=== PATIENT | female | born 1945 | race Caucasian/White ===

== ENCOUNTER → 2016-11-28 | Outpatient (CLI) | payer MEDICARE, OTHER ==
--- NOTE | 2016-11-28 12:06 | MM ---
Reason for exam: additional evaluation requested from prior study. Last mammogram was performed 1 year ago. History: Patient is postmenopausal and has history of breast cancer at age 63. Family history of premenopausal breast cancer in mother at age 45. Malignant left breast needle localization of both breasts, November 28, 2008. Malignant left mammotome panel of the left breast, November 17, 2008. Radiation therapy of the left breast, 2008. Physical Findings: Nurse did not find any significant physical abnormalities on exam. MG 3D Diag Mammo W/Cad FEDERICA Bilateral CC and MLO view(s) were taken. Prior study comparison: November 26, 2015, bilateral MG 3d diag mammo w/cad FEDERICA. November 24, 2014, bilateral MG diagnostic mammo w CAD FEDERICA. Finding: There are typically benign calcifications in both breasts. Skin thickening on left is chronic. Previous biopsy changes on left breast. These results were verbally communicated with the patient and result sheet given to the patient on 11/28/16. ASSESSMENT: Benign, BI-RAD 2 RECOMMENDATION: Follow-up diagnostic mammogram of both breasts in 1 year.
== END | disposition home or self-care (01) ==
LOC: RADMAMWWP 11:05
PROVIDERS: ATTEND Radiology Diagnostic Radiology
DX: Z85.3 Personal history of malignant neoplasm of breast (principal)
CPT/HCPCS: G0204; G0279

== ENCOUNTER → 2017-11-30 | Outpatient (CLI) | payer MEDICARE, OTHER ==
--- NOTE | 2017-11-30 15:17 | MM ---
Reason for exam: additional evaluation requested from prior study. Last mammogram was performed 1 year ago. History: Patient is postmenopausal and has history of breast cancer at age 63. Family history of premenopausal breast cancer in mother at age 45. Malignant left breast needle localization of both breasts, November 28, 2008. Malignant left mammotome panel of the left breast, November 17, 2008. Radiation therapy of the left breast, 2008. Physical Findings: Nurse did not find any significant physical abnormalities on exam. MG 3D Diag Mammo W/Cad FEDERICA Bilateral CC and MLO view(s) were taken. Prior study comparison: November 28, 2016, bilateral MG 3d diag mammo w/cad FEDERICA. November 26, 2015, bilateral MG 3d diag mammo w/cad FEDERICA. November 24, 2014, bilateral MG diagnostic mammo w CAD FEDERICA. The breast tissue is heterogeneously dense. This may lower the sensitivity of mammography. Finding #1: There is a density in the left breast with distortion consistent with lumpectomy changes. Decrease in size. Finding #2: There are benign round, linear calcifications in both breasts. No discrete abnormality. These results were verbally communicated with the patient and result sheet given to the patient on 11/30/17. ASSESSMENT: Benign, BI-RAD 2 RECOMMENDATION: Follow-up diagnostic mammogram of both breasts in 1 year.
== END | disposition home or self-care (01) ==
LOC: RADMAMWWP 10:52
PROVIDERS: ATTEND Radiology Diagnostic Radiology
DX: Z08 Encounter for follow-up examination after completed treatment for malignant neoplasm (principal); Z85.3 Personal history of malignant neoplasm of breast
CPT/HCPCS: 77066; G0279; 77062

== ENCOUNTER → 2018-10-29 | Outpatient (CLI) | payer MEDICARE ==
--- NOTE | 2018-10-29 15:35 | XR ---
EXAMINATION TYPE: XR Hip Complete LT DATE OF EXAM: 10/29/2018 COMPARISON: None HISTORY: Pain TECHNIQUE: 2 view left hip FINDINGS: Femoral head articulates with the acetabulum. Mild narrowing of the joint space is present. No acute fractures or dislocations are evident. IMPRESSION: 1. Minimal degenerative joint changes of the left hip.
--- NOTE | 2018-10-29 15:37 | XR ---
EXAMINATION TYPE: XR lumbosacral spine min 4V DATE OF EXAM: 10/29/2018 COMPARISON: None HISTORY: Pain lower back TECHNIQUE: Five-view lumbar spine FINDINGS: Vascular calcification is within the aorta. Some minimal fusiform prominence of the distal abdominal aorta is not excluded. Loss of disc height is present L5-S1. Some posterior disc space narr owing is present through the remaining portions of the lumbar spine. Facet degenerative changes present which appears greater at the L5-S1 level IMPRESSION: 1. Degenerative facet changes. No acute abnormality evident. 2. There is some prominence of the calcified aorta and the oblique view. Consider ultrasound for aort ic evaluation for aneurysm.
== END | disposition home or self-care (01) ==
LOC: RADXRMAIN 14:27
PROVIDERS: ATTEND Internal Medicine
DX: M47.817 Spondylosis without myelopathy or radiculopathy, lumbosacral region (principal); M16.12 Unilateral primary osteoarthritis, left hip
CPT/HCPCS: 72110; 73502

== ENCOUNTER → 2018-12-03 | Outpatient (CLI) | payer MEDICARE ==
--- NOTE | 2018-12-04 08:12 | MM ---
Reason for exam: additional evaluation requested from prior study. Last mammogram was performed 1 year ago. History: Patient is postmenopausal and has history of breast cancer at age 63. Family history of premenopausal breast cancer in mother at age 45. Malignant left breast needle localization of both breasts, November 28, 2008. Malignant left mammotome panel of the left breast, November 17, 2008. Radiation therapy of the left breast, 2008. Physical Findings: Patient refused breast exam. MG 3D Diag Mammo W/Cad FEDERICA Bilateral CC and MLO view(s) were taken. ML and spot compression CC view(s) were taken of the right breast. Prior study comparison: November 30, 2017, bilateral MG 3d diag mammo w/cad FEDERICA. November 28, 2016, bilateral MG 3d diag mammo w/cad FEDERICA. The breast tissue is heterogeneously dense. This may lower the sensitivity of mammography. Stable benign calcifications. Stable post operative changes in the left breast. No significant new findings when compared with previous films. These results were verbally communicated with the patient and result sheet given to the patient on 12/03/18. ASSESSMENT: Benign, BI-RAD 2 RECOMMENDATION: Follow-up diagnostic mammogram of both breasts in 1 year.
== END | disposition home or self-care (01) ==
LOC: RADMAMWWP 14:01
PROVIDERS: ATTEND Radiology Diagnostic Radiology
DX: Z08 Encounter for follow-up examination after completed treatment for malignant neoplasm (principal); Z85.3 Personal history of malignant neoplasm of breast
CPT/HCPCS: 77066; G0279; 77062

== ENCOUNTER → 2019-04-22 | Outpatient (CLI) | payer MEDICARE ==
--- NOTE | 2019-04-22 09:00 | US ---
EXAMINATION TYPE: US duplex aorta DATE OF EXAM: 04/22/2019 COMPARISON: NONE CLINICAL HISTORY: I70.0 Atherosclerosis of aorta. Calcified aorta EXAM MEASUREMENTS: Abdominal Aorta: Proximal: 2.7 x 2.6cm Mid: 3.1 x 2.7cm Distal: 3.6 x 2.8cm Bifurcation: RT: 1.1 x 0.8cm LT: 1.0 x 0.8cm Calcifications noted throughout abdominal aorta. Mild mid and distal abdominal aortic aneurysm. 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 Moderate atheromatous changes throughout the visualized abdominal aor ta.
== END ==
LOC: RADUSWWP 08:27
PROVIDERS: ATTEND Internal Medicine
DX: I71.4 Abdominal aortic aneurysm, without rupture (principal); I70.0 Atherosclerosis of aorta
CPT/HCPCS: 93979

== ENCOUNTER → 2019-12-05 | Outpatient (CLI) | payer MEDICARE ==
--- NOTE | 2019-12-05 14:28 | MM ---
Reason for exam: additional evaluation requested from prior study. Last mammogram was performed 1 year ago. History: Patient is postmenopausal and has history of breast cancer at age 63. Family history of premenopausal breast cancer in mother at age 45. Malignant left breast needle localization of both breasts, November 28, 2008. Malignant left mammotome panel of the left breast, November 17, 2008. Lumpectomy of the left breast, 2008. Radiation therapy of the left breast, 2008. Physical Findings: Nurse did not find any significant physical abnormalities on exam. MG 3D Diag Mammo W/Cad FEDERICA Bilateral CC and MLO view(s) were taken. Prior study comparison: December 03, 2018, bilateral MG 3d diag mammo w/cad FEDERICA. November 30, 2017, bilateral MG 3d diag mammo w/cad FEDERICA. The breast tissue is heterogeneously dense. This may lower the sensitivity of mammography. Benign calcifications. Post lumpectomy changes on left breast. These results were verbally communicated with the patient and result sheet given to the patient on 12/05/19. ASSESSMENT: Benign, BI-RAD 2 RECOMMENDATION: Follow-up diagnostic mammogram of both breasts in 1 year.
== END | disposition home or self-care (01) ==
LOC: RADMAMWWP 12:49
PROVIDERS: ATTEND Radiology Diagnostic Radiology
DX: Z08 Encounter for follow-up examination after completed treatment for malignant neoplasm (principal); Z85.3 Personal history of malignant neoplasm of breast
CPT/HCPCS: 77066; G0279; 77062

== ENCOUNTER → 2020-12-07 | Outpatient (CLI) | payer MEDICARE ==
--- NOTE | 2020-12-07 13:56 | MM ---
Reason for exam: additional evaluation requested from prior study. Last mammogram was performed 1 year ago. History: Patient is postmenopausal and has history of breast cancer at age 63. Family history of premenopausal breast cancer in mother at age 45. Malignant left breast needle localization of both breasts, November 28, 2008. Malignant left mammotome panel of the left breast, November 17, 2008. Lumpectomy of the left breast, 2008. Radiation therapy of the left breast, 2008. Physical Findings: Nurse did not find any significant physical abnormalities on exam. MG 3D Diag Mammo W/Cad FEDERICA Bilateral CC and MLO view(s) were taken. Prior study comparison: December 05, 2019, bilateral MG 3d diag mammo w/cad FEDERICA. December 03, 2018, bilateral MG 3d diag mammo w/cad FEDERICA. November 30, 2017, bilateral MG 3d diag mammo w/cad FEDERICA. November 28, 2016, bilateral MG 3d diag mammo w/cad FEDERICA. There are scattered fibroglandular densities. Post operative changes left breast. Benign secretory calcifications. No significant new findings when compared with previous films. These results were verbally communicated with the patient and result sheet given to the patient on 12/07/20. ASSESSMENT: Benign, BI-RAD 2 RECOMMENDATION: Routine screening mammogram of both breasts in 1 year.
== END | disposition home or self-care (01) ==
LOC: RADMAMWWP 12:49
PROVIDERS: ATTEND Radiology Diagnostic Radiology
DX: N64.89 Other specified disorders of breast (principal); R92.1 Mammographic calcification found on diagnostic imaging of breast; Z78.0 Asymptomatic menopausal state; Z80.3 Family history of malignant neoplasm of breast; Z85.3 Personal history of malignant neoplasm of breast
CPT/HCPCS: 77066; G0279; 77062

== ENCOUNTER → 2021-03-11 | Outpatient (CLI) | payer MEDICARE ==
[2021-03-11 13:56] LABS: HCT 41.7 % (34.0-46.0); HGB 13.1 gm/dL (11.4-16.0); MCH 31.9 pg (25.0-35.0); MCHC 31.5 g/dL (31.0-37.0); Platelet Count 193 k/uL (150-450); RBC 4.13 m/uL (3.80-5.40); WBC 10.6 k/uL (3.8-10.6)
[2021-03-11 13:57] LABS: Appearance,Urine Clear (Clear); Bacteria,Urine Rare /hpf; Bilirubin,Urine Negative (Negative); Blood,Urine Small (Negative); Color,Urine Yellow; Glucose,Urine (UA) Negative (Negative); Hyaline Casts,Urine 4 /lpf (0-2); Ketones,Urine Negative (Negative); Leukocyte Esterase,Urine Negative (Negative); Mucus,Urine Rare /hpf; Nitrite,Urine Negative (Negative); PH, Urine 5.5 (5.0-8.0); Protein,Urine 1+ (Negative); RBC,Urine 1 /hpf (0-5); Specific Gravity,Urine 1.021 (1.001-1.035); Squamous Epithelial Cell,Urine 1 /hpf (0-4); Urobilinogen,Urine <2.0 mg/dL (<2.0); WBC,Urine 1 /hpf (0-5)
[2021-03-11 14:04] LABS: Partial Thromboplastin Time 22.9 sec (22.0-30.0); Prothrombin Time 10.4 sec (9.0-12.0)
[2021-03-11 14:10] LABS: Albumin 3.9 g/dL (3.5-5.0); Calcium 9.7 mg/dL (8.4-10.2); Potassium 4.7 mmol/L (3.5-5.1); Total Bilirubin 0.3 mg/dL (0.2-1.3); Total Protein 6.8 g/dL (6.3-8.2)
== END | disposition home or self-care (01) ==
LOC: LABPAT 13:08
PROVIDERS: ATTEND Orthopaedic Surgery
DX: Z01.818 Encounter for other preprocedural examination (principal); I21.19 ST elevation (STEMI) myocardial infarction involving other coronary artery of inferior wall; I25.9 Chronic ischemic heart disease, unspecified; R00.1 Bradycardia, unspecified; R94.31 Abnormal electrocardiogram [ECG] [EKG]
CPT/HCPCS: 36415; 80053; 81001; 85027; 85610; 85730; 87070; 93005

== ENCOUNTER → 2021-04-02 | Outpatient (CLI) | payer MEDICARE ==
[2021-04-02 12:34] LABS: Potassium 4.4 mmol/L (3.5-5.1)
[2021-04-02 13:01] LABS: HCT 37.3 % (34.0-46.0); HGB 12.3 gm/dL (11.4-16.0); MCH 32.8 pg (25.0-35.0); MCV 99.2 fL (80.0-100.0); Mean Platelet Volume 8.7; Platelet Count 153 k/uL (150-450); RBC 3.76 m/uL (3.80-5.40); RDW 13.1 % (11.5-15.5); WBC 11.3 k/uL (3.8-10.6)
== END | disposition home or self-care (01) ==
LOC: LABPAT 10:35
PROVIDERS: ATTEND Internal Medicine Interventional Cardiology
DX: Z01.812 Encounter for preprocedural laboratory examination (principal); R94.39 Abnormal result of other cardiovascular function study
CPT/HCPCS: 36415; 80051; 82565; 84520; 85027

== ENCOUNTER 2021-04-07 07:24 | Day surgery (SDC) | payer MEDICARE ==
[2021-04-05 10:21] VITALS: BMI 27.9
[~2021-04-07 07:24] MED LIST: ALPRAZolam 0.25 MG TAB PO PRN; ALPRAZolam 0.5 MG TAB PO PRN; ASPIRIN 325 MG TAB PO STA; ATORVASTATIN 80 MG TAB PO STA; HEPARIN SODIUM,PORCINE 10,000 UNIT in SODIUM CHLORIDE 0.9% 1,000 ML IRRIGATION PRN; HEPARIN SODIUM,PORCINE 2,500 UNIT in SODIUM CHLORIDE 0.9% 250 ML IRRIGATION PRN; NITROGLYCERIN SL TABS 0.4 MG TAB SUBLINGUAL PRN; SODIUM CHLORIDE 0.9% 1,000 ML in EMPTY BAG 1 BAG IV SCH
[2021-04-07] MEDS ORDERED: SODIUM CHLORIDE 0.9% 1,000 ML IV SCH ×2 (07:30→12:45)
[2021-04-07 07:52] VITALS: RESP 18; TEMP 98
[2021-04-07] MEDS ORDERED: LIDOCAINE 1% INJ 10MG/ML (20 ML MDV) SQ ONE (11:36)
[2021-04-07] MEDS ORDERED: MIDAZOLAM 2 MG/2 ML VIAL IV ONE (11:36)
[2021-04-07] MEDS: VERAPAMIL SYRINGE (5 MG/10 ML) INTRAARTER ONE ×2 (11:40→12:25)
[2021-04-07] MEDS ORDERED: HEPARIN SODIUM 1,000 UN/ML (10ML VL) ONE (11:41)
[2021-04-07] MEDS: HEPARIN SODIUM 1,000 UN/ML (10ML VL) IV ONE ×2 (11:43→12:01)
[2021-04-07] MEDS ORDERED: NITROGLYCERIN SL TABS 0.4 MG TAB SUBLINGUAL ONE ×2 (11:50)
[2021-04-07] MEDS: NITROGLYCERIN 1000MCG/10ML SYRINGE INTRACORON ONE ×4 (11:53→12:25)
[2021-04-07] MEDS ORDERED: amLODIPine 5 MG TAB ONE (11:55)
[2021-04-07] MEDS ORDERED: fentaNYL (PF) 50 MCG/ML 5 ML AMP IV ONE (12:01)
[2021-04-07] MEDS ORDERED: IOPAMIDOL-370 100ML BTL INJ ONE (12:08)
[2021-04-07] MEDS ORDERED: CLOPIDOGREL 75 MG TAB ONE (12:21)
[2021-04-07] MEDS ORDERED: IOPAMIDOL-300 100ML BTL INJ ONE (12:24)
[2021-04-07] MEDS ORDERED: CLOPIDOGREL 75 MG TAB PO ONE (12:24)
--- NOTE | 2021-04-07 13:35 | CC ---
CARDIAC CATHETERIZATION REPORT DATE OF SERVICE: 04/07/2021. PROCEDURES: 1. Left heart catheterization and coronary angiography. 2. Percutaneous transluminal coronary angioplasty and stenting of a first obtuse marginal branch of circumflex with a drug-eluting stent. PERFORMED BY: Dr. Bibi Desir. Moderate conscious sedation time was 51 minutes. Patient was administered Versed. Oxygen saturation, hemodynamics and EKG were monitored closely. CLINICAL INFORMATION: Mrs. Katie Parry is a 75-year-old lady with a history of smoking, hypertension and hypercholesterolemia who was seen by me recently prior to elective orthopedic surgery. I performed a stress test in view of her symptoms of shortness of breath and chest tightness, and study revealed evidence of old inferior OR with significant area of partial reversibility in the lateral wall. She was advised cardiac cath after due discussion regarding risks, benefits and options. PROCEDURE NOTE: Under local anesthesia and strict aseptic precautions, a 6-Nigerian introducer was placed in the right radial artery. Using a JL3.5 and JR4 catheters, I performed coronary angiography, and the same right catheter was used to check LV pressure but did not perform LV-gram. I noted that she had a significant lesion in the circumflex marginal and a chronic total occlusion of the RCA. I performed stenting of the circumflex marginal uneventfully with excellent result. The sheath was then taken out and TR band applied as per protocol and she was sent to the room in stable condition. Results were discussed with the patient and her daughter. She will be discharged later on today if she remains stable. She received 600 mg of Plavix and also 5000 units of heparin, and her ACT was about 304. CARDIAC CATHETERIZATION FINDINGS: The left ventricular end-diastolic pressure was 20 mmHg without any gradient across aortic valve. CORONARY ANGIOGRAPHY FINDINGS: RIGHT CORONARY ARTERY: This is probably a dominant vessel, totally occluded with very limited antegrade flow. There is a [id number] ipsilateral collateral with reconstitution in the mid portion, but this seems to be a chronic occlusion without much antegrade flow. LEFT MAIN CORONARY ARTERY: Short, patent, disease-free vessel that bifurcates into LAD and circumflex. LEFT ANTERIOR DESCENDING CORONARY ARTERY: Good-caliber vessel, extends along the anterior wall, gives off a large diagonal branch proximally that subdivides into 2 branches and LAD extends all the way to the apex, supplies a sizable amount of myocardium, has minor irregularities of no more than 30% to 35%. The diagonal branch, which is large, is free of significant disease. LEFT POSTERIOR CIRCUMFLEX CORONARY ARTERY: This is a very tortuous vessel. Very proximally it gives off an obtuse marginal that has mild diffuse disease but small in caliber. Second obtuse marginal comes off after two 90-degree bends, and this second obtuse marginal has 80% to 90% stenosis in the proximal portion which is very eccentric and calcified. The continuation of circumflex beyond that is free of significant disease; has minor irregularities. Circumflex therefore has a second obtuse marginal which is large, of 3.0 caliber vessel with a very tight 80% eccentric lesion, best seen in the [place] caudal projection, with calcification. COLLATERAL CIRCULATION: There is very limited amount of collaterals opacifying the distal branch of RCA. Collaterals are, however, suboptimal. LV-gram was not performed. FINAL IMPRESSION: This patient has total occlusion of a dominant RCA which is a chronic total occlusion, 80% to 90% circumflex marginal stenosis, no significant disease in rest of the circumflex and also LAD and diagonal. Filling pressures are elevated, but no gradient across aortic valve. RECOMMENDATIONS: I recommended PCI of circumflex marginal and performed this in the same setting. PERCUTANEOUS CORONARY INTERVENTION PROCEDURE DETAILS: I used a JL3.5 guide catheter to cannulate the left coronary artery and a run-through wire to cross the lesion in the circumflex marginal. A 2.5 caliber NC Trek balloon of 12 mm length was used to pre-dilate the lesion. I then deployed a 3.0 caliber 12 mm Xience stent at 13 atmospheres. Patient had chest pain and slightly more prominent ST- segment depression. Excellent angiographic result was achieved without complication. The sheath was then taken out and TR band applied as per protocol. Patient received 600 mg of Plavix. She also received heparin 5000 units and ACT was 304. Excellent angiographic result without complication was achieved. I expect that she will be discharged later this evening if she remains stable and I will see her in the office on Monday. Patient's elective orthopedic surgery has been canceled and should not be performed for a minimum of 6 months; I will discuss further with the primary care physician. MMODL / IJN: [id number] /
[2021-04-07] MEDS ORDERED: SODIUM CHLORIDE 0.9% 500 ML 500 ML IV ONE (16:40)
[2021-04-07 17:31] VITALS: BP 135/76; PULSE 52
== END 2021-04-07 18:01 | disposition home or self-care (01) ==
LOC: CATHCVL 07:24
PROVIDERS: ATTEND Internal Medicine Interventional Cardiology
DX: I25.10 Atherosclerotic heart disease of native coronary artery without angina pectoris (principal); Z20.822 Contact with and (suspected) exposure to COVID-19
CPT/HCPCS: 93458; 87635; C9600; C1887; C1894; C1725; C1769; C1874; J2250; J2001; J3010; J1644; Q9967 ×2

== ENCOUNTER → 2021-11-26 | Outpatient (CLI) | payer MEDICARE ==
[2021-11-26 15:22] LABS: INR 0.9 (<1.2); Partial Thromboplastin Time 22.8 sec (22.0-30.0); Prothrombin Time 10.1 sec (9.0-12.0)
[2021-11-26 22:25] LABS: HCT 38.1 % (37.2-46.3); HGB 11.5 g/dL (12.0-15.0); MCH 30.3 pg (27.0-32.0); MCHC 30.2 g/dL (32.0-37.0); MCV 100.3 fL (80.0-97.0); NRBC Per 100 WBC 0 /100 WBCS (0.0-0.0); Platelet Count 166 X 10*3/uL (140-440); RDW 14.3 % (11.5-14.5); WBC 9.78 X 10*3/uL (4.50-10.00)
[2021-11-26 22:42] LABS: Appearance,Urine Clear (Clear); Bilirubin,Urine Negative (Negative); Blood,Urine Negative (Negative); Color,Urine Yellow (Yellow); Ketones,Urine Negative (Negative); Nitrite,Urine Negative (Negative); PH, Urine 5.5 (5.0-8.0); Urobilinogen,Urine 0.2 (0.2,1.0)
[2021-11-26 22:47] LABS: African American GFR (CKD) 41.9 (60.0-200.0); Albumin 4.1 g/dL (3.8-4.9); Albumin/Globulin Ratio 1.86 (1.60-3.17); Anion Gap 11.2 mmol/L (10.00-18.00); BUN/Creat Ratio 31.93 Ratio (12.00-20.00); Blood Urea Nitrogen 44.7 mg/dL (9.0-27.0); Carbon Dioxide 27.8 mmol/L (20.0-27.5); Globulin 2.2 g/dL (1.6-3.3); Non-African American GFR(CKD) 36.2 (60.0-200.0); Potassium 4.9 mmol/L (3.5-5.5); Total Bilirubin 0.2 mg/dL (0.30-1.20); Total Protein 6.3 g/dL (6.2-8.2)
== END | disposition home or self-care (01) ==
LOC: LABPAT 12:53
PROVIDERS: ATTEND Orthopaedic Surgery
DX: Z01.818 Encounter for other preprocedural examination (principal); I45.10 Unspecified right bundle-branch block; M16.12 Unilateral primary osteoarthritis, left hip; R00.1 Bradycardia, unspecified; R94.31 Abnormal electrocardiogram [ECG] [EKG]
CPT/HCPCS: 80053; 81003; 85027; 85610; 85730; 87070; 93005

== ENCOUNTER 2021-12-07 05:34 | Day surgery (SDC) | payer MEDICARE ==
[2021-11-30 11:14] VITALS: BMI 27.3
[~2021-12-07 05:34] MED LIST changes: +ACETAMINOPHEN TAB 500 MG TAB PO PRN; -ALPRAZolam 0.25 MG TAB PO PRN; -ALPRAZolam 0.5 MG TAB PO PRN; -ASPIRIN 325 MG TAB PO STA; -ATORVASTATIN 80 MG TAB PO STA; +GABAPENTIN 300 MG CAP PO PRN; -HEPARIN SODIUM,PORCINE 10,000 UNIT in SODIUM CHLORIDE 0.9% 1,000 ML IRRIGATION PRN; -HEPARIN SODIUM,PORCINE 2,500 UNIT in SODIUM CHLORIDE 0.9% 250 ML IRRIGATION PRN; +MELOXICAM 7.5 MG TAB PO PRN; -NITROGLYCERIN SL TABS 0.4 MG TAB SUBLINGUAL PRN; -SODIUM CHLORIDE 0.9% 1,000 ML in EMPTY BAG 1 BAG IV SCH; +TRANEXAMIC ACID IN NACL,ISO-OS 1,000 MG in SALINE 1 100ML.BAG IVPB PRN
[2021-12-07] MEDS ORDERED: ONDANSETRON 4 MG/2 ML VIAL IVP ONE (05:50)
[2021-12-07] MEDS ORDERED: DEXAMETHASONE SOD PHOSPHATE 4 MG/ML 1 ML VIAL IV ONE (05:50)
[2021-12-07] MEDS: LACTATED RINGERS 1,000 ML IV SCH (06:17)
[2021-12-07] MEDS ORDERED: LIDOCAINE 2% INJ 20 MG/ML (2 ML VIAL) ONE (06:50)
[2021-12-07] MEDS ORDERED: ePHEDrine 50 MG/ML 1 ML VIAL ONE (06:50)
[2021-12-07] MEDS ORDERED: TRANEXAMIC ACID IN NACL,ISO-OS 1,000 MG/100 ML BAG ONE (06:50)
[2021-12-07] MEDS ORDERED: fentaNYL (PF) 50 MCG/ML 2 ML AMP ONE (06:50)
[2021-12-07] MEDS ORDERED: MIDAZOLAM 2 MG/2 ML VIAL ONE (06:50)
[2021-12-07] MEDS ORDERED: PROPOFOL 10 MG/ML 20 ML VIAL IV ONE (06:50)
[2021-12-07] MEDS ORDERED: PHENYLEPHRINE-0.9% NACL SYG 1,000 MCG/10 ML SYRINGE ONE (06:50)
[2021-12-07] MEDS ORDERED: ROPIVACAINE 5 MG/ML 30 ML VIAL MISCELLANE ONE (07:59)
--- NOTE | 2021-12-07 08:07 | P.OP ---
Date of Procedure: 12/07/21 Preoperative Diagnosis: Severe osteoarthritis left hip Postoperative Diagnosis: Severe osteoarthritis left hip Procedure(s) Performed: Left total hip arthroplasty with a direct anterior approach Implants: [employer] Polarstem standard size 3 collar [employer] R3, 3 hole hemispherical acetabular shell, 48 mm [employer] Reflection 6.5 mm cancellus screw, 20 mm, 25 mm [employer] R3, XLPE 20 acetabular liner [employer]hew Oxinium femoral head 32 m, +0 All components were press-fit. The articulation is Oxinium on polyethylene. Anesthesia: spinal Surgeon: aHo Parker Mucker [place]ffer[place] #1: Tank Aviles Estimated Blood Loss (ml): 200 Pathology: other (Femoral head) Condition: stable Disposition: PACU Indications for Procedure: After failure of conservative treatment we discussed the surgical and nonsu rgical treatment options at length. Patient wishes to proceed with a total hip arthroplasty with a direct anterior approach. Complications specific to this procedure were discussed at length, including but not limited to infection, leg length discrepancy, dislocation, nerve injury, and fracture. Covid-19 was also discussed at length with the patient, and they are aware of the current policies and procedures. The patient was given the option of delaying surgery, but they elect to proceed knowing these risks. Patient is aware of all these complications and informed consent was obtained Operative Findings: The operative findings are consistent with severe osteoarthritis of the left hip Description of Procedure: Patient was seen and evaluated in the preoperative area and the consent was reviewed. The operative site was marked with a skin marker. The patient was then brought to the operating room and given preoperative antibiotics intravenously. 1 g of Tranexamic acid was also given intravenously. A spinal anesthetic was administered by the anesthesia department. The patient was then placed on the [place] table with the bony prominences well-padded. The hip area was then prepped with a ChloraPrep solution and draped in the usual sterile fashion. A universal timeout was then performed, which confirmed the patient's name, surgical site, ALLERGIES, and procedure being performed on the consent. Next the incision site was located at 1 cm distal and 2 cm lateral to the anterior superior iliac spine. The skin and subcutaneous tissues were sharply incised. Incision was carefully dissected down to the fascia overlying the tensor fascia flori muscle. This fascia was then incised in line with the incision. Care was taken to stay laterally in order to avoid injuring the lateral femoral cutaneous nerve. Next, using blunt finger dissection, the tensor fascia flori muscle was dissected off its investing fascia. The muscle was then carefully retracted laterally with a cobra retractor over the lateral neck of the femur. Next, the circumflex vessels were identified and cauterized using the AquaMantis device. The anterior hip capsule was then exposed. The capsule was then opened and an inverted T fashion. Cobra retractors were then placed intracapsularly. The retractors were maintained intracapsular throughout the procedure. The proximal femur was then visualized. Fluoroscopic x-rays were then taken in order to evaluate the preoperative leg lengths. A small amount of traction was placed on the leg. The femoral neck was then osteotomized at the appropriate level above the lesser trochanter. A small wedge of bone was then removed from the remaining femoral head. Next, using a corkscrew the femoral head was removed from the acetabulum. On gross visual inspection, the femoral head had complete loss of articular cartilage and multiple periarticular osteophytes. The femoral head was then adam sured. Attention was then turned to the acetabulum. The acetabulum was exposed and any remaining labrum was excised. Sequential reaming of the acetabulum was performed using fluoroscopic guidance until there was a good bed of bleeding cancellus bone. When the appropriate size was reached, a trial was then placed. The position and fit of the trial was checked with fluoroscopy. The trial was then removed. Then, using fluoroscopic guidance, the final implant was impacted at 20 of anteversion and 40 of abduction, and fully seated in the acetabulum. 2 screws were then placed in the acetabulum. Again fluoroscopy was used to check position of the screws. Next, the liner was then impacted, with a 20 elevated liner located in the anterior superior quadrant. Component locking was confirmed. Attention was then directed to the femur. With the aid of the [place] table, the femur was externally rotated to approximately 130, extended, and adducted under the opposite leg. A side hook was then placed under the proximal femur, and the side hook elevator was used to elevate the proximal femur while releasing the capsule. Retractors were then placed. A capsular release was performed, as well as a release of the conjoined tendon, which afforded excellent visualization of the proximal femur. Next, a box osteotome was used to lateralize the proximal femur. A wood milling machine hand was then used to locate the femoral canal. Sequential broaching was then performed with appropriate size which afforded excellent fixation in the proximal femur. A trial was then placed with appropriate head and neck, and the hip was gently reduced with the aid of the [place] table. Fluoroscopy was then used to check position of the components, as well as to ensure equal leg lengths. The hip was then gently dislocated and the trials were then removed. Final implants were then impacted and the hip was again reduced. Final fluoroscopic x-rays confirmed that the components were in anatomic position, as well as equal leg lengths. The hip was also taken through range of motion, and found to be stable. The hip was then copiously irrigated with antibiotic solution with pulsatile lavage. The hip was then irrigated with Irrisept solution. The soft tissues were then injected with a ropivacaine solution. A second dose of 1 g of Tranexamic acid was also given intravenously. The fascia was then closed with 2-0 strata fix suture. The subcutaneous tissue was closed with 3-0 Vicryl. The subcuticular tissue was closed with 3-0 strata fix suture. The skin was then closed with Exofin skin glue. After the glue and dried, and Optifoam silver impregnated dressing was applied. The patient was then transferred to the recovery room in stable condition. The stylist assistant ADINA Watkins was required due to the complexity of surgery, and the need for skilled surgical brace maker for positioning, draping, exposure, retraction, and closure of the wound.
--- NOTE | 2021-12-07 08:21 | XR ---
Intraoperative/procedural fluoroscopic services were provided. Total fluoroscopy time is 30.1 seconds with a total of 3 submitted images to PACS. Please see the operative/procedural note for further det ails.
[2021-12-07] MEDS ORDERED: HYDROmorphone 0.5 MG/0.5 ML SYRINGE IVP PRN ×3 (08:46)
[2021-12-07] MEDS ORDERED: MAGNESIUM HYDROXIDE 2,400 MG/10 ML CUP PO PRN (08:46)
[2021-12-07] MEDS ORDERED: ONDANSETRON 4 MG/2 ML VIAL IVP PRN (08:46)
[2021-12-07] MEDS ORDERED: hydrOXYzine pamoate 25 MG CAP PO PRN (08:46)
[2021-12-07] MEDS ORDERED: HYDROcodone/APAP 5-325MG 1 EACH TAB PO PRN (08:46)
[2021-12-07] MEDS ORDERED: TEMAZEPAM 15 MG CAP PO PRN (08:46)
[2021-12-07] MEDS ORDERED: NALOXONE 0.4 MG/ML 1 ML VIAL IV PRN (08:46)
[2021-12-07] MEDS: HYDROmorphone 0.5 MG/0.5 ML SYRINGE IVP PRN ×2 (09:15→09:35)
[2021-12-07] MEDS ORDERED: KETOROLAC 15 MG/ML 1 ML VIAL IVP ONE (09:20)
[2021-12-07] MEDS ORDERED: SODIUM CHLORIDE 0.9% 1,000 ML IV ONE ×2 (09:30)
--- NOTE | 2021-12-07 10:23 | XR ---
EXAMINATION TYPE: XR Hip Limited LT DATE OF EXAM: 12/07/2021 10:15 AM INDICATION: Patient age:Female; 76 years old; Reason for study: Status post hip surgery, assess surgical alignment; COMPARISON: None. TECHNIQUE: The left hip was examined in the frontal FINDINGS: Post arthroplasty changes, hardware is intact, alignment is appropriate. No evidence of fra cture. Postoperative changes soft tissue. No evidence of any acute osseous pathology or joint disloca tion. IMPRESSION: Total hip arthroplasty with hardware intact and in appropriate alignment. No acute fracture.
[2021-12-07] MEDS: SODIUM CHLORIDE 0.9% 1,000 ML IV SCH (12:30)
[2021-12-07] MEDS: clonazePAM 1 MG TAB PO SCH ×2 (14:39→21:32)
[2021-12-07] MEDS: LOSARTAN 50 MG TAB PO SCH (14:39)
--- NOTE | 2021-12-07 15:27 | P.CONS ---
History of Present Illness - Reason for Consult Consult date: 12/07/21 - History of Present Illness Katie Parry, is a 76-year-old female who was admitted to [facility] emergency room by Dr. Hao Hurtado and underwent left total hip arthroplasty today, patient was admitted to medical floor post surgery medical consultation was requested for management while hospitalized. Patient has a known history of hypertension, hyperlipidemia, depression with anxiety disorder, history of osteoarthritis, history of coronary artery disease with history of angioplasty and stent placement in March 2021, history of breast cancer, and history of thyroid disease. Patient was seen on the medical floor post surgery she is alert and oriented 3 in no distress she denies any complaints at this time there is no fever or chills no headache or dizziness no chest pain no shortness of breath no cough no nausea or vomiting no abdominal pain no diarrhea no blood in the stools no burning with urination no frequency or urgency and no hematuria. Past Medical History Past Medical History: Coronary Artery Disease (CAD), Cancer, Myocardial Infarction (VA), Osteoarthritis (OA), Thyroid Disorder Additional Past Medical History / Comment(s): PAST HISTORY OF THYROID PROBLEMS, LEFT BREAST CANCER, swollen feet/takes Lasix Last Myocardial Infarction Date:: 04/13 PER EKG /HEART CATH History of Any Multi-Drug Resistant Organisms: None Reported Past Surgical History: Breast Surgery, Cholecystectomy, Heart Catheterization With Stent, Tonsillectomy Additional Past Surgical History / Comment(s): BILATERAL CATARACT SURGERY , LEFT BREAST LUMPECTOMY,LAPAROTOMY FOR ECTOPIC PREG, Left TIFFANY (12/07/21). Past Anesthesia/Blood Transfusion Reactions: No Reported Reaction Date of Last Stent Placement:: 04/07/21 Past Psychological History: Anxiety, Panic Disorder Additional Psychological History / Comment(s): PAST HISTORY Smoking Status: Current every day smoker Past Alcohol Use History: None Reported Additional Past Alcohol Use History / Comment(s): TRYING TO QUIT SMOKING, STARTED SMOKING AT AGE 21 SMOKES 1 PPD DONE TO 1/2 PACK NOW. Past Drug Use History: None Reported - Past Family History Mother Family Medical History: Cancer, Deep Vein Thrombosis (DVT) Medications and Allergies Home Medications Medication Instructions Recorded Confirmed Type Cholecalciferol [Vitamin D3 (25 25 mcg PO DAILY 03/15/21 12/07/21 History Mcg = 1000 Iu)] Rosuvastatin Calcium [Crestor] 10 mg PO DAILY 03/15/21 12/07/21 History Sertraline [Zoloft] 200 mg PO HS 03/15/21 12/07/21 History clonazePAM [KlonoPIN] 1 mg PO BID 03/15/21 12/07/21 History Losartan [Cozaar] 50 mg PO DAILY 04/05/21 12/07/21 History Metoprolol Tartrate [Lopressor] 25 mg PO HS 04/05/21 12/07/21 History Metoprolol Tartrate [Lopressor] 50 mg PO QAM 04/05/21 12/07/21 History Aspirin EC [Ecotrin Low Dose] 81 mg PO DAILY 11/30/21 12/07/21 History Clopidogrel [Plavix] 75 mg PO DAILY 11/30/21 12/07/21 History Furosemide [Lasix] 40 mg PO DAILY 11/30/21 12/07/21 History Aspirin 325 mg PO BID #60 tab 12/07/21 Rx HYDROcodone/APAP 5-325MG [[place] 5] 1 - 2 each PO Q6HR PRN #32 tab 12/07/21 Rx Ondansetron [Zofran] 4 mg PO Q6HR PRN #30 tab 12/07/21 Rx Sennosides-Docusate Sodium 1 tab PO BID PRN #60 tablet 12/07/21 Rx [Senokot-S] Allergies Allergy/AdvReac Type Severity Reaction Status Date / Time No Known Allergies Allergy Verified 12/07/21 06:30 Physical Exam Vitals: Vital Signs Temp Pulse Pulse Resp BP Pulse Ox 12/07/21 13:08 97.8 F 59 L 20 97/58 94 L 12/07/21 12:00 52 L 16 122/58 99 12/07/21 11:30 49 L 16 115/88 97 12/07/21 11:00 50 L 16 123/72 96 12/07/21 10:30 46 L 16 139/67 99 12/07/21 09:30 50 L 16 144/60 96 12/07/21 09:15 48 L 16 115/66 96 12/07/21 09:00 48 L 16 132/60 97 12/07/21 08:45 48 L 16 143/78 100 12/07/21 08:32 98.2 F 55 L 14 143/78 100 12/07/21 06:15 96.8 F L 60 16 146/86 96 Intake and Output 12/06/21 12/07/21 12/07/21 22:59 06:59 14:59 Intake Total 850 350 Output Total 200 Balance 850 150 Intake: IV 850 350 Output: Estimated Blood Loss 200 Other: Weight 66.2 kg 66.2 kg In general patient is alert and oriented x 3 in no distress HEENT head normocephalic and atraumatic Neck is supple no JVD no goiter no lymphadenopathy no carotid bruit Chest examination is clear to auscultation no crackles no wheezing Cardiac exam reveals regular heart sounds S1 and S2 no gallops no murmurs Abdomen is soft nontender no organomegaly with normal bowel sounds Extremity exam reveals no edema no cyanosis or clubbing Neurological examination reveals no gross focal deficits Assessment and Plan Plan: Left hip osteoarthritis status post total left hip arthroplasty today, pain management and DVT prophylaxis as per orthopedic protocol Underlying history of hypertension Underlying history of hyperlipidemia Underlying history of coronary artery disease with history of angioplasty and stent placement in March 2021 Underlying history of depression with anxiety disorder Underlying history of thyroid disease with check TSH Previous history of breast cancer At this time patient was seen and examined Home medications reviewed and reordered Will check labs in a.m. and follow closely
[2021-12-07] MEDS ORDERED: SERTRALINE 100 MG TAB PO SCH (21:00)
[2021-12-07] MEDS ORDERED: METOPROLOL TARTRATE 25 MG TAB PO SCH (21:00)
[2021-12-07] MEDS ORDERED: SENNOSIDES-DOCUSATE SODIUM 1 EACH TAB PO SCH (21:00)
[2021-12-07] MEDS: ASPIRIN 325 MG TAB PO SCH (21:32)
[2021-12-08] MEDS: LACTATED RINGERS 1,000 ML IV SCH (00:30)
[2021-12-08] MEDS: SODIUM CHLORIDE 0.9% 1,000 ML IV SCH (00:30)
[2021-12-08] MEDS: HYDROcodone/APAP 5-325MG 1 EACH TAB PO PRN ×2 (05:53→15:40)
[2021-12-08 07:43] VITALS: RESP 13
[2021-12-08] MEDS ORDERED: METOPROLOL TARTRATE 50 MG TAB PO SCH (09:00)
[2021-12-08] MEDS ORDERED: ASPIRIN 81 MG PO SCH (09:00)
[2021-12-08] MEDS ORDERED: CHOLECALCIFEROL 25 MCG (1000 IU) TABLET PO SCH (09:00)
[2021-12-08] MEDS ORDERED: CLOPIDOGREL 75 MG TAB PO SCH (09:00)
[2021-12-08] MEDS ORDERED: ATORVASTATIN 20 MG TAB PO SCH (09:00)
[2021-12-08] MEDS ORDERED: FAMOTIDINE 20 MG TAB PO SCH (09:00)
[2021-12-08] MEDS ORDERED: FUROSEMIDE 40 MG TAB PO SCH (09:00)
[2021-12-08] MEDS: clonazePAM 1 MG TAB PO SCH (09:08)
[2021-12-08] MEDS: LOSARTAN 50 MG TAB PO SCH (09:08)
[2021-12-08] MEDS: ASPIRIN 325 MG TAB PO SCH (09:08)
[2021-12-08 09:23] LABS: Basophils # (A) 0.04 X 10*3/uL (0.00-0.10); Basophils % (A) 0.4 %; Eosinophils # (A) 0.03 X 10*3/uL (0.04-0.35); Eosinophils % (A) 0.3 %; HCT 29.1 % (37.2-46.3); HGB 9.2 g/dL (12.0-15.0); Immature Grans, Automated 0.5 %; Lymphocytes # (A) 1.19 X 10*3/uL (0.90-5.00); Lymphocytes % (A) 10.6 %; MCH 31.4 pg (27.0-32.0); MCHC 31.6 g/dL (32.0-37.0); MCV 99.3 fL (80.0-97.0); Mean Platelet Volume 10.6 fL (9.5-12.2); Monocytes # (A) 1.22 X 10*3/uL (0.20-1.00); Monocytes % (A) 10.9 %; NRBC Per 100 WBC 0 /100 WBCS (0.0-0.0); Neutrophils # (A) 8.66 X 10*3/uL (1.80-7.70); Neutrophils % (A) 77.3 %; Platelet Count 146 X 10*3/uL (140-440); RBC 2.93 X 10*6/uL (4.10-5.20); RDW 13.9 % (11.5-14.5)
[2021-12-08 09:28] LABS: ALT 14 U/L (8-44); AST 31 U/L (13-35); African American GFR (CKD) 30.9 (60.0-200.0); Albumin 3.6 g/dL (3.8-4.9); Alkaline Phosphatase 78 U/L (41-126); BUN/Creat Ratio 20.22 Ratio (12.00-20.00); Blood Urea Nitrogen 36.4 mg/dL (9.0-27.0); Calcium 8.6 mg/dL (8.7-10.3); Carbon Dioxide 23.8 mmol/L (20.0-27.5); Chloride 102 mmol/L (96-109); Glucose 111 mg/dL (70-110); Non-African American GFR(CKD) 26.7 (60.0-200.0); Sodium 135 mmol/L (135-145); Total Bilirubin <0.15 mg/dL (0.30-1.20); Total Protein 5.6 g/dL (6.2-8.2)
--- NOTE | 2021-12-08 10:08 | P.DS ---
Providers Date of admission: 12/07/2021 Expected date of discharge: 12/08/21 Attending physician: Hao Parker Consults: 12/07/21 08:46 Consult Physician Routine Consulting Provider: Catherine Roberts Consult Reason/Comments: Postoperative medical management Do you want consulting provider notified?: Yes Primary care physician: Jamarcus Quiroz Balboa - Discharge Diagnosis(es) (1) Status post total hip replacement, left Current Visit: Yes Status: Acute (2) Left hip pain Current Visit: Yes Status: Acute (3) Osteoarthritis of left hip Current Visit: Yes Status: Acute (4) Hyperlipidemia Current Visit: Yes Status: Acute (5) Hypertension Current Visit: Yes Status: Acute Hospital Course: This is a pleasant 76-year-old female who presented with severe left hip osteoarthritis who failed outpatient conservative therapy. She was admitted for a left hip total arthroplasty with direct anterior approach. The patient tolerated the procedure well and did well postoperatively. Her left hip pain has been well-controlled. She has had some unsteadiness with her gait but has been utilizing a walker to aid in ambulation. She feels like she is ambulating better with the assistance of a walker. She states her daughter will be with her at all times at home. She feels she is ready for discharge today. Condition on day of discharge stable. Patient will be discharged home. Patient was cleared preoperatively for surgery by Dr. Roberts. Patient currently denies any nausea, vomiting, fever, or chills. Patient is eating and voiding freely without difficulty. Patient may shower Optifoam dressing intact. Patient may remove Optifoam dressing in 7 days and shower without a dressing at that time. Patient should refrain from driving until at least after their first follow-up appointment in the office. She may apply ice for comfort support over the left hip as needed. We did discuss she may continue to weight-bear as tolerated on the left lower extremity with the assistance of a walker. MAPS was reviewed yesterday. An "Opiod Start Talking" Form has been signed and placed in the patient's chart. A prescription has been written for [place] 5 mg/25 mg 1-2 tabs every 6 hours as needed for pain, dispense #32. Patient given prescription for aspirin 325 mg 1 tab by mouth twice a day. Patient should take this medication until completion. Patient is also given prescriptions for Senokot-S and Zofran. Medications were sent to the [facility] pharmacy located within [facility] per the request of the patient. Patient will continue with her home medications. Patient's other medical diagnoses include hyperlipidemia and hypertension. Physical Exam Total Hip Arthroplasty: Status post surgical day number 1 Patient is examined sitting bedside upright in a chair Patient is awake and alert, and oriented 3 Vital signs stable Good chest excursion with deep inspiration and expiration No signs or symptoms of DVT; no calf pain; calves soft nontender Lower extremity cuffs not currently in place bilaterally Dressing of the left hip is clean, dry, and intact; no erythema, purulence, or signs of infection No pain with palpation over the left hip Full range of motion of ankles bilaterally Dorsiflexion, plantarflexion, and extensor hallucis longus positive sustained bilaterally Neurovascularly intact bilateral lower extremities Capillary refill less than 2 seconds bilateral lower extremities Procedures: Left total hip arthroplasty with direct anterior approach Patient Condition at Discharge: Stable Plan - Discharge Summary Discharge Rx Participant: No New Discharge Prescriptions: New HYDROcodone/APAP 5-325MG [[place] 5] 1 - 2 each PO Q6HR PRN #32 tab PRN Reason: Pain Sennosides-Docusate Sodium [Senokot-S] 1 tab PO BID PRN #60 tablet PRN Reason: Constipation Aspirin 325 mg PO BID #60 tab Ondansetron [Zofran] 4 mg PO Q6HR PRN #30 tab PRN Reason: Nausea No Action clonazePAM [KlonoPIN] 1 mg PO BID Sertraline [Zoloft] 200 mg PO HS Cholecalciferol [Vitamin D3 (25 Mcg = 1000 Iu)] 25 mcg PO DAILY Metoprolol Tartrate [Lopressor] 25 mg PO HS Metoprolol Tartrate [Lopressor] 50 mg PO QAM Aspirin EC [Ecotrin Low Dose] 81 mg PO DAILY Furosemide [Lasix] 40 mg PO DAILY Rosuvastatin Calcium [Crestor] 10 mg PO DAILY Losartan [Cozaar] 50 mg PO DAILY Clopidogrel [Plavix] 75 mg PO DAILY Discharge Medication List Cholecalciferol [Vitamin D3 (25 Mcg = 1000 Iu)] 25 mcg PO DAILY 03/15/21 [History] Rosuvastatin Calcium [Crestor] 10 mg PO DAILY 03/15/21 [History] Sertraline [Zoloft] 200 mg PO HS 03/15/21 [History] clonazePAM [KlonoPIN] 1 mg PO BID 03/15/21 [History] Losartan [Cozaar] 50 mg PO DAILY 04/05/21 [History] Metoprolol Tartrate [Lopressor] 25 mg PO HS 04/05/21 [History] Metoprolol Tartrate [Lopressor] 50 mg PO QAM 04/05/21 [History] Aspirin EC [Ecotrin Low Dose] 81 mg PO DAILY 11/30/21 [History] Clopidogrel [Plavix] 75 mg PO DAILY 11/30/21 [History] Furosemide [Lasix] 40 mg PO DAILY 11/30/21 [History] Aspirin 325 mg PO BID #60 tab 12/07/21 [Rx] HYDROcodone/APAP 5-325MG [[place] 5] 1 - 2 each PO Q6HR PRN #32 tab 12/07/21 [Rx] Ondansetron [Zofran] 4 mg PO Q6HR PRN #30 tab 12/07/21 [Rx] Sennosides-Docusate Sodium [Senokot-S] 1 tab PO BID PRN #60 tablet 12/07/21 [Rx] Follow up Appointment(s)/Referral(s): Hao Parker DO [Doctor of Osteopathic Medicine] - 2 Weeks Activity/Diet/Wound Care/Special Instructions: 1. Patient to continue to be weight-bear as tolerated on the left lower extremity with the assistance of a walker 2. Patient may apply ice over the left hip for comfort support as needed 3. Continue anticoagulation with aspirin 325 mg twice a day until completion of prescription and Plavix as previously prescribed 4. Take medications as prescribed 5. Patient may shower with dressing intact over the left hip 6. Keep dressing intact over the left hip for 7 days 7. Patient may remove dressing after 1 week and may shower without a dressing at that time if incision site remains clean and dry 8. Any questions or concerns contact [facility] at [phone] Discharge Disposition: HOME SELF-CARE
[2021-12-08] MEDS ORDERED: MULTIVITAMINS, THERA 1 EACH TAB PO SCH (12:00)
--- NOTE | 2021-12-08 14:09 | P.PN ---
Subjective Progress Note Date: 12/08/21 Katie Parry, is a 76-year-old female who was admitted to [facility] emergency room by Dr. Hao Hurtado and underwent left total hip arthroplasty today, patient was admitted to medical floor post surgery medical consultation was requested for management while hospitalized. Patient has a known history of hypertension, hyperlipidemia, depression with anxiety disorder, history of osteoarthritis, history of coronary artery disease with history of angioplasty and stent placement in March 2021, history of breast cancer, and history of thyroid disease. Patient was seen on the medical floor post surgery she is alert and oriented 3 in no distress she denies any complaints at this time there is no fever or chills no headache or dizziness no chest pain no shortness of breath no cough no nausea or vomiting no abdominal pain no diarrhea no blood in the stools no burning with urination no frequency or urgency and no hematuria. On 12/08/2021 patient was seen and examined on the medical floor she is alert and oriented 3 in no apparent distress there is no fever or chills no headache or dizziness no chest pain no shortness of breath no cough no nausea or vomiting no abdominal pain no diarrhea and no urinary symptoms. At this time hemoglobin has come down to 9.2, blood pressure is on the low side at 96/60 patient wants to go home she will be cleared for discharge to go home today she was told to stop taking losartan and stopped taking Lasix and to come to our office on Mo for reevaluation Objective - Vital Signs Vital signs: Vital Signs Temp 98.3 F 12/08/21 07:41 Pulse 73 12/08/21 08:42 Resp 13 12/08/21 07:41 BP 94/53 12/08/21 11:29 Pulse Ox 93 L 12/08/21 07:41 FiO2 Intake & Output 12/07/21 12/08/21 12/08/21 18:59 06:59 18:59 Intake Total 350 Output Total 200 Balance 150 Weight 66.2 kg Intake: IV 350 Output: Estimated Blood Loss 200 Other: Voiding Method Toilet Toilet # Voids 1 2 - Exam In general patient is alert and oriented x 3 in no distress HEENT head normocephalic and atraumatic Neck is supple no JVD no goiter no lymphadenopathy no carotid bruit Chest examination is clear to auscultation no crackles no wheezing Cardiac exam reveals regular heart sounds S1 and S2 no gallops no murmurs Abdomen is soft nontender no organomegaly with normal bowel sounds Extremity exam reveals no edema no cyanosis or clubbing Neurological examination reveals no gross focal deficits - Labs CBC & Chem 7: 12/08/21 06:15 12/08/21 06:15 Labs: Abnormal Lab Results - Last 24 Hours (Table) 12/08/21 12/08/21 Range/Units 06:15 06:15 WBC 11.20 H (4.50-10.00) X 10*3/uL RBC 2.93 L (4.10-5.20) X 10*6/uL Hgb 9.2 L (12.0-15.0) g/dL Hct 29.1 L (37.2-46.3) % MCV 99.3 H (80.0-97.0) fL MCHC 31.6 L (32.0-37.0) g/dL Immature Gran # 0.06 H (0.00-0.04) X 10*3/uL Neutrophils # 8.66 H (1.80-7.70) X 10*3/uL Monocytes # 1.22 H (0.20-1.00) X 10*3/uL Eosinophils # 0.03 L (0.04-0.35) X 10*3/uL Anion Gap 9.20 L (10.00-18.00) mmol/L BUN 36.4 H (9.0-27.0) mg/dL Creatinine 1.8 H (0.6-1.5) mg/dL Est GFR (CKD-EPI)AfAm 30.9 L (60.0-200.0) Est GFR (CKD-EPI)NonAf 26.7 L (60.0-200.0) BUN/Creatinine Ratio 20.22 H (12.00-20.00) Ratio Glucose 111 H (70-110) mg/dL Calcium 8.6 L (8.7-10.3) mg/dL Total Bilirubin <0.15 L (0.30-1.20) mg/dL Total Protein 5.6 L (6.2-8.2) g/dL Albumin 3.6 L (3.8-4.9) g/dL Assessment and Plan Plan: Left hip osteoarthritis status post total left hip arthroplasty today, pain management and DVT prophylaxis as per orthopedic protocol Underlying history of hypertension Underlying history of hyperlipidemia Underlying history of coronary artery disease with history of angioplasty and stent placement in March 2021 Underlying history of depression with anxiety disorder Underlying history of thyroid disease with check TSH Previous history of breast cancer Hypotension during hospitalization, at the time of discharge will hold losartan and hold Lasix, continue with metoprolol, follow up in the office on 12/13/2021 At this time patient was seen and examined Home medications reviewed and reordered Will check labs in a.m. and follow closely
[2021-12-08 14:16] VITALS: BP 105/53
[2021-12-08 14:38] VITALS: PULSE 54; TEMP 97.7
== END 2021-12-08 15:53 | disposition home or self-care (01) ==
LOC: OR 05:34 → 4SSUR 08:27 → OR 12-08 15:53
PROVIDERS: ATTEND Orthopaedic Surgery
DX: M16.12 Unilateral primary osteoarthritis, left hip (principal); E78.5 Hyperlipidemia, unspecified; I10 Essential (primary) hypertension; R45.0 Nervousness; Z85.3 Personal history of malignant neoplasm of breast; Z97.3 Presence of spectacles and contact lenses; Z90.49 Acquired absence of other specified parts of digestive tract; Z72.0 Tobacco use; Z79.899 Other long term (current) drug therapy
CPT/HCPCS: 97161; 97535; 97165; 88305; 80053; 84443; 85025; 88311; 73501; 27130; C1776; J1100; J0690; J2405; J2795; J1885; J1170; 86850; 86900; 86901

== ENCOUNTER → 2022-01-17 | Outpatient (CLI) | payer MEDICARE ==
--- NOTE | 2022-01-17 14:30 | MM ---
Reason for Exam: Follow-up at short interval from prior study. Last mammogram was performed 1 year(s) and 1 month(s) ago. Patient History: Menarche at age 11. First Full-Term at age 21. Postmenopausal. Breast cancer, age 63. Previous chest radiation therapy at age 63. 2008, Lumpectomy on the Left side. 11/17/2008, Malignant Core Biopsy on the left side. 11/28/2008, Bilateral Malignant Excisional Biopsy. 2008, Radiation Therapy on the left side. Mother had breast cancer, age 45. Prior Study Comparison: 11/28/2016 Bilateral Diagnostic Mammogram, [facility]. 11/30/2017 Bilateral Diagnostic Mammogram, [facility]. 12/03/2018 Bilateral Diagnostic Mammogram, [facility]. 12/05/2019 Bilateral Diagnostic Mammogram, [facility]. 12/07/2020 Bilateral Diagnostic Mammogram, [facility]. Tissue Density: There are scattered fibroglandular densities. Findings: Analyzed By CAD. Postsurgical posttreatment changes left breast. Benign bilateral vascular and secretory calcifications are again demonstrated. No significant change from prior exams. Overall Assessment: Benign, BI-RAD 2 Management: Screening Mammogram of both breasts in 1 year. 1. Patient should continue monthly self breast exams. 2. A clinical breast exam by your physician is recommended on an annual basis. 3. This exam should not preclude additional follow-up of suspicious palpable abnormalities. Electronically signed and approved by: Trudy Davila M.D. Radiologist
== END | disposition home or self-care (01) ==
LOC: RADMAMWWP 12:55
PROVIDERS: ATTEND Radiology Diagnostic Radiology
DX: R92.8 Other abnormal and inconclusive findings on diagnostic imaging of breast (principal); Z78.0 Asymptomatic menopausal state; Z80.3 Family history of malignant neoplasm of breast
CPT/HCPCS: 77066; G0279; 77062

== ENCOUNTER → 2022-04-11 | Outpatient (CLI) | payer MEDICARE ==
[2022-04-11 22:54] LABS: Anion Gap 10.3 mmol/L (10.00-18.00); BUN/Creat Ratio 20.99 Ratio (12.00-20.00); Blood Urea Nitrogen 25.4 mg/dL (9.0-27.0); Calcium 9.6 mg/dL (8.7-10.3); Non-African American GFR(CKD) 43.1 (60.0-200.0); Potassium 4.8 mmol/L (3.5-5.5)
== END | disposition home or self-care (01) ==
LOC: LABWHC1 16:26
PROVIDERS: ATTEND Nurse Practitioner
DX: I10 Essential (primary) hypertension (principal); I25.10 Atherosclerotic heart disease of native coronary artery without angina pectoris
CPT/HCPCS: 36415; 80048

== ENCOUNTER 2022-05-17 17:05 | Emergency (ER) | payer MEDICARE ==
[2022-05-17 17:17] LABS: Glucose,Whole Blood 104 mg/dL (70-110)
[2022-05-17 17:22] VITALS: TEMP 98.2
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
[2022-05-17 17:47] VITALS: RESP 18
[2022-05-17 18:00] LABS: Basophils # (A) 0.1 k/uL (0-0.2); Basophils % (A) 1 %; Eosinophils # (A) 0.1 k/uL (0-0.7); Eosinophils % (A) 1 %; HCT 36.6 % (34.0-46.0); HGB 12.1 gm/dL (11.4-16.0); Lymphocytes # (A) 1.4 k/uL (1.0-4.8); Lymphocytes % (A) 19 %; MCH 30.6 pg (25.0-35.0); MCV 92.7 fL (80.0-100.0); Mean Platelet Volume 8.9; Monocytes # (A) 0.6 k/uL (0-1.0); Monocytes % (A) 8 %; Neutrophils # (A) 5.1 k/uL (1.3-7.7); Neutrophils % (A) 69 %; Platelet Count 140 k/uL (150-450); RBC 3.95 m/uL (3.80-5.40); WBC 7.5 k/uL (3.8-10.6)
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
[2022-05-17 18:11] LABS: Partial Thromboplastin Time 20.4 sec (22.0-30.0); Prothrombin Time 10.7 sec (9.0-12.0)
[2022-05-17 18:32] LABS: Sodium 139 mmol/L (137-145)
[2022-05-17 18:35] LABS: ALT 52 U/L (4-34); AST 48 U/L (14-36); Acetaminophen <10.0 ug/mL; African American GFR (CKD) 59 (>60 ml/min/1.73 sqM); Albumin 3.4 g/dL (3.5-5.0); Alcohol <10 mg/dL; Alkaline Phosphatase 94 U/L (38-126); Anion Gap 7 mmol/L; Blood Urea Nitrogen 25 mg/dL (7-17); Calcium 8.9 mg/dL (8.4-10.2); Carbon Dioxide 26 mmol/L (22-30); Chloride 106 mmol/L (98-107); Glucose 92 mg/dL (74-99); Non-African American GFR(CKD) 51 (>60 ml/min/1.73 sqM); Potassium 4.2 mmol/L (3.5-5.1); Salicylate <1.0 mg/dL; Total Bilirubin 0.6 mg/dL (0.2-1.3); Total Protein 5.8 g/dL (6.3-8.2)
[2022-05-17 19:00] VITALS: BP 149/86; PULSE 64
[2022-05-17 19:15] LABS: Appearance,Urine Clear (Clear); Bilirubin,Urine Negative (Negative); Blood,Urine Negative (Negative); Color,Urine Yellow; Glucose,Urine (UA) Negative (Negative); Hyaline Casts,Urine 1 /lpf (0-2); Ketones,Urine Negative (Negative); Leukocyte Esterase,Urine Moderate (Negative); Mucus,Urine Rare /hpf; Nitrite,Urine Negative (Negative); Protein,Urine 1+ (Negative); RBC,Urine 1 /hpf (0-5); Squamous Epithelial Cell,Urine 6 /hpf (0-4); WBC,Urine 9 /hpf (0-5)
[2022-05-17 19:23] LABS: Amphetamine Screen,Urine Not Detected (NotDetected); Barbiturate Screen,Urine Not Detected (NotDetected); Benzodiazepines Screen,Urine Detected (NotDetected); Cocaine Screen,Urine Not Detected (NotDetected); Methadone Screen, Urine Not Detected (NotDetected); Opiate Screen,Urine Not Detected (NotDetected); Oxycodone Screen, Urine Not Detected (NotDetected); Phencyclidine Screen,Urine Not Detected (NotDetected); Tricyclic Antidepressant,Urine Not Detected (NotDetected); Urn Cannabinoid Scrn Not Detected (NotDetected)
== END 2022-05-17 19:47 | disposition left against medical advice (07) ==
LOC: EC 17:05
DX: J81.1 Chronic pulmonary edema (principal); R77.8 Other specified abnormalities of plasma proteins; E78.5 Hyperlipidemia, unspecified; F41.9 Anxiety disorder, unspecified; F17.200 Nicotine dependence, unspecified, uncomplicated; Z79.899 Other long term (current) drug therapy; V89.2XXA Person injured in unspecified motor-vehicle accident, traffic, initial encounter; Z53.29 Procedure and treatment not carried out because of patient's decision for other reasons
CPT/HCPCS: 36415; 93005; 80053; 84443; 84484; 85025; 85610; 85730; 81001; 80306; 80143; 80179; 71046; 72125; 70450; 99285; G0480; 80320

== ENCOUNTER → 2022-05-25 | Outpatient (CLI) | payer MEDICARE ==
--- NOTE | 2022-05-25 15:02 | BD ---
EXAMINATION TYPE: Axial Bone Density DATE OF EXAM: 05/25/2022 COMPARISON: NONE CLINICAL HISTORY: 76 year old Female. ICD-10 CODE: N95.1 POST ZEYAD M85.88 OTH DISRD OF BONE DENSIT Y AND STRUCT Height: 61 Weight: 141 FRAX RISK QUESTIONS: Alcohol (3 or more units per day): no Family History (Parent hip fracture): no Glucocorticoids (More than 3mos): no (Ex: prednisone, prednisolone, methylprednisolone, dexamethasone, and hydrocortisone). History of Fracture in Adulthood: no Secondary Osteoporosis: 1. Type 1 Diabetes: no 2. Hyperthyroidism: no 3. Menopause before 45: no 4. Malnutrition: no 5. Chronic liver disease: no Rheumatoid Arthritis: no Current Tobacco Use: yes RISK FACTORS HISTORY OF: Surgery to Spine/Hip(right/left)/Wrist (right/left): Left hip When: Family History of Osteoporosis: no Active: no Diet low in dairy products/other sources of calcium: yes Postmenopausal woman: yes MEDICATIONS: Additional History: EXAM MEASUREMENTS: Bone mineral densitometry was performed using the [employer] System. Bone mineral density as measured about the Lumbar spine is: ----- L1-L4(G/cm2): 1.313 T Score Values are as follows: ----- L1: -0.2 ----- L2: 0.9 ----- L3: 1.2 ----- L4: 1.9 ----- L1-L4: 1.1 Bone mineral density has: increased 3.5 % since study of: 01.24.2014 Bone mineral density about the R hip (g/cm2): 0.872 T Score values are as follows: -----R Neck: -1.2 -----R Total: -0.8 Bone mineral density has: decreased -9.5 % since study of: 01.24.2014 FRAX%s: The graph provided illustrates a 11.9% chance for a major osteoporotic fx and a 3.6% chance f or the hips probability for fx in 10 years time. IMPRESSION: Osteopenia (T Score between -2.5 and -1). There is slightly increased risk of fracture and the patient may be considered for treatment. Re-Screen 2-5 years. NOTE: T-SCORE=SD OF THE YOUNG ADULT MEAN.
== END | disposition home or self-care (01) ==
LOC: RADBDWWP 14:05
PROVIDERS: ATTEND Internal Medicine
DX: M85.851 Other specified disorders of bone density and structure, right thigh (principal); Z78.0 Asymptomatic menopausal state
CPT/HCPCS: 77080

== ENCOUNTER 2023-02-19 17:22 | Inpatient (IN) | payer MEDICARE ==
[2023-02-19 17:41] LABS: Glucose,Whole Blood 62 mg/dL (70-110)
[2023-02-19] MEDS ORDERED: SODIUM CHLORIDE 0.9% 1,000 ML IV STA ×3 (17:42→19:57)
[2023-02-19] MEDS ORDERED: DEXTROSE 50% SYRINGE 50 ML IVP STA (17:42)
--- NOTE | 2023-02-19 17:47 | ED ---
General Adult HPI - General Chief complaint: GI Bleed Stated complaint: Weakness,GI Bleed Time Seen by Provider: 02/19/23 17:24 Source: EMS Mode of arrival: EMS Limitations: altered mental status - History of Present Illness Initial comments: Dictation was produced using [employer] dictation software. please excuse any grammatical, word or spelling errors. Chief Complaint: 77-year-old female presents to the ER for GI bleed and weakness History of Present Illness: Patient is 69-year-old female she is brought in from home by EMS. Patient is accompanied by daughter who provides history of present illness. Daughter was at her house today when she she was taken to the toilet. Daughter went to wipe her bottom when she noticed there was blood. Patient apparently has been having loose melanotic stool. Last 10 days. They did follo w-up with primary care doctor however nothing was done. Patient states she feels very weak. Denies any abdominal pain or rectal pain. Daughterby red blood after wiping today. The ROS documented in this emergency department record has been reviewed and confirmed by me. Those systems with pertinent positive or negative responses have been documented in the HPI. All other systems are other negative and/or noncontributory. - Related Data Home Medications Medication Instructions Recorded Confirmed Cholecalciferol [Vitamin D3 (25 25 mcg PO DAILY 03/15/21 02/19/23 Mcg = 1000 Iu)] Rosuvastatin Calcium [Crestor] 10 mg PO DAILY 03/15/21 02/19/23 Sertraline [Zoloft] 200 mg PO HS 03/15/21 02/19/23 Metoprolol Tartrate [Lopressor] 25 mg PO HS 04/05/21 02/19/23 Metoprolol Tartrate [Lopressor] 50 mg PO DAILY 04/05/21 02/19/23 Aspirin EC [Ecotrin Low Dose] 81 mg PO DAILY 02/19/23 02/19/23 Furosemide [Lasix] 40 mg PO DAILY 02/19/23 02/19/23 Losartan [Cozaar] 50 mg PO DAILY 02/19/23 02/19/23 Spironolactone [Aldactone] 12.5 mg PO HS 02/19/23 02/19/23 Allergies Allergy/AdvReac Type Severity Reaction Status Date / Time No Known Allergies Allergy Verified 02/19/23 19:10 Review of Systems ROS Statement: Those systems with pertinent positive or pertinent negative responses have been documented in the HPI. ROS Other: All systems not noted in ROS Statement are negative. Past Medical History Past Medical History: Hyperlipidemia Additional Past Medical History / Comment(s): PAST HISTORY OF THYROID PROBLEMS, LEFT BREAST CANCER, swollen feet/takes Lasix History of Any Multi-Drug Resistant Organisms: None Reported Additional Past Surgical History / Comment(s): BILATERAL CATARACT SURGERY , LEFT BREAST LUMPECTOMY,LAPAROTOMY FOR ECTOPIC PREG, Left TIFFANY (12/07/21). Past Psychological History: Anxiety Smoking Status: Current every day smoker Past Alcohol Use History: None Reported Past Drug Use History: None Reported General Exam - General Exam Comments Initial Comments: PHYSICAL EXAM: General Impression: Alert and oriented x3, not in acute distress, lethargic HEENT: Normocephalic atraumatic, extra-ocular movements intact, pupils equal and reactive to light bilaterally, just because membranes Cardiovascular: Heart regular rate and rhythm Chest: Able to complete full sentences, no retractions, no tachypnea Abdomen: abdomen soft, non-tender, non-distended, no organomegaly Musculoskeletal: Pulses present and equal in all extremities, no peripheral edema Motor: no focal deficits noted Neurological: CN II-XII grossly intact, no focal motor or sensory deficits noted Skin: Intact with no visualized rashes Psych: Normal affect and mood Rectal exam: Melanotic stool Limitations: altered mental status Course Vital Signs 02/19/23 02/19/23 02/19/23 17:32 17:37 17:50 Pulse Rate 82 61 Respiratory 22 27 H Rate Blood Pressure 83/60 83/60 O2 Sat by Pulse 90 L 97 Oximetry 02/19/23 02/19/23 02/19/23 18:00 18:10 18:30 Pulse Rate 58 L 47 L Respiratory 16 28 H 23 Rate Blood Pressure 93/74 99/65 101/39 O2 Sat by Pulse 97 Oximetry 02/19/23 02/19/23 02/19/23 18:40 19:10 19:19 Pulse Rate 45 L 45 L Respiratory 22 21 Rate Blood Pressure 106/65 117/98 83/60 O2 Sat by Pulse 99 Oximetry 02/19/23 02/19/23 02/19/23 19:20 19:35 19:36 Pulse Rate 57 L 62 55 L Respiratory 17 20 20 Rate Blood Pressure 83/60 103/73 103/73 O2 Sat by Pulse 92 L 99 100 Oximetry 02/19/23 02/19/23 02/19/23 19:40 19:50 20:00 Pulse Rate 55 L 55 L 59 L Respiratory 22 20 20 Rate Blood Pressure 103/73 92/66 58/48 O2 Sat by Pulse 100 100 97 Oximetry - Reevaluation(s) Reevaluation #1: 02/19/23 20:23 Patient seen and evaluated initially in room #23. She was showing signs of significant GI bleed. She did have a acetone smelling breath. There is concern of acidosis. She also was breathing with Kussmaul-type respirations. Vital signs was bradycardic with hypotension. She is responding well to fluids. Labs resulted showing leukocytosis, anemia, severe acute kidney injury with anion gap acidosis, hypoglycemia, severe hepatitis. She still called blood positive. Considering patient's metabolic derangement there was concern of toxic alcohol ingestion. Her osmolality was 360. Patient's osmolar gap was positive. There is concern of toxic alcohol ingestion. She is treated with omeprazole sodium bicarbonate, hyperkalemia cocktail. Pending tox labs and thyroid labs. Given her bleeding she was treated for uremic bleeding with desmopressin. Case is discussed with nephrology who will arrange for stat hemodialysis. Case discussed with vascular surgeon who will be performing HD catheter placement. Patient be admitted to ICU. Case discussed with motel food service supervisor is willing to accept patients care. EKG Findings - EKG Comments: EKG Findings:: My EKG interpretation: Ventricular rate 53, sinus bradycardia, GA interval 213, QRS 152, QTc 599. Significant artifact. This EKG is not interpretable. Overall, this EKG is unremarkable Medical Decision Making - Medical Decision Making Was pt. sent in by a medical professional or institution (, PA, IDENTIFICATION AND RECORDS COMMANDER, urgent care, hospital, or usp...) When possible be specific @ -No Did you speak to anyone other than the patient for history (EMS, parent, family, police, friend...)? What history was obtained from this source @ -History obtained from daughter at the bedside as discussed above Did you review nursing and triage notes (agree or disagree)? Why? @ -I reviewed and agree with nursing and triage notes Were old charts reviewed (outside hosp., previous admission, EMS record, old EKG, old radiological studies, urgent care reports/EKG's, usp records)? Report findings @ -No old charts were reviewed Differential Diagnosis (chest pain, altered mental status, abdominal pain women, abdominal pain men, vaginal bleeding, musculoskeletal, weakness, fever, dyspnea, syncope, headache, dizziness, GI bleed, back pain, seizure, CVA, palpatations, mental health)? @ -Differential Weakness: Hypoglycemia, shock, sepsis, hyponatremia, anemia, infection, IN, ETOH, adverse medicine reaction, overdose, stroke, this is not meant to be an all-inclusive list. EKG interpreted by me (3pts min.). @ -As above X-rays interpreted by me (1pt min.). @ -None done CT interpreted by me (1pt min.). @ -CT of the abdomen and pelvis shows Atrophic kidney, abdominal aneurysm U/S interpreted by me (1pt. min.). @ -None done What testing was considered but not performed or refused? (CT, X-rays, U/S, labs)? Why? @ -None What meds were considered but not given or refused? Why? @ -None Did you discuss the management of the patient with other professionals (professionals i.e. , PA, IDENTIFICATION AND RECORDS COMMANDER, lab, RT, psych nurse, home health care social worker, underground production foreperson, teacher, youth liaison officer, patient case manager)? Give summary @ -As described above. Case discussed with multiple specialists Was smoking cessation discussed for >3mins.? @ -No Was critical care preformed (if so, how long)? @ -Yes, 77 minutes Were there social determinants of health that impacted care today? How? (Homelessness, low income, unemployed, alcoholism, drug addiction, transportation, low edu. Level, literacy, decrease access to med. care, group home, rehab)? @ -No Was there de-escalation of care discussed even if they declined (Discuss DNR or withdrawal of care, Hospice)? DNR status @ -No What co-morbidities impacted this encounter? (DM, HTN, Smoking, COPD, CAD, Canc er, CVA, ARF, Chemo, Hep., AIDS, mental health diagnosis, sleep apnea, morbid obesity)? @ -None Was patient admitted / discharged? Hospital course, mention meds given and route, prescriptions, significant lab abnormalities, going to OR and other pertinent info. @ -77-year-old female presents emergency department for weakness and concerns of GI bleed. Buccal presentation shows severe metabolic acidosis of unclear cause. There is concern for uremia versus toxic alcohol ingestion. She has an elevated anion gap along with the elevated osmolar gap. History with omeprazole. Patient will be getting stat dialysis. Her hyperkalemia was t reated with hyperkalemia cocktail. We'll be disposition to the ICU. Undiagnosed new problem with uncertain prognosis? @ -No Drug Therapy requiring intensive monitoring for toxicity (Heparin, Nitro, Insulin, Cardizem)? @ -No Were any procedures done? @ -No Diagnosis/symptom? Acute, or Chronic, or Acute on Chronic? Uncomplicated (without systemic symptoms) or Complicated (systemic symptoms)? @ -Metabolic derangement with severe metabolic acidosis Side effects of treatment? @ -No Exacerbation, Progression, or Severe Exacerbation? @ -No Poses a threat to life or bodily function? How? (Chest pain, USA, IN, pneumonia, PE, COPD, DKA, ARF, appy, cholecystitis, CVA, Diverticulitis, Homicidal, Suicidal, threat to staff... and all critical care pts) @ -yes - Lab Data Result diagrams: 02/19/23 19:09 02/19/23 17:43 Lab Results 02/19/23 02/19/23 02/19/23 Range/Units 17:39 17:40 17:43 WBC 17.8 H (3.8-10.6) k/uL RBC 3.00 L (3.80-5.40) m/uL Hgb 9.3 L (11.4-16.0) gm/dL Hct 29.8 L (34.0-46.0) % MCV 99.5 (80.0-100.0) fL MCH 31.0 (25.0-35.0) pg MCHC 31.1 (31.0-37.0) g/dL RDW 14.1 (11.5-15.5) % Plt Count 297 (150-450) k/uL MPV 8.1 Neutrophils % 89 % Lymphocytes % 7 % Monocytes % 2 % Eosinophils % 1 % Basophils % 0 % Neutrophils # 15.8 H (1.3-7.7) k/uL Lymphocytes # 1.3 (1.0-4.8) k/uL Monocytes # 0.4 (0-1.0) k/uL Eosinophils # 0.2 (0-0.7) k/uL Basophils # 0.0 (0-0.2) k/uL Hypochromasia Marked PT (10.0-12.5) sec INR (<1.2) APTT (22.0-30.0) sec Sample Site ABG pH (7.35-7.45) ABG pCO2 (35-45) mmHg ABG pO2 (83-108) mmHg ABG HCO3 (21-25) mmol/L ABG Total CO2 (19-24) mmol/L ABG O2 Saturation (94-97) % ABG Base Excess mmol/L Rafi Test FiO2 % Sodium (137-145) mmol/L Potassium (3.5-5.1) mmol/L Chloride (98-107) mmol/L Carbon Dioxide (22-30) mmol/L Anion Gap mmol/L BUN (7-17) mg/dL Creatinine (0.52-1.04) mg/dL Est GFR (CKD-EPI)AfAm (>60 ml/min/1.73 sqM) Est GFR (CKD-EPI)NonAf (>60 ml/min/1.73 sqM) Glucose (74-99) mg/dL POC Glucose (mg/dL) 62 L (70-110) mg/dL POC Glu Cinder [employer]ane Operator ID Heavenly Méndez Osmolality (280-301) mosm/kg Plasma Lactic Acid [place] (0.7-2.0) mmol/L Calcium (8.4-10.2) mg/dL Magnesium (1.6-2.3) mg/dL Total Bilirubin (0.2-1.3) mg/dL AST (14-36) U/L ALT (4-34) U/L Alkaline Phosphatase (38-126) U/L Total Protein (6.3-8.2) g/dL Albumin (3.5-5.0) g/dL Stool Occult Blood (Negative) Serum Alcohol mg/dL Blood Type O Positive Blood Type Recheck O Pos Bld Type Recheck Status No Antibody Screen NEGATIVE Crossmatch See Detail Spec Expiration Date 02/22/2023 - 233902/19/23 02/19/23 02/19/23 Range/Units 17:43 17:43 17:43 WBC (3.8-10.6) k/uL RBC (3.80-5.40) m/uL Hgb (11.4-16.0) gm/dL Hct (34.0-46.0) % MCV (80.0-100.0) fL MCH (25.0-35.0) pg MCHC (31.0-37.0) g/dL RDW (11.5-15.5) % Plt Count (150-450) k/uL MPV Neutrophils % % Lymphocytes % % Monocytes % % Eosinophils % % Basophils % % Neutrophils # (1.3-7.7) k/uL Lymphocytes # (1.0-4.8) k/uL Monocytes # (0-1.0) k/uL Eosinophils # (0-0.7) k/uL Basophils # (0-0.2) k/uL Hypochromasia PT 11.7 (10.0-12.5) sec INR 1.1 (<1.2) APTT 26.2 (22.0-30.0) sec Sample Site ABG pH (7.35-7.45) ABG pCO2 (35-45) mmHg ABG pO2 (83-108) mmHg ABG HCO3 (21-25) mmol/L ABG Total CO2 (19-24) mmol/L ABG O2 Saturation (94-97) % ABG Base Excess mmol/L Rafi Test FiO2 % Sodium 139 (137-145) mmol/L Potassium 7.2 H* (3.5-5.1) mmol/L Chloride 109 H (98-107) mmol/L Carbon Dioxide <5 L* (22-30) mmol/L Anion Gap mmol/L BUN 165 H* (7-17) mg/dL Creatinine 8.20 H* (0.52-1.04) mg/dL Est GFR (CKD-EPI)AfAm 5 (>60 ml/min/1.73 sqM) Est GFR (CKD-EPI)NonAf 4 (>60 ml/min/1.73 sqM) Glucose 62 L (74-99) mg/dL POC Glucose (mg/dL) (70-110) mg/dL POC Glu Cinder [employer] Crane Operator ID Osmolality (280-301) mosm/kg Plasma Lactic Acid [place] (0.7-2.0) mmol/L Calcium 8.3 L (8.4-10.2) mg/dL Magnesium 2.5 H (1.6-2.3) mg/dL Total Bilirubin 0.6 (0.2-1.3) mg/dL AST 1107 H (14-36) U/L ALT 630 H (4-34) U/L Alkaline Phosphatase 128 H (38-126) U/L Total Protein 6.0 L (6.3-8.2) g/dL Albumin 3.2 L (3.5-5.0) g/dL Stool Occult Blood Positive H (Negative) Serum Alcohol mg/dL Blood Type Blood Type Recheck Bld Type Recheck Status Antibody Screen Crossmatch Spec Expiration Date 02/19/23 02/19/23 02/19/23 Range/Units 17:43 18:54 18:55 WBC (3.8-10.6) k/uL RBC (3.80-5.40) m/uL Hgb (11.4-16.0) gm/dL Hct (34.0-46.0) % MCV (80.0-100.0) fL MCH (25.0-35.0) pg MCHC (31.0-37.0) g/dL RDW (11.5-15.5) % Plt Count (150-450) k/uL MPV Neutrophils % % Lymphocytes % % Monocytes % % Eosinophils % % Basophils % % Neutrophils # (1.3-7.7) k/uL Lymphocytes # (1.0-4.8) k/uL Monocytes # (0-1.0) k/uL Eosinophils # (0-0.7) k/uL Basophils # (0-0.2) k/uL Hypochromasia PT (10.0-12.5) sec INR (<1.2) APTT (22.0-30.0) sec Sample Site ABG pH (7.35-7.45) ABG pCO2 (35-45) mmHg ABG pO2 (83-108) mmHg ABG HCO3 (21-25) mmol/L ABG Total CO2 (19-24) mmol/L ABG O2 Saturation (94-97) % ABG Base Excess mmol/L Rafi Test FiO2 % Sodium (137-145) mmol/L Potassium (3.5-5.1) mmol/L Chloride (98-107) mmol/L Carbon Dioxide (22-30) mmol/L Anion Gap mmol/L BUN (7-17) mg/dL Creatinine (0.52-1.04) mg/dL Est GFR (CKD-EPI)AfAm (>60 ml/min/1.73 sqM) Est GFR (CKD-EPI)NonAf (>60 ml/min/1.73 sqM) Glucose (74-99) mg/dL POC Glucose (mg/dL) 156 H (70-110) mg/dL POC Glu Cinder [employer] Operator ID Heavenly Méndez Osmolality 360 H* (280-301) mosm/kg Plasma Lactic Acid [place] 0.7 (0.7-2.0) mmol/L Calcium (8.4-10.2) mg/dL Magnesium (1.6-2.3) mg/dL Total Bilirubin (0.2-1.3) mg/dL AST (14-36) U/L ALT (4-34) U/L Alkaline Phosphatase (38-126) U/L Total Protein (6.3-8.2) g/dL Albumin (3.5-5.0) g/dL Stool Occult Blood (Negative) Serum Alcohol <10 mg/dL Blood Type Blood Type Recheck Bld Type Recheck Status Antibody Screen Crossmatch Spec Expiration Date 02/19/23 02/19/23 02/19/23 Range/Units 19:09 19:15 19:41 WBC 14.7 H (3.8-10.6) k/uL RBC 2.82 L (3.80-5.40) m/uL Hgb 9.0 L (11.4-16.0) gm/dL Hct 27.6 L (34.0-46.0) % MCV 98.1 (80.0-100.0) fL MCH 32.1 (25.0-35.0) pg MCHC 32.7 (31.0-37.0) g/dL RDW 14.1 (11.5-15.5) % Plt Count 246 (150-450) k/uL MPV 8.5 Neutrophils % 91 % Lymphocytes % 6 % Monocytes % 2 % Eosinophils % 1 % Basophils % 0 % Neutrophils # 13.4 H (1.3-7.7) k/uL Lymphocytes # 0.9 L (1.0-4.8) k/uL Monocytes # 0.2 (0-1.0) k/uL Eosinophils # 0.1 (0-0.7) k/uL Basophils # 0.0 (0-0.2) k/uL Hypochromasia Marked PT (10.0-12.5) sec INR (<1.2) APTT (22.0-30.0) sec Sample Site rbrac ABG pH 7.06 L* (7.35-7.45) ABG pCO2 26 L (35-45) mmHg ABG pO2 103 (83-108) mmHg ABG HCO3 7 L* (21-25) mmol/L ABG Total CO2 8 L (19-24) mmol/L ABG O2 Saturation 97.5 H (94-97) % ABG Base Excess -23.0 mmol/L Rafi Test Yes FiO2 28 % Sodium (137-145) mmol/L Potassium (3.5-5.1) mmol/L Chloride (98-107) mmol/L Carbon Dioxide (22-30) mmol/L Anion Gap mmol/L BUN (7-17) mg/dL Creatinine (0.52-1.04) mg/dL Est GFR (CKD-EPI)AfAm (>60 ml/min/1.73 sqM) Est GFR (CKD-EPI)NonAf (>60 ml/min/1.73 sqM) Glucose (74-99) mg/dL POC Glucose (mg/dL) 136 H (70-110) mg/dL POC Glu Cinder [employer] Crane Operator IN Drew Radha, Osmolality (280-301) mosm/kg Plasma Lactic Acid [place] (0.7-2.0) mmol/L Calcium (8.4-10.2) mg/dL Magnesium (1.6-2.3) mg/dL Total Bilirubin (0.2-1.3) mg/dL AST (14-36) U/L ALT (4-34) U/L Alkaline Phosphatase (38-126) U/L Total Protein (6.3-8.2) g/dL Albumin (3.5-5.0) g/dL Stool Occult Blood (Negative) Serum Alcohol mg/dL Blood Type Blood Type Recheck Bld Type Recheck Status Antibody Screen Crossmatch Spec Expiration Date Disposition Clinical Impression: Metabolic acidosis Disposition: ADMITTED IP TO THIS [facility] Condition: Critical Referrals: Jamarcus Acosta MD [Primary Care Provider] - 1-2 days Decision Time: 19:00
[2023-02-19 17:59] LABS: Basophils % (A) 0 %; Eosinophils # (A) 0.2 k/uL (0-0.7); Eosinophils % (A) 1 %; HCT 29.8 % (34.0-46.0); HGB 9.3 gm/dL (11.4-16.0); Hypochromasia Marked; Lymphocytes # (A) 1.3 k/uL (1.0-4.8); Lymphocytes % (A) 7 %; MCHC 31.1 g/dL (31.0-37.0); MCV 99.5 fL (80.0-100.0); Mean Platelet Volume 8.1; Monocytes # (A) 0.4 k/uL (0-1.0); Monocytes % (A) 2 %; Neutrophils # (A) 15.8 k/uL (1.3-7.7); Neutrophils % (A) 89 %; Platelet Count 297 k/uL (150-450); RDW 14.1 % (11.5-15.5); WBC 17.8 k/uL (3.8-10.6)
[2023-02-19 18:10] LABS: INR 1.1 (<1.2); Partial Thromboplastin Time 26.2 sec (22.0-30.0); Prothrombin Time 11.7 sec (10.0-12.5)
[2023-02-19 18:11] LABS: ALT 630 U/L (4-34); African American GFR (CKD) 5 (>60 ml/min/1.73 sqM); Albumin 3.2 g/dL (3.5-5.0); Alkaline Phosphatase 128 U/L (38-126); Calcium 8.3 mg/dL (8.4-10.2); Chloride 109 mmol/L (98-107); Glucose 62 mg/dL (74-99); Magnesium 2.5 mg/dL (1.6-2.3); Non-African American GFR(CKD) 4 (>60 ml/min/1.73 sqM); Sodium 139 mmol/L (137-145); Total Bilirubin 0.6 mg/dL (0.2-1.3)
[2023-02-19] MEDS ORDERED: fentaNYL (PF) 50 MCG/ML 2 ML AMP IVP STA (18:26)
[2023-02-19 18:42] LABS: Blood Urea Nitrogen 165 mg/dL (7-17); Carbon Dioxide <5 mmol/L (22-30); Potassium 7.2 mmol/L (3.5-5.1)
[2023-02-19 18:43] LABS: AST 1107 U/L (14-36)
[2023-02-19] MEDS ORDERED: INSULIN REGULAR 100 UNIT/ML VIAL (IV) IV ONE (18:47)
[2023-02-19] MEDS ORDERED: SODIUM BICARB 8.4% 50 ML SYR (1 MEQ/ML) IV ONE (18:47)
[2023-02-19] MEDS ORDERED: CALCIUM GLUCONATE IN NACL 1 GM in SALINE 1 100ML.BAG IVPB ONE (18:47)
[2023-02-19] MEDS ORDERED: ALBUTEROL NEB (CONC) 2.5 MG/0.5 ML INHALATION ONE (18:47)
[2023-02-19 18:57] LABS: Glucose,Whole Blood 156 mg/dL (70-110)
[2023-02-19] MEDS ORDERED: DEXTROSE 10% IN WATER 500 ML in EMPTY BAG 1 BAG IV SCH (19:00)
[2023-02-19 19:15] LABS: Alcohol <10 mg/dL
[2023-02-19 19:17] LABS: Glucose,Whole Blood 136 mg/dL (70-110)
[2023-02-19 19:32] LABS: Basophils % (A) 0 %; Eosinophils # (A) 0.1 k/uL (0-0.7); Eosinophils % (A) 1 %; HCT 27.6 % (34.0-46.0); Hypochromasia Marked; Lymphocytes # (A) 0.9 k/uL (1.0-4.8); Lymphocytes % (A) 6 %; MCH 32.1 pg (25.0-35.0); MCHC 32.7 g/dL (31.0-37.0); MCV 98.1 fL (80.0-100.0); Mean Platelet Volume 8.5; Monocytes # (A) 0.2 k/uL (0-1.0); Monocytes % (A) 2 %; Neutrophils # (A) 13.4 k/uL (1.3-7.7); Neutrophils % (A) 91 %; Platelet Count 246 k/uL (150-450); RBC 2.82 m/uL (3.80-5.40); RDW 14.1 % (11.5-15.5); WBC 14.7 k/uL (3.8-10.6)
[2023-02-19 19:44] LABS: ABG Oxygen Saturation 97.5 % (94-97); ABG PCO2 26 mmHg (35-45); ABG PO2 103 mmHg (83-108); ABG TCO2 8 mmol/L (19-24); Allen Test Performed? Yes
[2023-02-19 19:50] LABS: ABG HCO3 7 mmol/L (21-25); ABG PH 7.06 (7.35-7.45)
[2023-02-19 19:56] LABS: ALT 649 U/L (4-34); Acetaminophen <10.0 ug/mL; African American GFR (CKD) 5 (>60 ml/min/1.73 sqM); Albumin 2.8 g/dL (3.5-5.0); Alkaline Phosphatase 113 U/L (38-126); Calcium 7.6 mg/dL (8.4-10.2); Chloride 110 mmol/L (98-107); Glucose 126 mg/dL (74-99); Non-African American GFR(CKD) 4 (>60 ml/min/1.73 sqM); Salicylate <1.0 mg/dL; Sodium 138 mmol/L (137-145); Total Bilirubin 0.5 mg/dL (0.2-1.3); Total Protein 5.4 g/dL (6.3-8.2)
[2023-02-19] MEDS: DEXTROSE 5% IN WATER 1,000 ML with SODIUM BICARB (1 MEQ/ML) 150 ML IV SCH (19:56)
[2023-02-19] MEDS ORDERED: DESMOPRESSIN ACETATE 30 MCG in SODIUM CHLORIDE 0.9% 50 ML IVPB ONE (20:04)
[2023-02-19] MEDS ORDERED: SODIUM CHLORIDE 0.9% IVPB ONE (20:08)
[2023-02-19] MEDS ORDERED: FOMEPIZOLE IVPB ONE (20:08)
[2023-02-19] MEDS ORDERED: NALOXONE 0.4 MG/ML 1 ML VIAL IV PRN (20:15)
[2023-02-19 20:25] LABS: Appearance,Urine Turbid (Clear); Bacteria,Urine Occasional /hpf; Bilirubin,Urine 1+ (Negative); Blood,Urine Small (Negative); Color,Urine Yellow; Glucose,Urine (UA) Trace (Negative); Ketones,Urine Trace (Negative); Leukocyte Esterase,Urine Trace (Negative); Mucus,Urine Rare /hpf; Nitrite,Urine Negative (Negative); PH, Urine 5.5 (5.0-8.0); Protein,Urine 3+ (Negative); RBC,Urine 5 /hpf (0-5); Specific Gravity,Urine 1.023 (1.001-1.035); Squamous Epithelial Cell,Urine 16 /hpf (0-4); Urobilinogen,Urine <2.0 mg/dL (<2.0); WBC,Urine 23 /hpf (0-5)
[2023-02-19] MEDS ORDERED: PANTOPRAZOLE 40 MG/10 ML VIAL IVP STA (20:28)
--- NOTE | 2023-02-19 20:40 | CT ---
EXAMINATION TYPE: CT abdomen pelvis wo con DATE OF EXAM: 02/19/2023 COMPARISON: None INDICATION: RECTAL BLEEDING, ABDOMINAL BLEEDING, LOW BP DLP: 525.7 mGycm, Automated exposure control for dose reduction was used. CONTRAST: mL of . Study performed without Oral Contrast TECHNIQUE: Axial images were obtained from above the diaphragm to the pubic rami in the axial plane a t 5 mm thick sections. Reconstructed images are reviewed on the computer in the coronal plane. FINDINGS: Limited CT sections are obtained the lung bases. There is some mild infiltrate in the posterior lung base. Correlate for atelectasis. Pneumonia could be considered. Follow-up can be performed.. CT ABDOMEN: Liver: Normal Spleen: Normal Pancreas: Normal Adrenal glands: The adrenal glands are normal. Gallbladder: Surgically absent Kidneys: No masses are evident. No hydronephrosis is present. There is a 2.3 cm posterior lateral r ight apical kidney. Kidney appears small compatible with atrophy. No renal stones are evident. Aorta: Vascular calcification is within the aorta. There is an abdominal aortic aneurysm with an AP dimension of 4.4 cm. This terminates bifurcation. Inferior vena cava: Normal. CT PELVIS: There is some thickening through the mid sigmoid colon. Diverticular changes are present. Some inflam matory changes not excluded. Correlate for mild diverticulitis. No abscess formation or free air is e vident. This study is without oral contrast limiting bowel evaluation. Appendix: Normal as visualized. Urinary bladder: Normal. There is some limitation due to beam hardening artifact from left hip prosth esis Genitourinary structures: Uterus appears normal. Adnexa are unremarkable Osseous structures: No suspicious lytic or sclerotic lesions. The left hip prosthesis causing beam frey rdening artifact. Degenerative facet changes are within the lumbar spine IMPRESSION: 1. Changes suggestive for mild diverticulitis sigmoid colon. 2. Abdominal aortic aneurysm of 4.4 cm. 3. Atrophic left kidney
[2023-02-19 20:49] LABS: Glucose,Whole Blood 109 mg/dL (70-110)
[2023-02-19 20:54] LABS: AST 1069 U/L (14-36); Carbon Dioxide <5 mmol/L (22-30)
[2023-02-19 20:55] LABS: Blood Urea Nitrogen 161 mg/dL (7-17)
[2023-02-19 20:57] LABS: Potassium 6.6 mmol/L (3.5-5.1)
[2023-02-19 21:04] LABS: T4, Free (Free Thyroxine) 0.67 ng/dL (0.78-2.19)
[2023-02-19] MEDS ORDERED: LIDOCAINE 1% INJ 10MG/ML (20 ML MDV) ONE (21:13)
[2023-02-19 22:36] LABS: Potassium 5.5 mmol/L (3.5-5.1)
[2023-02-20 00:14] LABS: Glucose,Whole Blood 120 mg/dL (70-110)
[2023-02-20] MEDS: NOREPINEPHRINE 4 MG in SODIUM CHLORIDE 0.9% 250 ML IV SCH ×2 (00:45→04:40)
[2023-02-20] MEDS: DEXMEDETOMIDINE/0.9% NACL(PMX) 400 MCG in EMPTY BAG 1 BAG IV SCH ×3 (01:30→08:24)
[2023-02-20 01:43] LABS: HCT 20.3 % (34.0-46.0); MCH 30.5 pg (25.0-35.0); MCHC 32.5 g/dL (31.0-37.0); MCV 93.8 fL (80.0-100.0); Mean Platelet Volume 8.4; RBC 2.16 m/uL (3.80-5.40); RDW 14.1 % (11.5-15.5); WBC 4.7 k/uL (3.8-10.6)
[2023-02-20 02:05] LABS: HGB 6.6 gm/dL (11.4-16.0); Platelet Count 120 k/uL (150-450)
[2023-02-20 02:17] LABS: Band Neutrophils % 19 %; Lymphocytes # (M) 0.56 k/uL (1.0-4.8); Monocytes # (M) 0.33 k/uL (0-1.0); Neutrophils % (M) 62 %; Nucleated Red Blood Cells 0 /100 WBC (0-0); Total Cells Counted 200
--- NOTE | 2023-02-20 02:23 | XR ---
EXAM: XR Chest, 1 View CLINICAL HISTORY: ITS.REASON XR Reason: Tube placement TECHNIQUE: Frontal view of the chest. COMPARISON: Chest 2 views dated 05/17/2022 FINDINGS: Lungs: No other focal airspace consolidation. The pulmonary vasculature demonstrates no radiographic evidence for florid CHF. Pleural space: Unremarkable. No pneumothorax. No large pleural effusion. Heart: Cardiomegaly appears less prominent from the previous examination. Mediastinum: The mediastinal contours are otherwise unremarkable. No tracheal deviation. Bones/joints: Unremarkable. Soft tissues: A rounded nodule is noted immediately lateral to the left hilum measuring 14 mm with surrounding surgical clips. This finding is new in the previous examination. Tubes, lines and devices: The endotracheal tube is proximally 4 cm from the katie. A nasogastric tube traverses the mediastinum and extends into the abdomen. The tip is not identified but is presumed in the stomach. IMPRESSION: 1. The endotracheal tube is proximally 4 cm from the katie. 2. A nasogastric tube traverses the mediastinum and extends into the abdomen. The tip is not identified but is presumed in the stomach. 3. A rounded nodule is noted immediately lateral to the left hilum measuring 14 mm with surrounding surgical clips. The location is somewhat indeterminant without lateral projection view. This finding is new in the previous examination. Please correlate with surgical history. 4. Cardiomegaly appears less prominent from the previous examination.
--- NOTE | 2023-02-20 02:34 | PCN ---
PROCEDURE NOTE PREOPERATIVE DIAGNOSIS: Acute renal failure. PROCEDURE PERFORMED: Ultrasound-guided right femoral approach, dialysis catheter placed. DESCRIPTION OF PROCEDURE: The patient was seen in the intensive care unit. Right groin was prepped, and drapes were applied in a sterile manner. 1% lidocaine was infiltrated at the groin area. Ultrasound-guided micropuncture introduced into the right femoral vein and micropuncture guidewire was passed. Then, 4-Tristanian dilator advanced on top of the guidewire. Then, we passed a regular guidewire without any resistance. Then, we passed a dilator on the top of the guidewire. Then, we placed a dialysis catheter. The guidewire was removed, flushed with heparin saline, hep-locked, and secured with 3- 0 nylon. The patient tolerated the procedure well. MMODL / IJN: [id number] /
[2023-02-20 03:12] LABS: ALT 522 U/L (4-34); African American GFR (CKD) 17 (>60 ml/min/1.73 sqM); Albumin 1.9 g/dL (3.5-5.0); Alkaline Phosphatase 107 U/L (38-126); Anion Gap 12 mmol/L; Blood Urea Nitrogen 60 mg/dL (7-17); Calcium 7.3 mg/dL (8.4-10.2); Carbon Dioxide 12 mmol/L (22-30); Chloride 111 mmol/L (98-107); Glucose 88 mg/dL (74-99); Non-African American GFR(CKD) 14 (>60 ml/min/1.73 sqM); Potassium 2.9 mmol/L (3.5-5.1); Sodium 135 mmol/L (137-145); Total Bilirubin 0.4 mg/dL (0.2-1.3); Total Protein 3.8 g/dL (6.3-8.2)
[2023-02-20 03:33] LABS: AST 964 U/L (14-36)
[2023-02-20] MEDS ORDERED: Potassium Replacement Protocol 1 EACH MISC MISCELLANE PRN (03:39)
[2023-02-20 03:55] LABS: Basophils % (A) 0 %; Eosinophils # (A) 0.1 k/uL (0-0.7); Eosinophils % (A) 1 %; HCT 26.1 % (34.0-46.0); Lymphocytes # (A) 0.4 k/uL (1.0-4.8); Lymphocytes % (A) 9 %; MCH 30.8 pg (25.0-35.0); MCHC 32.7 g/dL (31.0-37.0); Mean Platelet Volume 8.9; Monocytes # (A) 0.4 k/uL (0-1.0); Monocytes % (A) 8 %; Neutrophils # (A) 3.7 k/uL (1.3-7.7); Neutrophils % (A) 79 %; Platelet Count 123 k/uL (150-450); RBC 2.77 m/uL (3.80-5.40); RDW 13.8 % (11.5-15.5); WBC 4.6 k/uL (3.8-10.6)
[2023-02-20 03:56] LABS: HGB 8.5 gm/dL (11.4-16.0)
[2023-02-20] MEDS ORDERED: DEXTROSE 5% IN WATER 100 ML with AMIODARONE 150 MG IV ONE (04:15)
[2023-02-20] MEDS: POTASSIUM CHLORIDE 20 MEQ in WATER FOR INJECTION 1 100ML.BAG IVPB SCH ×3 (04:24→09:52)
[2023-02-20] MEDS ORDERED: AMIODARONE 360 MG in DEXTROSE 5% IN WATER 200 ML IV ONE ×2 (04:30)
--- NOTE | 2023-02-20 05:29 | ED ---
Medical Decision Making - Medical Decision Making I was called to the ICU to provide central line, as the patient was hypotensive and required multiple medications. Consent is emergent. Unable to discuss risks and benefits given patient's sedation. - Lab Data Result diagrams: 02/20/23 03:38 02/20/23 03:37 Lab Results 02/19/23 02/19/23 02/19/23 Range/Units 17:39 17:40 17:43 WBC 17.8 H (3.8-10.6) k/uL RBC 3.00 L (3.80-5.40) m/uL Hgb 9.3 L (11.4-16.0) gm/dL Hct 29.8 L (34.0-46.0) % MCV 99.5 (80.0-100.0) fL MCH 31.0 (25.0-35.0) pg MCHC 31.1 (31.0-37.0) g/dL RDW 14.1 (11.5-15.5) % Plt Count 297 (150-450) k/uL MPV 8.1 Neutrophils % 89 % Lymphocytes % 7 % Monocytes % 2 % Eosinophils % 1 % Basophils % 0 % Neutrophils # 15.8 H (1.3-7.7) k/uL Lymphocytes # 1.3 (1.0-4.8) k/uL Monocytes # 0.4 (0-1.0) k/uL Eosinophils # 0.2 (0-0.7) k/uL Basophils # 0.0 (0-0.2) k/uL Hypochromasia Marked PT (10.0-12.5) sec INR (<1.2) APTT (22.0-30.0) sec Sample Site ABG pH (7.35-7.45) ABG pCO2 (35-45) mmHg ABG pO2 (83-108) mmHg ABG HCO3 (21-25) mmol/L ABG Total CO2 (19-24) mmol/L ABG O2 Saturation (94-97) % ABG Base Excess mmol/L Rafi Test FiO2 % Sodium (137-145) mmol/L Potassium (3.5-5.1) mmol/L Chloride (98-107) mmol/L Carbon Dioxide (22-30) mmol/L Anion Gap mmol/L BUN (7-17) mg/dL Creatinine (0.52-1.04) mg/dL Est GFR (CKD-EPI)AfAm (>60 ml/min/1.73 sqM) Est GFR (CKD-EPI)NonAf (>60 ml/min/1.73 sqM) Glucose (74-99) mg/dL POC Glucose (mg/dL) 62 L (70-110) mg/dL POC Glu Cadd Drafter ID Heavenly Méndez Osmolality (280-301) mosm/kg Plasma Lactic Acid [place] (0.7-2.0) mmol/L Calcium (8.4-10.2) mg/dL Magnesium (1.6-2.3) mg/dL Total Bilirubin (0.2-1.3) mg/dL AST (14-36) U/L ALT (4-34) U/L Alkaline Phosphatase (38-126) U/L Total Protein (6.3-8.2) g/dL Albumin (3.5-5.0) g/dL TSH (0.465-4.680) mIU/L Free T4 (0.78-2.19) ng/dL Free T3 pg/mL (2.8-5.3) pg/ml Urine Color Urine Appearance (Clear) Urine pH (5.0-8.0) Ur Specific [place] (1.001-1.035) Urine Protein (Negative) Urine Glucose (UA) (Negative) Urine Ketones (Negative) Urine Blood (Negative) Urine Nitrite (Negative) Urine Bilirubin (Negative) Urine Urobilinogen (<2.0) mg/dL Ur Leukocyte Esterase (Negative) Urine RBC (0-5) /hpf Urine WBC (0-5) /hpf Ur Squamous Epith Cells (0-4) /hpf Urine Bacteria (None) /hpf Urine Mucus (None) /hpf Stool Occult Blood (Negative) Salicylates mg/dL Acetaminophen ug/mL Serum Alcohol mg/dL Acetone, Qual (Negative) Blood Type O Positive Blood Type Recheck O Pos Bld Type Recheck Status No Antibody Screen NEGATIVE Crossmatch See Detail Spec Expiration Date 02/22/2023 - 233902/19/23 02/19/23 02/19/23 Range/Units 17:43 17:43 17:43 WBC (3.8-10.6) k/uL RBC (3.80-5.40) m/uL Hgb (11.4-16.0) gm/dL Hct (34.0-46.0) % MCV (80.0-100.0) fL MCH (25.0-35.0) pg MCHC (31.0-37.0) g/dL RDW (11.5-15.5) % Plt Count (150-450) k/uL MPV Neutrophils % % Lymphocytes % % Monocytes % % Eosinophils % % Basophils % % Neutrophils # (1.3-7.7) k/uL Lymphocytes # (1.0-4.8) k/uL Monocytes # (0-1.0) k/uL Eosinophils # (0-0.7) k/uL Basophils # (0-0.2) k/uL Hypochromasia PT 11.7 (10.0-12.5) sec INR 1.1 (<1.2) APTT 26.2 (22.0-30.0) sec Sample Site ABG pH (7.35-7.45) ABG pCO2 (35-45) mmHg ABG pO2 (83-108) mmHg ABG HCO3 (21-25) mmol/L ABG Total CO2 (19-24) mmol/L ABG O2 Saturation (94-97) % ABG Base Excess mmol/L Rafi Test FiO2 % Sodium 139 (137-145) mmol/L Potassium 7.2 H* (3.5-5.1) mmol/L Chloride 109 H (98-107) mmol/L Carbon Dioxide <5 L* (22-30) mmol/L Anion Gap mmol/L BUN 165 H* (7-17) mg/dL Creatinine 8.20 H* (0.52-1.04) mg/dL Est GFR (CKD-EPI)AfAm 5 (>60 ml/min/1.73 sqM) Est GFR (CKD-EPI)NonAf 4 (>60 ml/min/1.73 sqM) Glucose 62 L (74-99) mg/dL POC Glucose (mg/dL) (70-110) mg/dL POC Glu Cadd Drafter ID Osmolality (280-301) mosm/kg Plasma Lactic Acid [place] (0.7-2.0) mmol/L Calcium 8.3 L (8.4-10.2) mg/dL Magnesium 2.5 H (1.6-2.3) mg/dL Total Bilirubin 0.6 (0.2-1.3) mg/dL AST 1107 H (14-36) U/L ALT 630 H (4-34) U/L Alkaline Phosphatase 128 H (38-126) U/L Total Protein 6.0 L (6.3-8.2) g/dL Albumin 3.2 L (3.5-5.0) g/dL TSH (0.465-4.680) mIU/L Free T4 (0.78-2.19) ng/dL Free T3 pg/mL (2.8-5.3) pg/ml Urine Color Urine Appearance (Clear) Urine pH (5.0-8.0) Ur Specific [place] (1.001-1.035) Urine Protein (Negative) Urine Glucose (UA) (Negative) Urine Ketones (Negative) Urine Blood (Negative) Urine Nitrite (Negative) Urine Bilirubin (Negative) Urine Urobilinogen (<2.0) mg/dL Ur Leukocyte Esterase (Negative) Urine RBC (0-5) /hpf Urine WBC (0-5) /hpf Ur Squamous Epith Cells (0-4) /hpf Urine Bacteria (None) /hpf Urine Mucus (None) /hpf Stool Occult Blood Positive H (Negative) Salicylates mg/dL Acetaminophen ug/mL Serum Alcohol mg/dL Acetone, Qual (Negative) Blood Type Blood Type Recheck Bld Type Recheck Status Antibody Screen Crossmatch Spec Expiration Date 02/19/23 02/19/23 02/19/23 Range/Units 17:43 18:54 18:55 WBC (3.8-10.6) k/uL RBC (3.80-5.40) m/uL Hgb (11.4-16.0) gm/dL Hct (34.0-46.0) % MCV (80.0-100.0) fL MCH (25.0-35.0) pg MCHC (31.0-37.0) g/dL RDW (11.5-15.5) % Plt Count (150-450) k/uL MPV Neutrophils % % Lymphocytes % % Monocytes % % Eosinophils % % Basophils % % Neutrophils # (1.3-7.7) k/uL Lymphocytes # (1.0-4.8) k/uL Monocytes # (0-1.0) k/uL Eosinophils # (0-0.7) k/uL Basophils # (0-0.2) k/uL Hypochromasia PT (10.0-12.5) sec INR (<1.2) APTT (22.0-30.0) sec Sample Site ABG pH (7.35-7.45) ABG pCO2 (35-45) mmHg ABG pO2 (83-108) mmHg ABG HCO3 (21-25) mmol/L ABG Total CO2 (19-24) mmol/L ABG O2 Saturation (94-97) % ABG Base Excess mmol/L Rafi Test FiO2 % Sodium (137-145) mmol/L Potassium (3.5-5.1) mmol/L Chloride (98-107) mmol/L Carbon Dioxide (22-30) mmol/L Anion Gap mmol/L BUN (7-17) mg/dL Creatinine (0.52-1.04) mg/dL Est GFR (CKD-EPI)AfAm (>60 ml/min/1.73 sqM) Est GFR (CKD-EPI)NonAf (>60 ml/min/1.73 sqM) Glucose (74-99) mg/dL POC Glucose (mg/dL) 156 H (70-110) mg/dL POC Glu [place] Drafter ID Heavenly Méndez Osmolality 360 H* (280-301) mosm/kg Plasma Lactic Acid [place] 0.7 (0.7-2.0) mmol/L Calcium (8.4-10.2) mg/dL Magnesium (1.6-2.3) mg/dL Total Bilirubin (0.2-1.3) mg/dL AST (14-36) U/L ALT (4-34) U/L Alkaline Phosphatase (38-126) U/L Total Protein (6.3-8.2) g/dL Albumin (3.5-5.0) g/dL TSH (0.465-4.680) mIU/L Free T4 (0.78-2.19) ng/dL Free T3 pg/mL (2.8-5.3) pg/ml Urine Color Urine Appearance (Clear) Urine pH (5.0-8.0) Ur Specific [place] (1.001-1.035) Urine Protein (Negative) Urine Glucose (UA) (Negative) Urine Ketones (Negative) Urine Blood (Negative) Urine Nitrite (Negative) Urine Bilirubin (Negative) Urine Urobilinogen (<2.0) mg/dL Ur Leukocyte Esterase (Negative) Urine RBC (0-5) /hpf Urine WBC (0-5) /hpf Ur Squamous Epith Cells (0-4) /hpf Urine Bacteria (None) /hpf Urine Mucus (None) /hpf Stool Occult Blood (Negative) Salicylates mg/dL Acetaminophen ug/mL Serum Alcohol <10 mg/dL Acetone, Qual (Negative) Blood Type Blood Type Recheck Bld Type Recheck Status Antibody Screen Crossmatch Spec Expiration Date 02/19/23 02/19/23 02/19/23 Range/Units 18:55 18:55 19:09 WBC 14.7 H (3.8-10.6) k/uL RBC 2.82 L (3.80-5.40) m/uL Hgb 9.0 L (11.4-16.0) gm/dL Hct 27.6 L (34.0-46.0) % MCV 98.1 (80.0-100.0) fL MCH 32.1 (25.0-35.0) pg MCHC 32.7 (31.0-37.0) g/dL RDW 14.1 (11.5-15.5) % Plt Count 246 (150-450) k/uL MPV 8.5 Neutrophils % 91 % Lymphocytes % 6 % Monocytes % 2 % Eosinophils % 1 % Basophils % 0 % Neutrophils # 13.4 H (1.3-7.7) k/uL Lymphocytes # 0.9 L (1.0-4.8) k/uL Monocytes # 0.2 (0-1.0) k/uL Eosinophils # 0.1 (0-0.7) k/uL Basophils # 0.0 (0-0.2) k/uL Hypochromasia Marked PT (10.0-12.5) sec INR (<1.2) APTT (22.0-30.0) sec Sample Site ABG pH (7.35-7.45) ABG pCO2 (35-45) mmHg ABG pO2 (83-108) mmHg ABG HCO3 (21-25) mmol/L ABG Total CO2 (19-24) mmol/L ABG O2 Saturation (94-97) % ABG Base Excess mmol/L Rafi Test FiO2 % Sodium 138 (137-145) mmol/L Potassium 6.6 H* (3.5-5.1) mmol/L Chloride 110 H (98-107) mmol/L Carbon Dioxide <5 L* (22-30) mmol/L Anion Gap mmol/L BUN 161 H* (7-17) mg/dL Creatinine 7.93 H* (0.52-1.04) mg/dL Est GFR (CKD-EPI)AfAm 5 (>60 ml/min/1.73 sqM) Est GFR (CKD-EPI)NonAf 4 (>60 ml/min/1.73 sqM) Glucose 126 H (74-99) mg/dL POC Glucose (mg/dL) (70-110) mg/dL POC Glu Cadd Drafter ID Osmolality (280-301) mosm/kg Plasma Lactic Acid [place] (0.7-2.0) mmol/L Calcium 7.6 L (8.4-10.2) mg/dL Magnesium (1.6-2.3) mg/dL Total Bilirubin 0.5 (0.2-1.3) mg/dL AST 1069 H (14-36) U/L ALT 649 H (4-34) U/L Alkaline Phosphatase 113 (38-126) U/L Total Protein 5.4 L (6.3-8.2) g/dL Albumin 2.8 L (3.5-5.0) g/dL TSH (0.465-4.680) mIU/L Free T4 (0.78-2.19) ng/dL Free T3 pg/mL (2.8-5.3) pg/ml Urine Color Urine Appearance (Clear) Urine pH (5.0-8.0) Ur Specific [place] (1.001-1.035) Urine Protein (Negative) Urine Glucose (UA) (Negative) Urine Ketones (Negative) Urine Blood (Negative) Urine Nitrite (Negative) Urine Bilirubin (Negative) Urine Urobilinogen (<2.0) mg/dL Ur Leukocyte Esterase (Negative) Urine RBC (0-5) /hpf Urine WBC (0-5) /hpf Ur Squamous Epith Cells (0-4) /hpf Urine Bacteria (None) /hpf Urine Mucus (None) /hpf Stool Occult Blood (Negative) Salicylates <1.0 mg/dL Acetaminophen <10.0 ug/mL Serum Alcohol mg/dL Acetone, Qual Positive (Negative) Blood Type Blood Type Recheck Bld Type Recheck Status Antibody Screen Crossmatch Spec Expiration Date 02/19/23 02/19/23 02/19/23 Range/Units 19:09 19:15 19:41 WBC (3.8-10.6) k/uL RBC (3.80-5.40) m/uL Hgb (11.4-16.0) gm/dL Hct (34.0-46.0) % MCV (80.0-100.0) fL MCH (25.0-35.0) pg MCHC (31.0-37.0) g/dL RDW (11.5-15.5) % Plt Count (150-450) k/uL MPV Neutrophils % % Lymphocytes % % Monocytes % % Eosinophils % % Basophils % % Neutrophils # (1.3-7.7) k/uL Lymphocytes # (1.0-4.8) k/uL Monocytes # (0-1.0) k/uL Eosinophils # (0-0.7) k/uL Basophils # (0-0.2) k/uL Hypochromasia PT (10.0-12.5) sec INR (<1.2) APTT (22.0-30.0) sec Sample Site rbrac ABG pH 7.06 L* (7.35-7.45) ABG pCO2 26 L (35-45) mmHg ABG pO2 103 (83-108) mmHg ABG HCO3 7 L* (21-25) mmol/L ABG Total CO2 8 L (19-24) mmol/L ABG O2 Saturation 97.5 H (94-97) % ABG Base Excess -23.0 mmol/L Rafi Test Yes FiO2 28 % Sodium (137-145) mmol/L Potassium (3.5-5.1) mmol/L Chloride (98-107) mmol/L Carbon Dioxide (22-30) mmol/L Anion Gap mmol/L BUN (7-17) mg/dL Creatinine (0.52-1.04) mg/dL Est GFR (CKD-EPI)AfAm (>60 ml/min/1.73 sqM) Est GFR (CKD-EPI)NonAf (>60 ml/min/1.73 sqM) Glucose (74-99) mg/dL POC Glucose (mg/dL) 136 H (70-110) mg/dL POC Glu Cadd Drafter Radha Sam T Osmolality (280-301) mosm/kg Plasma Lactic Acid [place] (0.7-2.0) mmol/L Calcium (8.4-10.2) mg/dL Magnesium (1.6-2.3) mg/dL Total Bilirubin (0.2-1.3) mg/dL AST (14-36) U/L ALT (4-34) U/L Alkaline Phosphatase (38-126) U/L Total Protein (6.3-8.2) g/dL Albumin (3.5-5.0) g/dL TSH 2.270 (0.465-4.680) mIU/L Free T4 0.67 L (0.78-2.19) ng/dL Free T3 pg/mL 7.5 H (2.8-5.3) pg/ml Urine Color Urine Appearance (Clear) Urine pH (5.0-8.0) Ur Specific [place] (1.001-1.035) Urine Protein (Negative) Urine Glucose (UA) (Negative) Urine Ketones (Negative) Urine Blood (Negative) Urine Nitrite (Negative) Urine Bilirubin (Negative) Urine Urobilinogen (<2.0) mg/dL Ur Leukocyte Esterase (Negative) Urine RBC (0-5) /hpf Urine WBC (0-5) /hpf Ur Squamous Epith Cells (0-4) /hpf Urine Bacteria (None) /hpf Urine Mucus (None) /hpf Stool Occult Blood (Negative) Salicylates mg/dL Acetaminophen ug/mL Serum Alcohol mg/dL Acetone, Qual (Negative) Blood Type Blood Type Recheck Bld Type Recheck Status Antibody Screen Crossmatch Spec Expiration Date 02/19/23 Range/Units 20:06 WBC (3.8-10.6) k/uL RBC (3.80-5.40) m/uL Hgb (11.4-16.0) gm/dL Hct (34.0-46.0) % MCV (80.0-100.0) fL MCH (25.0-35.0) pg MCHC (31.0-37.0) g/dL RDW (11.5-15.5) % Plt Count (150-450) k/uL MPV Neutrophils % % Lymphocytes % % Monocytes % % Eosinophils % % Basophils % % Neutrophils # (1.3-7.7) k/uL Lymphocytes # (1.0-4.8) k/uL Monocytes # (0-1.0) k/uL Eosinophils # (0-0.7) k/uL Basophils # (0-0.2) k/uL Hypochromasia PT (10.0-12.5) sec INR (<1.2) APTT (22.0-30.0) sec Sample Site ABG pH (7.35-7.45) ABG pCO2 (35-45) mmHg ABG pO2 (83-108) mmHg ABG HCO3 (21-25) mmol/L ABG Total CO2 (19-24) mmol/L ABG O2 Saturation (94-97) % ABG Base Excess mmol/L Rafi Test FiO2 % Sodium (137-145) mmol/L Potassium (3.5-5.1) mmol/L Chloride (98-107) mmol/L Carbon Dioxide (22-30) mmol/L Anion Gap mmol/L BUN (7-17) mg/dL Creatinine (0.52-1.04) mg/dL Est GFR (CKD-EPI)AfAm (>60 ml/min/1.73 sqM) Est GFR (CKD-EPI)NonAf (>60 ml/min/1.73 sqM) Glucose (74-99) mg/dL POC Glucose (mg/dL) (70-110) mg/dL POC Glu Cadd Drafter ID Osmolality (280-301) mosm/kg Plasma Lactic Acid [place] (0.7-2.0) mmol/L Calcium (8.4-10.2) mg/dL Magnesium (1.6-2.3) mg/dL Total Bilirubin (0.2-1.3) mg/dL AST (14-36) U/L ALT (4-34) U/L Alkaline Phosphatase (38-126) U/L Total Protein (6.3-8.2) g/dL Albumin (3.5-5.0) g/dL TSH (0.465-4.680) mIU/L Free T4 (0.78-2.19) ng/dL Free T3 pg/mL (2.8-5.3) pg/ml Urine Color Yellow Urine Appearance Turbid H (Clear) Urine pH 5.5 (5.0-8.0) Ur Specific [place] 1.023 (1.001-1.035) Urine Protein 3+ H (Negative) Urine Glucose (UA) Trace H (Negative) Urine Ketones Trace H (Negative) Urine Blood Small H (Negative) Urine Nitrite Negative (Negative) Urine Bilirubin 1+ H (Negative) Urine Urobilinogen <2.0 (<2.0) mg/dL Ur Leukocyte Esterase Trace H (Negative) Urine RBC 5 (0-5) /hpf Urine WBC 23 H (0-5) /hpf Ur Squamous Epith Cells 16 H (0-4) /hpf Urine Bacteria Occasional H (None) /hpf Urine Mucus Rare H (None) /hpf Stool Occult Blood (Negative) Salicylates mg/dL Acetaminophen ug/mL Serum Alcohol mg/dL Acetone, Qual (Negative) Blood Type Blood Type Recheck Bld Type Recheck Status Antibody Screen Crossmatch Spec Expiration Date Disposition Clinical Impression: Metabolic acidosis Disposition: ADMITTED IP TO THIS [facility] Condition: Critical Procedures - [place] Protocol (Time Out) Patient Identification (2 identifiers required): Chart, Arm Band Patient/Legal Lamination Operator has Confirmed: Identity, Procedure Site Marked: Not Applicable - Central Line Placement Right SC Consent Obtained: emergent situation Patient Placed on Monitor/Pulse Ox: Yes Prep: mask, gown, gloves Central Line Prep: Chlorhexidine scrub, sterile drapes applied Local Anesthesia Used: Lidocaine 1% Central Line Lumen Inserted: triple Central Line Position: good blood return, all ports aspirated, flushed, capped, sutured in place with 2-0 silk Dressing Applied: Tegaderm Post Procedure X-Ray: tip of catheter in good position Patient Tolerated Procedure: well, no complications Complications: none
[2023-02-20] MEDS ORDERED: levETIRAcetam IV 500 MG/5 ML VIAL IVP STA (05:30)
[2023-02-20] MEDS ORDERED: LORazepam 2 MG/ML INJ IV SCH (05:30)
[2023-02-20] MEDS ORDERED: LORazepam 2 MG/ML INJ IV PRN (05:48)
--- NOTE | 2023-02-20 06:05 | XR ---
EXAM: XR Chest, 1 View CLINICAL HISTORY: : central line placement TECHNIQUE: Frontal view of the chest. COMPARISON: February 20, 2023. FINDINGS: Lungs: There appear to be mild edema-like infiltrates in the lower lung cee, particularly on the left. Pleural space: Unremarkable. No pneumothorax or pleural fluid. Heart: Unremarkable. No cardiomegaly. Mediastinum: Unremarkable. Bones/joints: No acute findings. Tubes, lines and devices: New right subclavian central venous catheter with the tip in the lower aspect of the superior vena cava. The endotracheal tube and gastric tube are stable. IMPRESSION: New right subclavian central venous catheter with the tip in the lower aspect of the superior vena cava.
[2023-02-20 06:09] LABS: Glucose,Whole Blood 148 mg/dL (70-110)
[2023-02-20] MEDS: DEXTROSE 5% IN WATER 1,000 ML with SODIUM BICARB (1 MEQ/ML) 150 ML IV SCH ×2 (07:59→18:42)
[2023-02-20] MEDS: NOREPINEPHRINE 32 MG in SODIUM CHLORIDE 0.9% 218 ML IV SCH ×2 (08:02→17:53)
[2023-02-20] MEDS ORDERED: VASOPRESSIN 60 UNIT in SODIUM CHLORIDE 0.9% 150 ML IV SCH (09:30)
[2023-02-20 09:41] LABS: ABG Base Excess -14.5 mmol/L; ABG HCO3 14 mmol/L (21-25); ABG Oxygen Saturation 81.2 % (94-97); ABG PCO2 38 mmHg (35-45); ABG TCO2 15 mmol/L (19-24)
[2023-02-20 09:42] LABS: ABG PH 7.17 (7.35-7.45); ABG PO2 52 mmHg (83-108)
--- NOTE | 2023-02-20 09:46 | CONS ---
CONSULTATION HISTORY OF PRESENT ILLNESS: Mrs. Katie Parry is a 77-year-old lady with a known history of CAD, known occlusion of RCA chronic, PTCA and stenting of circumflex marginal that was performed in 2020. She has generally been stable, doing well. However, she presented to the emergency room on February 19, was brought in by EMS accompanied by the daughter who said that when she went to the toilet and wiped her bottom there was fresh blood and also she had a melenic stool for the last 10 days. After she came into the hospital, there was not much communication with the patient and she became very acidotic, has been intubated and is currently on a ventilator with a central line. Her creatinine was 7.3 and has been hydrated, received a unit of blood, and her creatinine has come down to 3.0. She has no urine output. She is being considered for dialysis. She has stable CAD. No active issues with CAD recently. However, she is a smoker, currently smokes on a regular basis a pack a day. She has had previous known history of hypertension and hyperlipidemia. At the time of my evaluation, she is on a ventilator deeply sedated on nearly 25 mcg of Levophed for blood pressure support. She has a central line and also a line being placed for possible dialysis. Her laboratory data suggests that she has significant hypoperfusion with liver function abnormalities, and creatinine has improved, however. Her thyroid functions are normal. AST is 964, ALT is 522, and alkaline phosphatase is 107. There is acute kidney and also some liver injury clinically. Metabolic acidosis is also another significant issue in addition to GI bleed. PAST MEDICAL HISTORY: 1. Hypertension. 2. Hyperlipidemia. 3. CAD with a known RCA occlusion and stenting of circumflex in 2020. 4. No evidence of any documented CVA. MEDICATIONS: Medications at home include Lasix 40 mg daily, aspirin 81 mg daily, Aldactone 12.5 mg daily, Crestor 10 mg daily, metoprolol tartrate 50 mg in the morning and 25 mg in the evening, and losartan 50 mg daily. ALLERGIES: None. PHYSICAL EXAMINATION: VITAL SIGNS: Blood pressure is 98/60, pulse rate is about 78 per minute. Underlying rhythm appears to be almost like an IVCD type picture with sinus mechanism and PVCs. HEENT: Limited examination was performed. Pupils react. NECK: Supple. No JVD. CARDIAC: S1, S2 heard normally. No significant murmurs. LUNGS: Reveal ventilator assisted breath sounds. ABDOMEN: Soft. EXTREMITIES: Lower extremities reveal diminished pulses. CENTRAL NERVOUS SYSTEM: Assessment was not performed. IMPRESSION: 1. Acute metabolic acidosis. 2. Acute gastrointestinal bleeding. 3. Profound hypotension with end-organ damage in the form of acute renal injury and also acute liver injury. 4. History of coronary artery disease with prior percutaneous coronary intervention. 5. Hypertension. 6. Hyperlipidemia. RECOMMENDATIONS: I would recommend that we discontinue the amiodarone drip that was started for atrial fibrillation that she went into last night. Liver functions are quite abnormal. We will therefore discontinue the amiodarone drip. Agree with hemodialysis because of acute renal injury and metabolic acidosis. I will obtain a bedside echocardiogram to assess LV function. Overall prognosis remains guarded. No other new suggestions. Thank you very much for the consult. MMODL / IJN: [id number] /
[2023-02-20] MEDS ORDERED: SODIUM CHLORIDE 0.9% 1,000 ML IV ONE ×2 (09:48→23:57)
[2023-02-20 09:55] LABS: VBG PH 7.19 (7.31-7.41)
[2023-02-20] MEDS: SODIUM BICARB 8.4% 50 ML SYR (1 MEQ/ML) IV STA ×2 (09:55→09:57)
[2023-02-20] MEDS ORDERED: propofoL 100 ML IV ONE (09:56)
[2023-02-20 10:03] LABS: ABG HCO3 21 mmol/L (21-25); ABG Oxygen Saturation 62.9 % (94-97); ABG PCO2 47 mmHg (35-45); ABG PH 7.26 (7.35-7.45); ABG TCO2 23 mmol/L (19-24)
[2023-02-20 10:04] LABS: ABG PO2 35 mmHg (83-108)
--- NOTE | 2023-02-20 10:07 | P.NPCON ---
History of Present Illness - Reason for Consult acute renal failure - History of Present Illness Reason for consultation: Acute kidney injury and electrolyte imbalance. History of present illness: Patient is a 77-year-old female seen in renal consultation for acute kidney injury and electrolyte imbalance. Patient's creatinine on admission was 8.2. Patient's baseline creatinine is in the range of 1-1.3. Patient was hyperkalemic with a potassium level of 7.2 and severe acidosis with a bicarb level of less than 5. Patient's currently intubated. She is on Levophed. She was also on amiodarone drip but is stopped due to liver failure. It is noted in the chart the patient had possible GI bleed with melanotic stool prior to admission. Patient's hemoglobin did drop to 6.6 for which she received a unit of blood. She is on bicarb drip. Oliguric. Completed hemodialysis this morning. Is also concerned that patient was having suicidal thoughts and may have attempted suicide. Salicylate alcohol levels were negative. Acetone positive. Volatile screen pending. She was on diuretics, spironolactone as well as losartan at home which are all currently held. Vital signs - hypotensive on vasopressor support. General: Resting in bed. HEENT: Intubated. LUNGS: Scattered rhonchi. HEART: Rate and Rhythm are regular. ABDOMEN: No distention. EXTREMITITES: No edema. Past Medical History Past Medical History: Hyperlipidemia, Memory Impairment Additional Past Medical History / Comment(s): PAST HISTORY OF THYROID PROBLEMS, LEFT BREAST CANCER, swollen feet/takes Lasix History of Any Multi-Drug Resistant Organisms: None Reported Past Surgical History: Heart Catheterization With Stent Additional Past Surgical History / Comment(s): BILATERAL CATARACT SURGERY , LEFT BREAST LUMPECTOMY,LAPAROTOMY FOR ECTOPIC PREG, Left TIFFANY (12/07/21). Hip replacemnt in 2021 per Lanny, jessie Date of Last Stent Placement:: roughly July, Smoking Status: Current every day smoker Medications and Allergies Home Medications Medication Instructions Recorded Confirmed Type Cholecalciferol [Vitamin D3 (25 25 mcg PO DAILY 03/15/21 02/19/23 History Mcg = 1000 Iu)] Rosuvastatin Calcium [Crestor] 10 mg PO DAILY 03/15/21 02/19/23 History Sertraline [Zoloft] 200 mg PO HS 03/15/21 02/19/23 History Metoprolol Tartrate [Lopressor] 25 mg PO HS 04/05/21 02/19/23 History Metoprolol Tartrate [Lopressor] 50 mg PO DAILY 04/05/21 02/19/23 History Aspirin EC [Ecotrin Low Dose] 81 mg PO DAILY 02/19/23 02/19/23 History Furosemide [Lasix] 40 mg PO DAILY 02/19/23 02/19/23 History Losartan [Cozaar] 50 mg PO DAILY 02/19/23 02/19/23 History Spironolactone [Aldactone] 12.5 mg PO HS 02/19/23 02/19/23 History Allergies Allergy/AdvReac Type Severity Reaction Status Date / Time No Known Allergies Allergy Verified 02/19/23 19:10 Physical Exam Vitals: Vital Signs Temp Pulse Pulse Resp BP BP Pulse Ox 02/20/23 09:30 70 28 H 97/28 100 02/20/23 09:25 68 28 H 97/28 100 02/20/23 09:20 89 28 H 84/36 99 02/20/23 09:15 66 28 H 84/36 100 02/20/23 09:10 70 28 H 66/35 99 02/20/23 09:05 70 28 H 88/34 100 02/20/23 09:00 83 28 H 100 02/20/23 08:55 66 28 H 120/40 100 02/20/23 08:50 61 28 H 120/40 100 02/20/23 08:45 73 28 H 120/40 99 02/20/23 08:40 75 28 H 106/52 99 02/20/23 08:35 64 28 H 106/52 99 02/20/23 08:30 72 28 H 85/28 100 02/20/23 08:25 74 28 H 85/28 100 02/20/23 08:20 78 28 H 73/21 100 02/20/23 08:15 80 28 H 87/38 100 02/20/23 08:10 53 L 28 H 97 02/20/23 08:06 02/20/23 08:05 80 28 H 02/20/23 08:00 97.1 F L 76 28 H 96 02/20/23 07:55 82 28 H 02/20/23 07:50 83 28 H 112/28 89 L 02/20/23 07:45 77 28 H 112/28 87 L 02/20/23 07:40 74 28 H 88/62 99 02/20/23 07:35 73 28 H 88/62 02/20/23 07:30 78 28 H 100 02/20/23 07:25 80 28 H 100/31 02/20/23 07:20 72 28 H 90/43 02/20/23 07:15 70 28 H 90/43 96 02/20/23 07:10 71 4 L 69/39 94 L 02/20/23 07:05 67 28 H 69/39 96 02/20/23 07:00 78 14 46/35 97 02/20/23 06:45 70 22 74/57 94 L 02/20/23 06:30 70 18 118/67 96 02/20/23 06:15 68 11 L 81/71 95 02/20/23 06:00 68 11 L 117/85 90 L 02/20/23 05:45 76 19 106/94 91 L 02/20/23 05:30 74 12 98/62 98 02/20/23 05:27 97.3 F L 98 28 H 103/93 96 02/20/23 05:15 76 35 H 102/86 95 02/20/23 05:00 73 8 L 82/37 82 L 02/20/23 04:45 62 117/68 02/20/23 04:30 101 H 22 90/27 99 02/20/23 04:15 137 H 16 82/62 99 02/20/23 04:00 97.2 F L 133 H 32 H 118/92 02/20/23 03:45 144 H 30 H 02/20/23 03:30 133 H 28 H 95 02/20/23 03:27 02/20/23 03:15 131 H 23 57/41 02/20/23 03:00 144 H 25 H 66/52 78 L 02/20/23 02:45 120 H 24 02/20/23 02:30 96 15 02/20/23 02:15 99 34 H 103/93 02/20/23 02:02 97.3 F L 103 H 28 H 86/70 96 02/20/23 02:00 102 H 28 H 86/70 98 02/20/23 01:45 85 28 H 133/95 02/20/23 01:42 97.2 F L 91 31 H 133/95 98 02/20/23 01:33 97.0 F L 109 H 28 H 98/80 97 02/20/23 01:30 120 H 18 80/51 73 L 02/20/23 01:27 02/20/23 01:20 02/20/23 01:15 87 21 168/127 80 L 02/20/23 01:12 02/20/23 01:00 96 35 H 168/127 02/20/23 00:50 92 16 37/23 02/20/23 00:40 96.4 F L 93 91 18 59/40 93/77 79 L 02/20/23 00:30 86 17 52/28 02/20/23 00:20 85 18 93/77 02/20/23 00:10 79 29 H 110/36 02/20/23 00:00 79 21 45/30 02/19/23 23:50 78 21 127/97 02/19/23 23:40 79 24 84/68 02/19/23 23:30 79 25 H 111/68 02/19/23 23:20 78 24 106/63 02/19/23 23:10 76 34 H 106/63 02/19/23 23:00 77 23 94/78 02/19/23 22:50 70 26 H 153/137 91 L 02/19/23 22:40 67 23 109/76 96 02/19/23 22:30 67 20 109/76 02/19/23 22:20 67 19 122/101 02/19/23 22:10 36 H 105/88 02/19/23 22:00 63 79/53 02/19/23 21:50 61 49/28 02/19/23 21:40 75 134/107 82 L 02/19/23 21:30 100/74 02/19/23 21:20 59 L 19 100/74 02/19/23 21:10 59 L 17 02/19/23 20:40 56/37 02/19/23 20:30 56/37 02/19/23 20:20 58 L 20 102/71 99 02/19/23 20:10 56 L 20 67/40 99 02/19/23 20:00 59 L 20 58/48 97 02/19/23 19:50 55 L 20 92/66 100 02/19/23 19:40 55 L 22 103/73 100 02/19/23 19:36 55 L 20 103/73 100 02/19/23 19:35 62 20 103/73 99 02/19/23 19:20 57 L 17 83/60 92 L 02/19/23 19:19 83/60 02/19/23 19:15 34/23 02/19/23 19:10 45 L 21 117/98 99 02/19/23 18:40 45 L 22 106/65 02/19/23 18:30 47 L 23 101/39 02/19/23 18:10 58 L 28 H 99/65 97 02/19/23 18:00 16 93/74 02/19/23 17:50 61 27 H 83/60 02/19/23 17:37 97 02/19/23 17:32 82 22 83/60 90 L FiO2 02/20/23 09:30 02/20/23 09:25 02/20/23 09:20 02/20/23 09:15 02/20/23 09:10 02/20/23 09:05 02/20/23 09:00 02/20/23 08:55 02/20/23 08:50 02/20/23 08:45 02/20/23 08:40 02/20/23 08:35 02/20/23 08:30 02/20/23 08:25 02/20/23 08:20 02/20/23 08:15 02/20/23 08:10 02/20/23 08:06 100 02/20/23 08:05 02/20/23 08:00 02/20/23 07:55 02/20/23 07:50 02/20/23 07:45 02/20/23 07:40 02/20/23 07:35 02/20/23 07:30 02/20/23 07:25 02/20/23 07:20 02/20/23 07:15 02/20/23 07:10 02/20/23 07:05 02/20/23 07:00 02/20/23 06:45 02/20/23 06:30 02/20/23 06:15 02/20/23 06:00 02/20/23 05:45 02/20/23 05:30 02/20/23 05:27 02/20/23 05:15 02/20/23 05:00 02/20/23 04:45 02/20/23 04:30 02/20/23 04:15 02/20/23 04:00 100 02/20/23 03:45 02/20/23 03:30 02/20/23 03:27 02/20/23 03:15 02/20/23 03:00 02/20/23 02:45 02/20/23 02:30 02/20/23 02:15 02/20/23 02:02 02/20/23 02:00 02/20/23 01:45 02/20/23 01:42 02/20/23 01:33 02/20/23 01:30 02/20/23 01:27 02/20/23 01:20 1.0 02/20/23 01:15 02/20/23 01:12 02/20/23 01:00 02/20/23 00:50 02/20/23 00:40 02/20/23 00:30 02/20/23 00:20 02/20/23 00:10 02/20/23 00:00 02/19/23 23:50 02/19/23 23:40 02/19/23 23:30 02/19/23 23:20 02/19/23 23:10 02/19/23 23:00 02/19/23 22:50 02/19/23 22:40 02/19/23 22:30 02/19/23 22:20 02/19/23 22:10 02/19/23 22:00 02/19/23 21:50 02/19/23 21:40 02/19/23 21:30 02/19/23 21:20 02/19/23 21:10 02/19/23 20:40 02/19/23 20:30 02/19/23 20:20 02/19/23 20:10 02/19/23 20:00 02/19/23 19:50 02/19/23 19:40 02/19/23 19:36 02/19/23 19:35 02/19/23 19:20 02/19/23 19:19 02/19/23 19:15 02/19/23 19:10 02/19/23 18:40 02/19/23 18:30 02/19/23 18:10 02/19/23 18:00 02/19/23 17:50 02/19/23 17:37 02/19/23 17:32 Intake and Output 02/19/23 02/20/23 02/20/23 22:59 06:59 14:59 Intake Total 610 3536.990 314.566 Output Total 0 Balance 610 3536.990 314.566 Intake: Intake, IV Titration 610 2426.990 314.566 Amount Desmopressin Acetate 30 50 mcg In Sodium Chloride 0. 9% 50 ml @ 200 mls/hr IVPB ONCE ONE Rx#: [id number] Dexmedetomidine/0.9% NaCl 61.372 84.566 (Pmx) 400 mcg In Empty Bag 1 bag @ 0.2 MCG/KG/HR 3.856 mls/hr IV .Q24H [facility] Rx#:[id number] Dextrose 10% in Water 500 100 100 ml In Empty Bag 1 bag @ 50 mls/hr IV .Q10H [facility] Rx #:[id number] Dextrose 5% in Water 1, 200 900 100 000 ml @ 100 mls/hr IV . [id number] [facility] with Sodium Bicarb (1 Meq/ml) 150 ml Rx#:[id number] Norepinephrine 4 mg In 195.618 Sodium Chloride 0.9% 250 ml @ 0.03 MCG/KG/MIN 8. 814 mls/hr IV .Q24H [facility] Rx#:[id number] Sodium Chloride 0.9% 1, 260 1170 130 000 ml @ 130 mls/hr IV . [id number] STA Rx#:[id number] Blood Product 310 Rc As-1 Unit 310 [id number] Hemodialysis 800 Output: Hemodialysis 0 Other: Voiding Method Indwelling Catheter Indwelling Catheter # Bowel Movements 1 1 Weight 77.111 kg 56 kg Results - Lab Results Most recent lab results ABG pH 7.17 (7.35-7.45) L* 02/20/23 09:39 ABG pCO2 38 mmHg (35-45) 02/20/23 09:39 ABG pO2 52 mmHg (83-108) L* 02/20/23 09:39 ABG HCO3 14 mmol/L (21-25) L 02/20/23 09:39 ABG O2 Saturation 81.2 % (94-97) L 02/20/23 09:39 Calcium 7.3 mg/dL (8.4-10.2) L 02/20/23 01:37 Magnesium 2.5 mg/dL (1.6-2.3) H 02/19/23 17:43 02/20/23 03:38 02/20/23 03:37 Assessment and Plan Plan: Assessment: 1. Acute kidney injury secondary to ATN secondary to hypotension. Creatinine 8.[address] showed atrophic left kidney without any hydronephrosis. 2. Chronic kidney disease stage IIIa with baseline creatinine 1-1.3. Suspect nephrosclerosis. 3. Hyperkalemia secondary to acute kidney injury, acidosis, losartan and Al dactone. Now hypokalemic postdialysis and intracellular shifting from IV bicarb. 4. Metabolic acidosis secondary to acute kidney injury and concern for toxic alcohol poisoning. Osmolar gap elevated at 23 on admission. 5. Shock liver. 6. Acute GI bleed status post blood transfusion. Also received IV DDAVP. Hemoglobin improved. Plan: Second treatment of hemodialysis tomorrow. Maintain Levophed. May need vasopressin. Maintain bicarb drip. Potassium being replaced. Poison control notified. Thank you for the consultation. I will continue to follow the patient with you during her hospital stay
[2023-02-20] MEDS ORDERED: DOBUTamine DRIP 500 MG in DEXTROSE/WATER 1 250ML.BAG IV SCH (10:15)
[2023-02-20] MEDS ORDERED: AMIODARONE 450 MG in DEXTROSE 5% IN WATER 250 ML IV SCH ×2 (10:30)
[2023-02-20 11:13] LABS: African American GFR (CKD) 18 (>60 ml/min/1.73 sqM); Anion Gap 10 mmol/L; Blood Urea Nitrogen 52 mg/dL (7-17); Carbon Dioxide 17 mmol/L (22-30); Chloride 111 mmol/L (98-107); Glucose 146 mg/dL (74-99); Magnesium 1.4 mg/dL (1.6-2.3); Non-African American GFR(CKD) 15 (>60 ml/min/1.73 sqM); Sodium 138 mmol/L (137-145)
[2023-02-20 11:14] LABS: Calcium 6.3 mg/dL (8.4-10.2)
[2023-02-20] MEDS: PIPERACILLIN-TAZOBACTAM 3.375 GM in SODIUM CHLORIDE 0.9% 100 ML IVPB SCH ×2 (11:16→20:58)
[2023-02-20 11:19] LABS: Hepatitis B Surface AB- Quant 3.5 mIU/mL
[2023-02-20 11:21] LABS: Hepatitis B Surface Antigen Nonreactive
[2023-02-20 11:45] LABS: Glucose,Whole Blood 151 mg/dL (70-110)
--- NOTE | 2023-02-20 12:20 | EEG ---
ELECTROENCEPHALOGRAM REPORT PREAMBLE: This is a 77-year-old female, who came with weakness and GI bleed. The patient has to have emergent dialysis. The patient received Keppra after she was having some seizure- like activity. EEG FINDINGS: This is a 21-channel digital EEG recorded with video component, utilizing 10/20 international system with referential and bipolar montages. Background consists of poorly developed and regulated, diffuse low-amplitude delta seen in bihemispheric region. Occasional 4 Hz theta activity was seen sporadically. Different stages of sleep were not seen. Photic driving response was not seen. No focal or generalized epileptiform activity was seen. IMPRESSION: This is an abnormal EEG due to background slowing of severe degree. This is suggestive of generalized cerebral dysfunction as can be seen with toxic metabolic encephalopathy or related to diffuse structural brain abnormality. Clinical correlation and followup EEG recommended as clinically indicated. No epileptiform activity was seen. No seizures recorded. MMODL / IJN: [id number] / [facility]
[2023-02-20] MEDS ORDERED: CALCIUM GLUCONATE IN NACL 2 GM in SALINE 1 100ML.BAG IVPB ONE (12:30)
[2023-02-20] MEDS: MAGNESIUM SULFATE-D5W PMX 1 GM in DEXTROSE/WATER 1 100ML.BAG IVPB SCH ×2 (12:35→13:48)
--- NOTE | 2023-02-20 12:59 | P.GSCN ---
History of Present Illness History of present illness: 77-year-old white female patient was seen intensive care unit I was consulted for placement of urgent dialysis catheter. And came with the potassium 7.2 and creatinine was 82 patient has some history of GI bleed. Patient is confused but responsive to painful stimuli Neck examination neck is supple no bruit appreciated Chest pulses second sound present for chronic crackles the lung bases Abdomen is soft nontender Vascular bruit [place] a pulses are present femorals are 1+ Plan is placement of a dialysis catheter risk and complication discussed Past Medical History Past Medical History: Hyperlipidemia, Memory Impairment Additional Past Medical History / Comment(s): PAST HISTORY OF THYROID PROBLEMS, LEFT BREAST CANCER, swollen feet/takes Lasix History of Any Multi-Drug Resistant Organisms: None Reported Past Surgical History: Heart Catheterization With Stent Additional Past Surgical History / Comment(s): BILATERAL CATARACT SURGERY , LEFT BREAST LUMPECTOMY,LAPAROTOMY FOR ECTOPIC PREG, Left TIFFANY (12/07/21). Hip replacemnt in 2021 per Lannyjessie Date of Last Stent Placement:: roughly July, Smoking Status: Current every day smoker Medications and Allergies Home Medications Medication Instructions Recorded Confirmed Type Cholecalciferol [Vitamin D3 (25 25 mcg PO DAILY 03/15/21 02/19/23 History Mcg = 1000 Iu)] Rosuvastatin Calcium [Crestor] 10 mg PO DAILY 03/15/21 02/19/23 History Sertraline [Zoloft] 200 mg PO HS 03/15/21 02/19/23 History Metoprolol Tartrate [Lopressor] 25 mg PO HS 04/05/21 02/19/23 History Metoprolol Tartrate [Lopressor] 50 mg PO DAILY 04/05/21 02/19/23 History Aspirin EC [Ecotrin Low Dose] 81 mg PO DAILY 02/19/23 02/19/23 History Furosemide [Lasix] 40 mg PO DAILY 02/19/23 02/19/23 History Losartan [Cozaar] 50 mg PO DAILY 02/19/23 02/19/23 History Spironolactone [Aldactone] 12.5 mg PO HS 02/19/23 02/19/23 History Allergies Allergy/AdvReac Type Severity Reaction Status Date / Time No Known Allergies Allergy Verified 02/19/23 19:10 Surgical - Exam Vital Signs Pulse Resp BP Pulse Ox 82 22 83/60 90 L 02/19/23 17:32 02/19/23 17:32 02/19/23 17:32 02/19/23 17:32 Results - Labs 02/20/23 03:38 02/20/23 10:55 Abnormal Lab Results - Last 24 Hours (Table) 02/19/23 02/19/23 02/19/23 Range/Units 17:39 17:40 17:43 WBC 17.8 H (3.8-10.6) k/uL RBC 3.00 L (3.80-5.40) m/uL Hgb 9.3 L (11.4-16.0) gm/dL Hct 29.8 L (34.0-46.0) % Plt Count (150-450) k/uL Neutrophils # 15.8 H (1.3-7.7) k/uL Lymphocytes # (1.0-4.8) k/uL Lymphocytes # (Manual) (1.0-4.8) k/uL ABG pH (7.35-7.45) ABG pCO2 (35-45) mmHg ABG pO2 (83-108) mmHg ABG HCO3 (21-25) mmol/L ABG Total CO2 (19-24) mmol/L ABG O2 Saturation (94-97) % VBG pH (7.31-7.41) VBG HCO3 (24-28) mmol/L Sodium (137-145) mmol/L Potassium (3.5-5.1) mmol/L Chloride (98-107) mmol/L Carbon Dioxide (22-30) mmol/L BUN (7-17) mg/dL Creatinine (0.52-1.04) mg/dL Glucose (74-99) mg/dL POC Glucose (mg/dL) 62 L (70-110) mg/dL Osmolality (280-301) mosm/kg Plasma Lactic Acid [place] (0.7-2.0) mmol/L Calcium (8.4-10.2) mg/dL Magnesium (1.6-2.3) mg/dL AST (14-36) U/L ALT (4-34) U/L Alkaline Phosphatase (38-126) U/L Creatine Kinase (30-135) U/L Total Protein (6.3-8.2) g/dL Albumin (3.5-5.0) g/dL Free T4 (0.78-2.19) ng/dL Free T3 pg/mL (2.8-5.3) pg/ml Urine Appearance (Clear) Urine Protein (Negative) Urine Glucose (UA) (Negative) Urine Ketones (Negative) Urine Blood (Negative) Urine Bilirubin (Negative) Ur Leukocyte Esterase (Negative) Urine WBC (0-5) /hpf Ur Squamous Epith Cells (0-4) /hpf Urine Bacteria (None) /hpf Urine Mucus (None) /hpf Stool Occult Blood (Negative) Crossmatch See Detail 02/19/23 02/19/23 02/19/23 Range/Units 17:43 17:43 18:54 WBC (3.8-10.6) k/uL RBC (3.80-5.40) m/uL Hgb (11.4-16.0) gm/dL Hct (34.0-46.0) % Plt Count (150-450) k/uL Neutrophils # (1.3-7.7) k/uL Lymphocytes # (1.0-4.8) k/uL Lymphocytes # (Manual) (1.0-4.8) k/uL ABG pH (7.35-7.45) ABG pCO2 (35-45) mmHg ABG pO2 (83-108) mmHg ABG HCO3 (21-25) mmol/L ABG Total CO2 (19-24) mmol/L ABG O2 Saturation (94-97) % VBG pH (7.31-7.41) VBG HCO3 (24-28) mmol/L Sodium (137-145) mmol/L Potassium 7.2 H* (3.5-5.1) mmol/L Chloride 109 H (98-107) mmol/L Carbon Dioxide <5 L* (22-30) mmol/L BUN 165 H* (7-17) mg/dL Creatinine 8.20 H* (0.52-1.04) mg/dL Glucose 62 L (74-99) mg/dL POC Glucose (mg/dL) 156 H (70-110) mg/dL Osmolality (280-301) mosm/kg Plasma Lactic Acid [place] (0.7-2.0) mmol/L Calcium 8.3 L (8.4-10.2) mg/dL Magnesium 2.5 H (1.6-2.3) mg/dL AST 1107 H (14-36) U/L ALT 630 H (4-34) U/L Alkaline Phosphatase 128 H (38-126) U/L Creatine Kinase (30-135) U/L Total Protein 6.0 L (6.3-8.2) g/dL Albumin 3.2 L (3.5-5.0) g/dL Free T4 (0.78-2.19) ng/dL Free T3 pg/mL (2.8-5.3) pg/ml Urine Appearance (Clear) Urine Protein (Negative) Urine Glucose (UA) (Negative) Urine Ketones (Negative) Urine Blood (Negative) Urine Bilirubin (Negative) Ur Leukocyte Esterase (Negative) Urine WBC (0-5) /hpf Ur Squamous Epith Cells (0-4) /hpf Urine Bacteria (None) /hpf Urine Mucus (None) /hpf Stool Occult Blood Positive H (Negative) Crossmatch 02/19/23 02/19/23 02/19/23 Range/Units 18:55 18:55 19:09 WBC 14.7 H (3.8-10.6) k/uL RBC 2.82 L (3.80-5.40) m/uL Hgb 9.0 L (11.4-16.0) gm/dL Hct 27.6 L (34.0-46.0) % Plt Count (150-450) k/uL Neutrophils # 13.4 H (1.3-7.7) k/uL Lymphocytes # 0.9 L (1.0-4.8) k/uL Lymphocytes # (Manual) (1.0-4.8) k/uL ABG pH (7.35-7.45) ABG pCO2 (35-45) mmHg ABG pO2 (83-108) mmHg ABG HCO3 (21-25) mmol/L ABG Total CO2 (19-24) mmol/L ABG O2 Saturation (94-97) % VBG pH (7.31-7.41) VBG HCO3 (24-28) mmol/L Sodium (137-145) mmol/L Potassium 6.6 H* (3.5-5.1) mmol/L Chloride 110 H (98-107) mmol/L Carbon Dioxide <5 L* (22-30) mmol/L BUN 161 H* (7-17) mg/dL Creatinine 7.93 H* (0.52-1.04) mg/dL Glucose 126 H (74-99) mg/dL POC Glucose (mg/dL) (70-110) mg/dL Osmolality 360 H* (280-301) mosm/kg Plasma Lactic Acid [place] (0.7-2.0) mmol/L Calcium 7.6 L (8.4-10.2) mg/dL Magnesium (1.6-2.3) mg/dL AST 1069 H (14-36) U/L ALT 649 H (4-34) U/L Alkaline Phosphatase (38-126) U/L Creatine Kinase (30-135) U/L Total Protein 5.4 L (6.3-8.2) g/dL Albumin 2.8 L (3.5-5.0) g/dL Free T4 (0.78-2.19) ng/dL Free T3 pg/mL (2.8-5.3) pg/ml Urine Appearance (Clear) Urine Protein (Negative) Urine Glucose (UA) (Negative) Urine Ketones (Negative) Urine Blood (Negative) Urine Bilirubin (Negative) Ur Leukocyte Esterase (Negative) Urine WBC (0-5) /hpf Ur Squamous Epith Cells (0-4) /hpf Urine Bacteria (None) /hpf Urine Mucus (None) /hpf Stool Occult Blood (Negative) Crossmatch 02/19/23 02/19/23 02/19/23 Range/Units 19:09 19:15 19:41 WBC (3.8-10.6) k/uL RBC (3.80-5.40) m/uL Hgb (11.4-16.0) gm/dL Hct (34.0-46.0) % Plt Count (150-450) k/uL Neutrophils # (1.3-7.7) k/uL Lymphocytes # (1.0-4.8) k/uL Lymphocytes # (Manual) (1.0-4.8) k/uL ABG pH 7.06 L* (7.35-7.45) ABG pCO2 26 L (35-45) mmHg ABG pO2 (83-108) mmHg ABG HCO3 7 L* (21-25) mmol/L ABG Total CO2 8 L (19-24) mmol/L ABG O2 Saturation 97.5 H (94-97) % VBG pH (7.31-7.41) VBG HCO3 (24-28) mmol/L Sodium (137-145) mmol/L Potassium (3.5-5.1) mmol/L Chloride (98-107) mmol/L Carbon Dioxide (22-30) mmol/L BUN (7-17) mg/dL Creatinine (0.52-1.04) mg/dL Glucose (74-99) mg/dL POC Glucose (mg/dL) 136 H (70-110) mg/dL Osmolality (280-301) mosm/kg Plasma Lactic Acid [place] (0.7-2.0) mmol/L Calcium (8.4-10.2) mg/dL Magnesium (1.6-2.3) mg/dL AST (14-36) U/L ALT (4-34) U/L Alkaline Phosphatase (38-126) U/L Creatine Kinase (30-135) U/L Total Protein (6.3-8.2) g/dL Albumin (3.5-5.0) g/dL Free T4 0.67 L (0.78-2.19) ng/dL Free T3 pg/mL 7.5 H (2.8-5.3) pg/ml Urine Appearance (Clear) Urine Protein (Negative) Urine Glucose (UA) (Negative) Urine Ketones (Negative) Urine Blood (Negative) Urine Bilirubin (Negative) Ur Leukocyte Esterase (Negative) Urine WBC (0-5) /hpf Ur Squamous Epith Cells (0-4) /hpf Urine Bacteria (None) /hpf Urine Mucus (None) /hpf Stool Occult Blood (Negative) Crossmatch 02/19/23 02/19/23 02/20/23 Range/Units 20:06 21:40 00:12 WBC (3.8-10.6) k/uL RBC (3.80-5.40) m/uL Hgb (11.4-16.0) gm/dL Hct (34.0-46.0) % Plt Count (150-450) k/uL Neutrophils # (1.3-7.7) k/uL Lymphocytes # (1.0-4.8) k/uL Lymphocytes # (Manual) (1.0-4.8) k/uL ABG pH (7.35-7.45) ABG pCO2 (35-45) mmHg ABG pO2 (83-108) mmHg ABG HCO3 (21-25) mmol/L ABG Total CO2 (19-24) mmol/L ABG O2 Saturation (94-97) % VBG pH (7.31-7.41) VBG HCO3 (24-28) mmol/L Sodium (137-145) mmol/L Potassium 5.5 H (3.5-5.1) mmol/L Chloride (98-107) mmol/L Carbon Dioxide (22-30) mmol/L BUN (7-17) mg/dL Creatinine (0.52-1.04) mg/dL Glucose (74-99) mg/dL POC Glucose (mg/dL) 120 H (70-110) mg/dL Osmolality (280-301) mosm/kg Plasma Lactic Acid [place] (0.7-2.0) mmol/L Calcium (8.4-10.2) mg/dL Magnesium (1.6-2.3) mg/dL AST (14-36) U/L ALT (4-34) U/L Alkaline Phosphatase (38-126) U/L Creatine Kinase 310 H (30-135) U/L Total Protein (6.3-8.2) g/dL Albumin (3.5-5.0) g/dL Free T4 (0.78-2.19) ng/dL Free T3 pg/mL (2.8-5.3) pg/ml Urine Appearance Turbid H (Clear) Urine Protein 3+ H (Negative) Urine Glucose (UA) Trace H (Negative) Urine Ketones Trace H (Negative) Urine Blood Small H (Negative) Urine Bilirubin 1+ H (Negative) Ur Leukocyte Esterase Trace H (Negative) Urine WBC 23 H (0-5) /hpf Ur Squamous Epith Cells 16 H (0-4) /hpf Urine Bacteria Occasional H (None) /hpf Urine Mucus Rare H (None) /hpf Stool Occult Blood (Negative) Crossmatch 02/20/23 02/20/23 02/20/23 Range/Units 01:37 01:37 03:37 WBC (3.8-10.6) k/uL RBC 2.16 L (3.80-5.40) m/uL Hgb 6.6 L* D (11.4-16.0) gm/dL Hct 20.3 L (34.0-46.0) % Plt Count 120 L D (150-450) k/uL Neutrophils # (1.3-7.7) k/uL Lymphocytes # (1.0-4.8) k/uL Lymphocytes # (Manual) 0.56 L (1.0-4.8) k/uL ABG pH (7.35-7.45) ABG pCO2 (35-45) mmHg ABG pO2 (83-108) mmHg ABG HCO3 (21-25) mmol/L ABG Total CO2 (19-24) mmol/L ABG O2 Saturation (94-97) % VBG pH (7.31-7.41) VBG HCO3 (24-28) mmol/L Sodium 135 L (137-145) mmol/L Potassium 2.9 L 3.4 L (3.5-5.1) mmol/L Chloride 111 H (98-107) mmol/L Carbon Dioxide 12 L (22-30) mmol/L BUN 60 H (7-17) mg/dL Creatinine 3.00 H (0.52-1.04) mg/dL Glucose (74-99) mg/dL POC Glucose (mg/dL) (70-110) mg/dL Osmolality (280-301) mosm/kg Plasma Lactic Acid [place] (0.7-2.0) mmol/L Calcium 7.3 L (8.4-10.2) mg/dL Magnesium (1.6-2.3) mg/dL AST 964 H (14-36) U/L ALT 522 H (4-34) U/L Alkaline Phosphatase (38-126) U/L Creatine Kinase (30-135) U/L Total Protein 3.8 L (6.3-8.2) g/dL Albumin 1.9 L (3.5-5.0) g/dL Free T4 (0.78-2.19) ng/dL Free T3 pg/mL (2.8-5.3) pg/ml Urine Appearance (Clear) Urine Protein (Negative) Urine Glucose (UA) (Negative) Urine Ketones (Negative) Urine Blood (Negative) Urine Bilirubin (Negative) Ur Leukocyte Esterase (Negative) Urine WBC (0-5) /hpf Ur Squamous Epith Cells (0-4) /hpf Urine Bacteria (None) /hpf Urine Mucus (None) /hpf Stool Occult Blood (Negative) Crossmatch 02/20/23 02/20/23 02/20/23 Range/Units 03:38 06:08 09:39 WBC (3.8-10.6) k/uL RBC 2.77 L (3.80-5.40) m/uL Hgb 8.5 L D (11.4-16.0) gm/dL Hct 26.1 L (34.0-46.0) % Plt Count 123 L (150-450) k/uL Neutrophils # (1.3-7.7) k/uL Lymphocytes # 0.4 L (1.0-4.8) k/uL Lymphocytes # (Manual) (1.0-4.8) k/uL ABG pH 7.17 L* (7.35-7.45) ABG pCO2 (35-45) mmHg ABG pO2 52 L* (83-108) mmHg ABG HCO3 14 L (21-25) mmol/L ABG Total CO2 15 L (19-24) mmol/L ABG O2 Saturation 81.2 L (94-97) % VBG pH (7.31-7.41) VBG HCO3 (24-28) mmol/L Sodium (137-145) mmol/L Potassium (3.5-5.1) mmol/L Chloride (98-107) mmol/L Carbon Dioxide (22-30) mmol/L BUN (7-17) mg/dL Creatinine (0.52-1.04) mg/dL Glucose (74-99) mg/dL POC Glucose (mg/dL) 148 H (70-110) mg/dL Osmolality (280-301) mosm/kg Plasma Lactic Acid [place] (0.7-2.0) mmol/L Calcium (8.4-10.2) mg/dL Magnesium (1.6-2.3) mg/dL AST (14-36) U/L ALT (4-34) U/L Alkaline Phosphatase (38-126) U/L Creatine Kinase (30-135) U/L Total Protein (6.3-8.2) g/dL Albumin (3.5-5.0) g/dL Free T4 (0.78-2.19) ng/dL Free T3 pg/mL (2.8-5.3) pg/ml Urine Appearance (Clear) Urine Protein (Negative) Urine Glucose (UA) (Negative) Urine Ketones (Negative) Urine Blood (Negative) Urine Bilirubin (Negative) Ur Leukocyte Esterase (Negative) Urine WBC (0-5) /hpf Ur Squamous Epith Cells (0-4) /hpf Urine Bacteria (None) /hpf Urine Mucus (None) /hpf Stool Occult Blood (Negative) Crossmatch 02/20/23 02/20/23 02/20/23 Range/Units 09:46 10:00 10:55 WBC (3.8-10.6) k/uL RBC (3.80-5.40) m/uL Hgb (11.4-16.0) gm/dL Hct (34.0-46.0) % Plt Count (150-450) k/uL Neutrophils # (1.3-7.7) k/uL Lymphocytes # (1.0-4.8) k/uL Lymphocytes # (Manual) (1.0-4.8) k/uL ABG pH 7.26 L (7.35-7.45) ABG pCO2 47 H (35-45) mmHg ABG pO2 35 L* (83-108) mmHg ABG HCO3 (21-25) mmol/L ABG Total CO2 (19-24) mmol/L ABG O2 Saturation 62.9 L (94-97) % VBG pH 7.19 L* (7.31-7.41) VBG HCO3 15 L (24-28) mmol/L Sodium (137-145) mmol/L Potassium (3.5-5.1) mmol/L Chloride 111 H (98-107) mmol/L Carbon Dioxide 17 L (22-30) mmol/L BUN 52 H (7-17) mg/dL Creatinine 2.84 H (0.52-1.04) mg/dL Glucose 146 H (74-99) mg/dL POC Glucose (mg/dL) (70-110) mg/dL Osmolality (280-301) mosm/kg Plasma Lactic Acid [place] (0.7-2.0) mmol/L Calcium 6.3 L* (8.4-10.2) mg/dL Magnesium 1.4 L (1.6-2.3) mg/dL AST (14-36) U/L ALT (4-34) U/L Alkaline Phosphatase (38-126) U/L Creatine Kinase (30-135) U/L Total Protein (6.3-8.2) g/dL Albumin (3.5-5.0) g/dL Free T4 (0.78-2.19) ng/dL Free T3 pg/mL (2.8-5.3) pg/ml Urine Appearance (Clear) Urine Protein (Negative) Urine Glucose (UA) (Negative) Urine Ketones (Negative) Urine Blood (Negative) Urine Bilirubin (Negative) Ur Leukocyte Esterase (Negative) Urine WBC (0-5) /hpf Ur Squamous Epith Cells (0-4) /hpf Urine Bacteria (None) /hpf Urine Mucus (None) /hpf Stool Occult Blood (Negative) Crossmatch 02/20/23 02/20/23 Range/Units 10:55 11:43 WBC (3.8-10.6) k/uL RBC (3.80-5.40) m/uL Hgb (11.4-16.0) gm/dL Hct (34.0-46.0) % Plt Count (150-450) k/uL Neutrophils # (1.3-7.7) k/uL Lymphocytes # (1.0-4.8) k/uL Lymphocytes # (Manual) (1.0-4.8) k/uL ABG pH (7.35-7.45) ABG pCO2 (35-45) mmHg ABG pO2 (83-108) mmHg ABG HCO3 (21-25) mmol/L ABG Total CO2 (19-24) mmol/L ABG O2 Saturation (94-97) % VBG pH (7.31-7.41) VBG HCO3 (24-28) mmol/L Sodium (137-145) mmol/L Potassium (3.5-5.1) mmol/L Chloride (98-107) mmol/L Carbon Dioxide (22-30) mmol/L BUN (7-17) mg/dL Creatinine (0.52-1.04) mg/dL Glucose (74-99) mg/dL POC Glucose (mg/dL) 151 H (70-110) mg/dL Osmolality (280-301) mosm/kg Plasma Lactic Acid [place] 4.5 H* (0.7-2.0) mmol/L Calcium (8.4-10.2) mg/dL Magnesium (1.6-2.3) mg/dL AST (14-36) U/L ALT (4-34) U/L Alkaline Phosphatase (38-126) U/L Creatine Kinase (30-135) U/L Total Protein (6.3-8.2) g/dL Albumin (3.5-5.0) g/dL Free T4 (0.78-2.19) ng/dL Free T3 pg/mL (2.8-5.3) pg/ml Urine Appearance (Clear) Urine Protein (Negative) Urine Glucose (UA) (Negative) Urine Ketones (Negative) Urine Blood (Negative) Urine Bilirubin (Negative) Ur Leukocyte Esterase (Negative) Urine WBC (0-5) /hpf Ur Squamous Epith Cells (0-4) /hpf Urine Bacteria (None) /hpf Urine Mucus (None) /hpf Stool Occult Blood (Negative) Crossmatch Diabetes panel 02/19/23 02/19/23 02/19/23 Range/Units 17:43 18:55 21:40 Sodium 139 138 (137-145) mmol/L Potassium 7.2 H* 6.6 H* 5.5 H (3.5-5.1) mmol/L Chloride 109 H 110 H (98-107) mmol/L Carbon Dioxide <5 L* <5 L* (22-30) mmol/L BUN 165 H* 161 H* (7-17) mg/dL Creatinine 8.20 H* 7.93 H* (0.52-1.04) mg/dL Glucose 62 L 126 H (74-99) mg/dL Calcium 8.3 L 7.6 L (8.4-10.2) mg/dL AST 1107 H 1069 H (14-36) U/L ALT 630 H 649 H (4-34) U/L Alkaline Phosphatase 128 H 113 (38-126) U/L Total Protein 6.0 L 5.4 L (6.3-8.2) g/dL Albumin 3.2 L 2.8 L (3.5-5.0) g/dL 02/20/23 02/20/23 02/20/23 Range/Units 01:37 03:37 10:55 Sodium 135 L 138 (137-145) mmol/L Potassium 2.9 L 3.4 L 4.0 (3.5-5.1) mmol/L Chloride 111 H 111 H (98-107) mmol/L Carbon Dioxide 12 L 17 L (22-30) mmol/L BUN 60 H 52 H (7-17) mg/dL Creatinine 3.00 H 2.84 H (0.52-1.04) mg/dL Glucose 88 146 H (74-99) mg/dL Calcium 7.3 L 6.3 L* (8.4-10.2) mg/dL AST 964 H (14-36) U/L ALT 522 H (4-34) U/L Alkaline Phosphatase 107 (38-126) U/L Total Protein 3.8 L (6.3-8.2) g/dL Albumin 1.9 L (3.5-5.0) g/dL Thyroid panel 02/19/23 Range/Units 19:09 TSH 2.270 (0.465-4.680) mIU/L Calcium panel 02/19/23 02/19/23 02/20/23 Range/Units 17:43 18:55 01:37 Calcium 8.3 L 7.6 L 7.3 L (8.4-10.2) mg/dL Albumin 3.2 L 2.8 L 1.9 L (3.5-5.0) g/dL 02/20/23 Range/Units 10:55 Calcium 6.3 L* (8.4-10.2) mg/dL Albumin (3.5-5.0) g/dL Pituitary panel 02/19/23 02/19/23 02/19/23 Range/Units 17:43 18:55 19:09 Sodium 139 138 (137-145) mmol/L Potassium 7.2 H* 6.6 H* (3.5-5.1) mmol/L Chloride 109 H 110 H (98-107) mmol/L Carbon Dioxide <5 L* <5 L* (22-30) mmol/L BUN 165 H* 161 H* (7-17) mg/dL Creatinine 8.20 H* 7.93 H* (0.52-1.04) mg/dL Glucose 62 L 126 H (74-99) mg/dL Calcium 8.3 L 7.6 L (8.4-10.2) mg/dL TSH 2.270 (0.465-4.680) mIU/L 02/19/23 02/20/23 02/20/23 Range/Units 21:40 01:37 03:37 Sodium 135 L (137-145) mmol/L Potassium 5.5 H 2.9 L 3.4 L (3.5-5.1) mmol/L Chloride 111 H (98-107) mmol/L Carbon Dioxide 12 L (22-30) mmol/L BUN 60 H (7-17) mg/dL Creatinine 3.00 H (0.52-1.04) mg/dL Glucose 88 (74-99) mg/dL Calcium 7.3 L (8.4-10.2) mg/dL TSH (0.465-4.680) mIU/L 02/20/23 Range/Units 10:55 Sodium 138 (137-145) mmol/L Potassium 4.0 (3.5-5.1) mmol/L Chloride 111 H (98-107) mmol/L Carbon Dioxide 17 L (22-30) mmol/L BUN 52 H (7-17) mg/dL Creatinine 2.84 H (0.52-1.04) mg/dL Glucose 146 H (74-99) mg/dL Calcium 6.3 L* (8.4-10.2) mg/dL TSH (0.465-4.680) mIU/L Adrenal panel 02/19/23 02/19/23 02/19/23 Range/Units 17:43 18:55 21:40 Sodium 139 138 (137-145) mmol/L Potassium 7.2 H* 6.6 H* 5.5 H (3.5-5.1) mmol/L Chloride 109 H 110 H (98-107) mmol/L Carbon Dioxide <5 L* <5 L* (22-30) mmol/L BUN 165 H* 161 H* (7-17) mg/dL Creatinine 8.20 H* 7.93 H* (0.52-1.04) mg/dL Glucose 62 L 126 H (74-99) mg/dL Calcium 8.3 L 7.6 L (8.4-10.2) mg/dL Total Bilirubin 0.6 0.5 (0.2-1.3) mg/dL AST 1107 H 1069 H (14-36) U/L ALT 630 H 649 H (4-34) U/L Alkaline Phosphatase 128 H 113 (38-126) U/L Total Protein 6.0 L 5.4 L (6.3-8.2) g/dL Albumin 3.2 L 2.8 L (3.5-5.0) g/dL 02/20/23 02/20/23 02/20/23 Range/Units 01:37 03:37 10:55 Sodium 135 L 138 (137-145) mmol/L Potassium 2.9 L 3.4 L 4.0 (3.5-5.1) mmol/L Chloride 111 H 111 H (98-107) mmol/L Carbon Dioxide 12 L 17 L (22-30) mmol/L BUN 60 H 52 H (7-17) mg/dL Creatinine 3.00 H 2.84 H (0.52-1.04) mg/dL Glucose 88 146 H (74-99) mg/dL Calcium 7.3 L 6.3 L* (8.4-10.2) mg/dL Total Bilirubin 0.4 (0.2-1.3) mg/dL AST 964 H (14-36) U/L ALT 522 H (4-34) U/L Alkaline Phosphatase 107 (38-126) U/L Total Protein 3.8 L (6.3-8.2) g/dL Albumin 1.9 L (3.5-5.0) g/dL
[2023-02-20] MEDS: THIAMINE 500 MG in SODIUM CHLORIDE 0.9% 100 ML IVPB SCH ×2 (13:38→20:57)
--- NOTE | 2023-02-20 13:43 | P.CNPUL ---
History of Present Illness Consult date: 02/20/23 Requesting physician: Catherine Roberts Reason for consult: other (Acute hypoxic respiratory failure and hypotension) Chief complaint: Bright red blood per rectum History of present illness: This is a 77-year-old female known history of hypertension and dyslipidemia, depression, patient was brought into the ER by EMS when her daughter noted that the patient was having bloody stools when she was trying to wipe her bottom after having a bowel movement upon evaluation in the ER, patient was noted to have significant GI bleeding she also had acetone smelling breath, she was noted to have Kussmaul-type of respiration, she was also noted to be hypotensive and bradycardic. Patient was given fluid boluses and she was also given bicarb and placed on a bicarb drip. She was noted to have significant abnormalities including acute kidney injury, severe anion gap metabolic acidosis, positive ketones, slight osmolar gap was noted, nephrology was notified about this patient, and a hemodialysis catheter was placed by vascular surgery, patient had stat hemodialysis. Patient was admitted shortly after the ICU, and the case was discussed with Dr. Girard and the ER physician upon transfer to the ICU, patient was intubated shortly after she arrived to the ICU, and a right subclavian central line was placed by the ER physician shortly after she was intubated. Creatinine on admission was 8.2, patient was also noted to be hyperkalemic with potassium of 7.2 she was severely metabolically acidotic and bicarb was less than 5 patient is maximized on norepinephrine she is also maximized on vasopressin, hemoglobin dropped down to 6.6 and she received a unit of packed RBCs patient was also noted to be oliguric. Patient had a negative salicylate level positive ketones. Volatile screen is pending at home the patient was on diuretics and on losartan. These are presently on hold shortly after I evaluated the patient, multiple attempts were done to place a right femoral or a left femoral arterial line, however her pulses were not palpable the only palpable pulse was carotid pulses. I was able to access veins including femoral veins and left brachial vein, but could not access femoral arteries. Patient was profoundly hypotensive. And she was maximized on pressors. I also added dobutamine after reviewing her echocardiogram showing ejection fraction of 30% but no tamponade Review of Systems ROS unobtainable: due to endotracheal tube Past Medical History Past Medical History: Hyperlipidemia, Memory Impairment Additional Past Medical History / Comment(s): PAST HISTORY OF THYROID PROBLEMS, LEFT BREAST CANCER, swollen feet/takes Lasix History of Any Multi-Drug Resistant Organisms: None Reported Past Surgical History: Heart Catheterization With Stent Additional Past Surgical History / Comment(s): BILATERAL CATARACT SURGERY , LEFT BREAST LUMPECTOMY,LAPAROTOMY FOR ECTOPIC PREG, Left TIFFANY (12/07/21). Hip replacemnt in 2021 per Lanny, daughter Date of Last Stent Placement:: roughly July, Smoking Status: Current every day smoker Medications and Allergies Home Medications Medication Instructions Recorded Confirmed Type Cholecalciferol [Vitamin D3 (25 25 mcg PO DAILY 03/15/21 02/19/23 History Mcg = 1000 Iu)] Rosuvastatin Calcium [Crestor] 10 mg PO DAILY 03/15/21 02/19/23 History Sertraline [Zoloft] 200 mg PO HS 03/15/21 02/19/23 History Metoprolol Tartrate [Lopressor] 25 mg PO HS 04/05/21 02/19/23 History Metoprolol Tartrate [Lopressor] 50 mg PO DAILY 04/05/21 02/19/23 History Aspirin EC [Ecotrin Low Dose] 81 mg PO DAILY 02/19/23 02/19/23 History Furosemide [Lasix] 40 mg PO DAILY 02/19/23 02/19/23 History Losartan [Cozaar] 50 mg PO DAILY 02/19/23 02/19/23 History Spironolactone [Aldactone] 12.5 mg PO HS 02/19/23 02/19/23 History Allergies Allergy/AdvReac Type Severity Reaction Status Date / Time No Known Allergies Allergy Verified 02/19/23 19:10 Physical Exam Vitals: Vital Signs Temp Pulse Pulse Resp BP BP Pulse Ox 02/20/23 13:05 97 28 H 106/53 76 L 02/20/23 13:00 98 28 H 78/52 65 L 02/20/23 12:55 99 28 H 95/34 02/20/23 12:50 101 H 23 71 L 02/20/23 12:45 91 28 H 99/83 02/20/23 12:40 97 28 H 98/65 02/20/23 12:35 84 28 H 106/52 02/20/23 12:30 78 28 H 109/40 02/20/23 12:25 77 28 H 93/27 02/20/23 12:20 86 28 H 73/43 02/20/23 12:15 131 H 28 H 104/54 94 L 02/20/23 12:10 126 H 28 H 110/36 02/20/23 12:05 121 H 28 H 107/63 02/20/23 12:00 105 H 28 H 119/64 90 L 02/20/23 11:55 98 28 H 109/39 02/20/23 11:50 107 H 28 H 81/63 91 L 02/20/23 11:45 133 H 28 H 101/39 93 L 02/20/23 11:40 128 H 28 H 92/60 02/20/23 11:35 118 H 28 H 100/54 90 L 02/20/23 11:30 128 H 28 H 118/91 93 L 02/20/23 11:25 117 H 28 H 115/26 93 L 02/20/23 11:20 118 H 28 H 70/39 93 L 02/20/23 11:15 122 H 28 H 76/48 93 L 02/20/23 11:13 02/20/23 11:10 121 H 28 H 39/27 95 02/20/23 11:05 112 H 28 H 108/69 97 02/20/23 11:00 100 28 H 82/50 97 02/20/23 10:55 98 28 H 124/86 02/20/23 10:50 102 H 28 H 91/31 02/20/23 10:45 111 H 28 H 85/51 02/20/23 10:40 73 28 H 110/62 95 02/20/23 10:35 75 28 H 121/35 93 L 02/20/23 10:30 124 H 28 H 96/55 97 02/20/23 10:25 128 H 28 H 58/39 95 02/20/23 10:20 71 28 H 82/24 97 02/20/23 10:15 69 28 H 96/34 99 02/20/23 10:10 78 28 H 95/44 100 02/20/23 10:05 88 17 98/39 100 02/20/23 10:00 65 28 H 82/60 100 02/20/23 09:55 141 H 30 H 100 02/20/23 09:50 111 H 28 H 100 02/20/23 09:45 70 29 H 100 02/20/23 09:40 73 28 H 100 02/20/23 09:35 74 28 H 100 02/20/23 09:30 70 28 H 97/28 100 02/20/23 09:25 68 28 H 97/28 100 02/20/23 09:20 89 28 H 84/36 99 02/20/23 09:15 66 28 H 84/36 100 02/20/23 09:10 70 28 H 66/35 99 02/20/23 09:05 70 28 H 88/34 100 02/20/23 09:00 83 28 H 100 02/20/23 08:55 66 28 H 120/40 100 02/20/23 08:50 61 28 H 120/40 100 02/20/23 08:45 73 28 H 120/40 99 02/20/23 08:40 75 28 H 106/52 99 02/20/23 08:35 64 28 H 106/52 99 02/20/23 08:30 72 28 H 85/28 100 02/20/23 08:25 74 28 H 85/28 100 02/20/23 08:20 78 28 H 73/21 100 02/20/23 08:15 80 28 H 87/38 100 02/20/23 08:10 53 L 28 H 97 02/20/23 08:06 02/20/23 08:05 80 28 H 02/20/23 08:00 97.1 F L 76 28 H 96 02/20/23 07:55 82 28 H 02/20/23 07:50 83 28 H 112/28 89 L 02/20/23 07:45 77 28 H 112/28 87 L 02/20/23 07:40 74 28 H 88/62 99 02/20/23 07:35 73 28 H 88/62 02/20/23 07:30 78 28 H 100 02/20/23 07:25 80 28 H 100/31 02/20/23 07:20 72 28 H 90/43 02/20/23 07:15 70 28 H 90/43 96 02/20/23 07:10 71 4 L 69/39 94 L 02/20/23 07:05 67 28 H 69/39 96 02/20/23 07:00 78 14 46/35 97 02/20/23 06:45 70 22 74/57 94 L 02/20/23 06:30 70 18 118/67 96 02/20/23 06:15 68 11 L 81/71 95 02/20/23 06:00 68 11 L 117/85 90 L 02/20/23 05:45 76 19 106/94 91 L 02/20/23 05:30 74 12 98/62 98 02/20/23 05:27 97.3 F L 98 28 H 103/93 96 02/20/23 05:15 76 35 H 102/86 95 02/20/23 05:00 73 8 L 82/37 82 L 02/20/23 04:45 62 117/68 02/20/23 04:30 101 H 22 90/27 99 02/20/23 04:15 137 H 16 82/62 99 02/20/23 04:00 97.2 F L 133 H 32 H 118/92 02/20/23 03:45 144 H 30 H 02/20/23 03:30 133 H 28 H 95 02/20/23 03:27 02/20/23 03:15 131 H 23 57/41 02/20/23 03:00 144 H 25 H 66/52 78 L 02/20/23 02:45 120 H 24 02/20/23 02:30 96 15 02/20/23 02:15 99 34 H 103/93 02/20/23 02:02 97.3 F L 103 H 28 H 86/70 96 02/20/23 02:00 102 H 28 H 86/70 98 02/20/23 01:45 85 28 H 133/95 02/20/23 01:42 97.2 F L 91 31 H 133/95 98 02/20/23 01:33 97.0 F L 109 H 28 H 98/80 97 02/20/23 01:30 120 H 18 80/51 73 L 02/20/23 01:27 02/20/23 01:20 02/20/23 01:15 87 21 168/127 80 L 02/20/23 01:12 02/20/23 01:00 96 35 H 168/127 02/20/23 00:50 92 16 37/23 02/20/23 00:40 96.4 F L 93 91 18 59/40 93/77 79 L 02/20/23 00:30 86 17 52/28 02/20/23 00:20 85 18 93/77 02/20/23 00:10 79 29 H 110/36 02/20/23 00:00 79 21 45/30 02/19/23 23:50 78 21 127/97 02/19/23 23:40 79 24 84/68 02/19/23 23:30 79 25 H 111/68 02/19/23 23:20 78 24 106/63 02/19/23 23:10 76 34 H 106/63 02/19/23 23:00 77 23 94/78 02/19/23 22:50 70 26 H 153/137 91 L 02/19/23 22:40 67 23 109/76 96 02/19/23 22:30 67 20 109/76 02/19/23 22:20 67 19 122/101 02/19/23 22:10 36 H 105/88 02/19/23 22:00 63 79/53 02/19/23 21:50 61 49/28 02/19/23 21:40 75 134/107 82 L 02/19/23 21:30 100/74 02/19/23 21:20 59 L 19 100/74 02/19/23 21:10 59 L 17 02/19/23 20:40 56/37 02/19/23 20:30 56/37 02/19/23 20:20 58 L 20 102/71 99 02/19/23 20:10 56 L 20 67/40 99 02/19/23 20:00 59 L 20 58/48 97 02/19/23 19:50 55 L 20 92/66 100 02/19/23 19:40 55 L 22 103/73 100 02/19/23 19:36 55 L 20 103/73 100 02/19/23 19:35 62 20 103/73 99 02/19/23 19:20 57 L 17 83/60 92 L 02/19/23 19:19 83/60 02/19/23 19:15 34/23 02/19/23 19:10 45 L 21 117/98 99 02/19/23 18:40 45 L 22 106/65 02/19/23 18:30 47 L 23 101/39 02/19/23 18:10 58 L 28 H 99/65 97 02/19/23 18:00 16 93/74 02/19/23 17:50 61 27 H 83/60 02/19/23 17:37 97 02/19/23 17:32 82 22 83/60 90 L FiO2 02/20/23 13:05 02/20/23 13:00 02/20/23 12:55 02/20/23 12:50 02/20/23 12:45 02/20/23 12:40 02/20/23 12:35 02/20/23 12:30 02/20/23 12:25 02/20/23 12:20 02/20/23 12:15 02/20/23 12:10 02/20/23 12:05 02/20/23 12:00 02/20/23 11:55 02/20/23 11:50 02/20/23 11:45 02/20/23 11:40 02/20/23 11:35 02/20/23 11:30 02/20/23 11:25 02/20/23 11:20 02/20/23 11:15 02/20/23 11:13 100 02/20/23 11:10 02/20/23 11:05 02/20/23 11:00 02/20/23 10:55 02/20/23 10:50 02/20/23 10:45 02/20/23 10:40 02/20/23 10:35 02/20/23 10:30 02/20/23 10:25 02/20/23 10:20 02/20/23 10:15 02/20/23 10:10 02/20/23 10:05 02/20/23 10:00 02/20/23 09:55 02/20/23 09:50 02/20/23 09:45 02/20/23 09:40 02/20/23 09:35 02/20/23 09:30 02/20/23 09:25 02/20/23 09:20 02/20/23 09:15 02/20/23 09:10 02/20/23 09:05 02/20/23 09:00 02/20/23 08:55 02/20/23 08:50 02/20/23 08:45 02/20/23 08:40 02/20/23 08:35 02/20/23 08:30 02/20/23 08:25 02/20/23 08:20 02/20/23 08:15 02/20/23 08:10 02/20/23 08:06 100 02/20/23 08:05 02/20/23 08:00 02/20/23 07:55 02/20/23 07:50 02/20/23 07:45 02/20/23 07:40 02/20/23 07:35 02/20/23 07:30 02/20/23 07:25 02/20/23 07:20 02/20/23 07:15 02/20/23 07:10 02/20/23 07:05 02/20/23 07:00 02/20/23 06:45 02/20/23 06:30 02/20/23 06:15 02/20/23 06:00 02/20/23 05:45 02/20/23 05:30 02/20/23 05:27 02/20/23 05:15 02/20/23 05:00 02/20/23 04:45 02/20/23 04:30 02/20/23 04:15 02/20/23 04:00 100 02/20/23 03:45 02/20/23 03:30 02/20/23 03:27 100 02/20/23 03:15 02/20/23 03:00 02/20/23 02:45 02/20/23 02:30 02/20/23 02:15 02/20/23 02:02 02/20/23 02:00 02/20/23 01:45 02/20/23 01:42 02/20/23 01:33 02/20/23 01:30 02/20/23 01:27 100 02/20/23 01:20 1.0 02/20/23 01:15 02/20/23 01:12 02/20/23 01:00 02/20/23 00:50 02/20/23 00:40 02/20/23 00:30 02/20/23 00:20 02/20/23 00:10 02/20/23 00:00 02/19/23 23:50 02/19/23 23:40 02/19/23 23:30 02/19/23 23:20 02/19/23 23:10 02/19/23 23:00 02/19/23 22:50 02/19/23 22:40 02/19/23 22:30 02/19/23 22:20 02/19/23 22:10 02/19/23 22:00 02/19/23 21:50 02/19/23 21:40 02/19/23 21:30 02/19/23 21:20 02/19/23 21:10 02/19/23 20:40 02/19/23 20:30 02/19/23 20:20 02/19/23 20:10 02/19/23 20:00 02/19/23 19:50 02/19/23 19:40 02/19/23 19:36 02/19/23 19:35 02/19/23 19:20 02/19/23 19:19 02/19/23 19:15 02/19/23 19:10 02/19/23 18:40 02/19/23 18:30 02/19/23 18:10 02/19/23 18:00 02/19/23 17:50 02/19/23 17:37 02/19/23 17:32 Intake and Output 02/19/23 02/20/23 02/20/23 22:59 06:59 14:59 Intake Total 610 3536.990 1744.644 Output Total 0 35 Balance 610 3536.990 1709.644 Intake: Intake, IV Titration 610 2426.990 1744.644 Amount Desmopressin Acetate 30 50 mcg In Sodium Chloride 0. 9% 50 ml @ 200 mls/hr IVPB ONCE ONE Rx#: [id number] Dexmedetomidine/0.9% NaCl 61.372 127.748 (Pmx) 400 mcg In Empty Bag 1 bag @ 0.2 MCG/KG/HR 3.856 mls/hr IV .Q24H [facility] Rx#:[id number] Dextrose 10% in Water 500 100 100 ml In Empty Bag 1 bag @ 50 mls/hr IV .Q10H [facility] Rx #:[id number] Dextrose 5% in Water 1, 200 900 700 000 ml @ 100 mls/hr IV . [id number] [facility] with Sodium Bicarb (1 Meq/ml) 150 ml Rx#:[id number] Norepinephrine 4 mg In 195.618 Sodium Chloride 0.9% 250 ml @ 0.03 MCG/KG/MIN 8. 814 mls/hr IV .Q24H [facility] Rx#:[id number] Sodium Chloride 0.9% 1, 260 1170 910 000 ml @ 130 mls/hr IV . [id number] STA Rx#:[id number] Vasopressin 60 unit In 4.208 Sodium Chloride 0.9% 150 ml @ 0.03 UNITS/MIN 4.59 mls/hr IV .Q24H [facility] Rx#: [id number] propofoL 1,000 mg In 2.688 Empty Bag 1 bag @ 15 MCG/ KG/MIN 5.04 mls/hr IV . [id number] [facility] Rx#:[id number] Blood Product 310 Rc As-1 Unit 310 [id number] Hemodialysis 800 Output: Urine 35 Hemodialysis 0 Other: Voiding Method Indwelling Catheter Indwelling Catheter Indwelling Catheter # Bowel Movements 1 1 Weight 77.111 kg 56 kg Physical Exam: Revealed 77-year-old female, intubated, mechanically, unresponsive to any stimuli, on Precedex at 1.4 mcg/kg/h HEENT:[Neck is supple.] [No neck masses.] [No thyromegaly.] [No JVD.] Chest: Diminished breath sound bilaterally no crackles or rhonchi or wheezes Cardiac Exam: [Normal S1 and S2, no S3 gallop, no murmur.] Abdomen: [Soft, nontender, no megaly, no rebound, no guarding, negative bowel sounds. Extremities: No palpable pulses in the upper and lower extremities, trace of bipedal edema, patient has a right subclavian central line, and left femoral hemodialysis catheter Neurological Exam: Could not assess, patient is sedated and on Precedex, however unresponsive to any stimuli except opening eyes with deep painful stimuli only. Psychiatric: Could not assess. Skin: Multiple areas of bruising but no rashes Results - Laboratory Findings CBC and BMP: 02/20/23 03:38 02/20/23 10:55 ABG ABG pH 7.26 (7.35-7.45) L 02/20/23 10:00 ABG pCO2 47 mmHg (35-45) H 02/20/23 10:00 ABG pO2 35 mmHg (83-108) L* 10/30/23 10:00 ABG O2 Saturation 62.9 % (94-97) L 02/20/23 10:00 PT/INR, D-dimer PT 11.7 sec (10.0-12.5) 02/19/23 17:43 INR 1.1 (<1.2) 02/19/23 17:43 Abnormal lab findings: Abnormal Labs 02/19/23 02/19/23 02/19/23 17:39 17:40 17:43 WBC 17.8 H RBC 3.00 L Hgb 9.3 L Hct 29.8 L Plt Count Neutrophils # 15.8 H Lymphocytes # Lymphocytes # (Manual) ABG pH ABG pCO2 ABG pO2 ABG HCO3 ABG Total CO2 ABG O2 Saturation VBG pH VBG HCO3 Sodium Potassium Chloride Carbon Dioxide BUN Creatinine Glucose POC Glucose (mg/dL) 62 L Osmolality Plasma Lactic Acid [place] Calcium Magnesium AST ALT Alkaline Phosphatase Creatine Kinase Total Protein Albumin Free T4 Free T3 pg/mL Urine Appearance Urine Protein Urine Glucose (UA) Urine Ketones Urine Blood Urine Bilirubin Ur Leukocyte Esterase Urine WBC Ur Squamous Epith Cells Urine Bacteria Urine Mucus Stool Occult Blood Crossmatch See Detail 02/19/23 02/19/23 02/19/23 17:43 17:43 18:54 WBC RBC Hgb Hct Plt Count Neutrophils # Lymphocytes # Lymphocytes # (Manual) ABG pH ABG pCO2 ABG pO2 ABG HCO3 ABG Total CO2 ABG O2 Saturation VBG pH VBG HCO3 Sodium Potassium 7.2 H* Chloride 109 H Carbon Dioxide <5 L* BUN 165 H* Creatinine 8.20 H* Glucose 62 L POC Glucose (mg/dL) 156 H Osmolality Plasma Lactic Acid [place] Calcium 8.3 L Magnesium 2.5 H AST 1107 H ALT 630 H Alkaline Phosphatase 128 H Creatine Kinase Total Protein 6.0 L Albumin 3.2 L Free T4 Free T3 pg/mL Urine Appearance Urine Protein Urine Glucose (UA) Urine Ketones Urine Blood Urine Bilirubin Ur Leukocyte Esterase Urine WBC Ur Squamous Epith Cells Urine Bacteria Urine Mucus Stool Occult Blood Positive H Crossmatch 02/19/23 02/19/23 02/19/23 18:55 18:55 19:09 WBC 14.7 H RBC 2.82 L Hgb 9.0 L Hct 27.6 L Plt Count Neutrophils # 13.4 H Lymphocytes # 0.9 L Lymphocytes # (Manual) ABG pH ABG pCO2 ABG pO2 ABG HCO3 ABG Total CO2 ABG O2 Saturation VBG pH VBG HCO3 Sodium Potassium 6.6 H* Chloride 110 H Carbon Dioxide <5 L* BUN 161 H* Creatinine 7.93 H* Glucose 126 H POC Glucose (mg/dL) Osmolality 360 H* Plasma Lactic Acid [place] Calcium 7.6 L Magnesium AST 1069 H ALT 649 H Alkaline Phosphatase Creatine Kinase Total Protein 5.4 L Albumin 2.8 L Free T4 Free T3 pg/mL Urine Appearance Urine Protein Urine Glucose (UA) Urine Ketones Urine Blood Urine Bilirubin Ur Leukocyte Esterase Urine WBC Ur Squamous Epith Cells Urine Bacteria Urine Mucus Stool Occult Blood Crossmatch 02/19/23 02/19/23 02/19/23 19:09 19:15 19:41 WBC RBC Hgb Hct Plt Count Neutrophils # Lymphocytes # Lymphocytes # (Manual) ABG pH 7.06 L* ABG pCO2 26 L ABG pO2 ABG HCO3 7 L* ABG Total CO2 8 L ABG O2 Saturation 97.5 H VBG pH VBG HCO3 Sodium Potassium Chloride Carbon Dioxide BUN Creatinine Glucose POC Glucose (mg/dL) 136 H Osmolality Plasma Lactic Acid [place] Calcium Magnesium AST ALT Alkaline Phosphatase Creatine Kinase Total Protein Albumin Free T4 0.67 L Free T3 pg/mL 7.5 H Urine Appearance Urine Protein Urine Glucose (UA) Urine Ketones Urine Blood Urine Bilirubin Ur Leukocyte Esterase Urine WBC Ur Squamous Epith Cells Urine Bacteria Urine Mucus Stool Occult Blood Crossmatch 02/19/23 02/19/23 02/20/23 20:06 21:40 00:12 WBC RBC Hgb Hct Plt Count Neutrophils # Lymphocytes # Lymphocytes # (Manual) ABG pH ABG pCO2 ABG pO2 ABG HCO3 ABG Total CO2 ABG O2 Saturation VBG pH VBG HCO3 Sodium Potassium 5.5 H Chloride Carbon Dioxide BUN Creatinine Glucose POC Glucose (mg/dL) 120 H Osmolality Plasma Lactic Acid [place] Calcium Magnesium AST ALT Alkaline Phosphatase Creatine Kinase 310 H Total Protein Albumin Free T4 Free T3 pg/mL Urine Appearance Turbid H Urine Protein 3+ H Urine Glucose (UA) Trace H Urine Ketones Trace H Urine Blood Small H Urine Bilirubin 1+ H Ur Leukocyte Esterase Trace H Urine WBC 23 H Ur Squamous Epith Cells 16 H Urine Bacteria Occasional H Urine Mucus Rare H Stool Occult Blood Crossmatch 02/20/23 02/20/23 02/20/23 01:37 01:37 03:37 WBC RBC 2.16 L Hgb 6.6 L* D Hct 20.3 L Plt Count 120 L D Neutrophils # Lymphocytes # Lymphocytes # (Manual) 0.56 L ABG pH ABG pCO2 ABG pO2 ABG HCO3 ABG Total CO2 ABG O2 Saturation VBG pH VBG HCO3 Sodium 135 L Potassium 2.9 L 3.4 L Chloride 111 H Carbon Dioxide 12 L BUN 60 H Creatinine 3.00 H Glucose POC Glucose (mg/dL) Osmolality Plasma Lactic Acid [place] Calcium 7.3 L Magnesium AST 964 H ALT 522 H Alkaline Phosphatase Creatine Kinase Total Protein 3.8 L Albumin 1.9 L Free T4 Free T3 pg/mL Urine Appearance Urine Protein Urine Glucose (UA) Urine Ketones Urine Blood Urine Bilirubin Ur Leukocyte Esterase Urine WBC Ur Squamous Epith Cells Urine Bacteria Urine Mucus Stool Occult Blood Crossmatch 02/20/23 02/20/23 02/20/23 03:38 06:08 09:39 WBC RBC 2.77 L Hgb 8.5 L D Hct 26.1 L Plt Count 123 L Neutrophils # Lymphocytes # 0.4 L Lymphocytes # (Manual) ABG pH 7.17 L* ABG pCO2 ABG pO2 52 L* ABG HCO3 14 L ABG Total CO2 15 L ABG O2 Saturation 81.2 L VBG pH VBG HCO3 Sodium Potassium Chloride Carbon Dioxide BUN Creatinine Glucose POC Glucose (mg/dL) 148 H Osmolality Plasma Lactic Acid [place] Calcium Magnesium AST ALT Alkaline Phosphatase Creatine Kinase Total Protein Albumin Free T4 Free T3 pg/mL Urine Appearance Urine Protein Urine Glucose (UA) Urine Ketones Urine Blood Urine Bilirubin Ur Leukocyte Esterase Urine WBC Ur Squamous Epith Cells Urine Bacteria Urine Mucus Stool Occult Blood Crossmatch 02/20/23 02/20/23 02/20/23 09:46 10:00 10:55 WBC RBC Hgb Hct Plt Count Neutrophils # Lymphocytes # Lymphocytes # (Manual) ABG pH 7.26 L ABG pCO2 47 H ABG pO2 35 L* ABG HCO3 ABG Total CO2 ABG O2 Saturation 62.9 L VBG pH 7.19 L* VBG HCO3 15 L Sodium Potassium Chloride 111 H Carbon Dioxide 17 L BUN 52 H Creatinine 2.84 H Glucose 146 H POC Glucose (mg/dL) Osmolality Plasma Lactic Acid [place] Calcium 6.3 L* Magnesium 1.4 L AST ALT Alkaline Phosphatase Creatine Kinase Total Protein Albumin Free T4 Free T3 pg/mL Urine Appearance Urine Protein Urine Glucose (UA) Urine Ketones Urine Blood Urine Bilirubin Ur Leukocyte Esterase Urine WBC Ur Squamous Epith Cells Urine Bacteria Urine Mucus Stool Occult Blood Crossmatch 02/20/23 02/20/23 10:55 11:43 WBC RBC Hgb Hct Plt Count Neutrophils # Lymphocytes # Lymphocytes # (Manual) ABG pH ABG pCO2 ABG pO2 ABG HCO3 ABG Total CO2 ABG O2 Saturation VBG pH VBG HCO3 Sodium Potassium Chloride Carbon Dioxide BUN Creatinine Glucose POC Glucose (mg/dL) 151 H Osmolality Plasma Lactic Acid [place] 4.5 H* Calcium Magnesium AST ALT Alkaline Phosphatase Creatine Kinase Total Protein Albumin Free T4 Free T3 pg/mL Urine Appearance Urine Protein Urine Glucose (UA) Urine Ketones Urine Blood Urine Bilirubin Ur Leukocyte Esterase Urine WBC Ur Squamous Epith Cells Urine Bacteria Urine Mucus Stool Occult Blood Crossmatch - Diagnostic Findings Chest x-ray: image reviewed (Left basilar infiltrate/edema ) Additional studies: Computed tomography scan of abdomen and pelvis, showed mostly abdominal aortic aneurysm 4.4 cm changes suggestive of mild diverticulitis/sigmoid colon otherwise negative Assessment and Plan Assessment: Impression: Acute GI bleeding, exact source is not clear Acute kidney injury with acute tubular necrosis secondary to hypotension Hypovolemic hypotension with acute kidney injury Hyperkalemia secondary to acute kidney injury requiring hemodialysis Acute anion gap metabolic acidosis, secondary to acute kidney injury and possible DKA. Shock liver Severe cardiomyopathy and LV dysfunction history of underlying coronary artery disease and previous PCI. History of hypertension Dyslipidemia Recommendation: Continue ventilatory support patient is now on assist control rate of 28 tidal volume 450 FiO2 100% and PEEP of 5 Continue hemodialysis Continue pressors and inotropes including vasopressin, norepinephrine, and dobutamine Continue bicarb drip Change Precedex the propofol We will try to establish an arterial line access and to hemodynamically monitor the patient Monitor hemoglobin and hematocrit/CBC serially and transfuse for hemoglobin below 7 Continue IV fluid and IV fluid boluses Considering the patient is profoundly hypotensive and not responding to pressors, I believe her prognosis is extremely poor Patient is critically ill. Critical care time is over 70 minutes Time with Patient: Greater than 30
[2023-02-20 14:05] LABS: HCT 27.4 % (34.0-46.0); HGB 9.4 gm/dL (11.4-16.0); MCH 32.1 pg (25.0-35.0); MCHC 34.3 g/dL (31.0-37.0); MCV 93.6 fL (80.0-100.0); Mean Platelet Volume 8.7; Platelet Count 154 k/uL (150-450); RBC 2.93 m/uL (3.80-5.40); RDW 14.3 % (11.5-15.5); WBC 14.6 k/uL (3.8-10.6)
--- NOTE | 2023-02-20 17:15 | P.CNNES ---
History of Present Illness Consult date: 02/20/23 Requesting physician: Lizbeth Moseley Reason for Consult: Possible seizures History of Present Illness: Patient is a 77-year-old female came to the hospital by ambulance yesterday at 5:22 PM for a syncopal spell. Patient's daughter was present at this time, who provided the history. Patient's daughter mentions that she went in the room, and so her on the floor. She was responsive, and denies any fall or hitting her head. She told her daughter that she just sat down. She has been having diarrhea for last 1-2 weeks. Then the patient's daughter cleaned her, she notices that patient had black tarry stools. Patient has not slept for 3 days. Patient was brought to the hospital yesterday evening. Patient was clinically getting worse, therefore she was intubated and brought to the ICU. Patient was noted to be in acute renal failure. Patient had undergone hemodialysis catheter placement, underwent dialysis. Patient then developed atrial fibrillation with rapid ventricular response. Patient was started on amiodarone, but this was discontinued because of her severely abnormal liver functions. Patient is not having any urine output. She is on maximum dose of Levophed and vasopressin. Her lactate was noted to be 4.2 for which patient has been started on Zosyn, blood cultures taken. Patient has developed some mottling of the left foot. Apparently overnight patient has some twitching, seizure-like activity, for which the nursing staff called me emergency vehicle technician. Patient was given Keppra 750 mg 1 dose. No further seizure activity has been noticed. When necessary Ativan order was given but has not been required. As per EMS flow sheet, when they arrived, patient was not thriving. According to the family, the patient hasn't been eating or drinking much and now has been showing signs of decreased mental status. She has been declining over the last 2 weeks or so. Today she came over to help the patient, when she noticed that the patient had very dark runny stools and when she attempted to clean her up, she noticed that the stools were very bloody. Patient was showing signs of respiratory distress but patient declined. Patient also appeared to be in pain and she was unable to articulate what if anything was causing her pain. Oxygen was started. Cardiac monitoring showed atrial fibrillation with slow ventricular response. EKG showed atrial fibrillation and reading a possible S LAMBERTO but due to artifact was difficult to confirm. Vitals ordered the scene was blood pressure 123/96, pulse rate 50, respirations 24 saturation 92% and blood sugar 85. Blood test shows WBC 17.8 hemoglobin 9.3, platelets are normal, PT/PTT normal, sodium is normal potassium 7.2, BUN 165, creatinine 8.2, glucose 62, AST is elevated 04/24/2006 and ALT 630. TSH is normal but free T4 is low 0.67. Stool occult blood positive. Serum salicylate, acetaminophen, and blood alcohol level are negative, but acetone is positive. Patient's hemoglobin dropped down to 6.6. Patient's pH 7.17, pCO2 38, pO2 52 and saturation 81%. UA shows trace leukocyte esterase, 23 WBCs. CK is mildly elevated 310. EKG shows sinus bradycardia with first-degree AV block. CT of abdomen and pelvis showed changes suggestive for mild diverticulitis sigmoid colon. Abdominal aortic aneurysm of 4.4 cm. Atrophic left kidney. Chest x-ray showed ET tube, NG tube. A rounded nodule is noted immediately lateral to the left hilum measuring 14 mm with surrounding surgical clips. The location is somewhat indeterminant without lateral projection view. Cardiomegaly. Patient takes sertraline 200 mg, vitamin D, Crestor 10 mg, metoprolol, Lasix, aspirin 81 mg, Aldactone and losartan. Patient has history of smoking 2 packs per day since 20s. No alcohol use. No diabetes. Patient is currently on dopamine 2.5 mcg/kg per minute, propofol 20 mcg/kg per minute, norepinephrine 0.9 mcg/kg/m, Zosyn and vasopressin 0.04 units per minute. Review of Systems As per report from patient's daughter. Constitutional: Reports weight loss, Denies chills, Denies fever Eyes: denies blurred vision, denies pain Ears: deny: decreased hearing, ear discharge Ears, nose, mouth and throat: Denies headache, Denies sore throat Cardiovascular: Denies chest pain, Denies shortness of breath Respiratory: Denies cough, Denies excessive sputum Gastrointestinal: Reports diarrhea, Reports nausea, Denies abdominal pain, Denies vomiting Genitourinary: Denies dysuria, Denies hematuria, Denies mixed incontinence Musculoskeletal: Denies low back pain, Denies myalgias, Denies neck pain Integumentary: Denies pruritus, Denies rash Neurological: Denies change in speech, Denies numbness, Denies weakness Psychiatric: Reports anxiety, Reports depression Endocrine: Reports fatigue, Reports weight change Hematologic/Lymphatic: Reports easy bruising, Denies easy bleeding Past Medical History Past Medical History: Hyperlipidemia, Memory Impairment Additional Past Medical History / Comment(s): PAST HISTORY OF THYROID PROBLEMS, LEFT BREAST CANCER, swollen feet/takes Lasix History of Any Multi-Drug Resistant Organisms: None Reported Past Surgical History: Heart Catheterization With Stent Additional Past Surgical History / Comment(s): BILATERAL CATARACT SURGERY , LEFT BREAST LUMPECTOMY,LAPAROTOMY FOR ECTOPIC PREG, Left TIFFANY (12/07/21). Hip replacemnt in 2021 per Lanny, daughter Date of Last Stent Placement:: roughly July, Smoking Status: Current every day smoker Medications and Allergies Home Medications Medication Instructions Recorded Confirmed Type Cholecalciferol [Vitamin D3 (25 25 mcg PO DAILY 03/15/21 02/19/23 History Mcg = 1000 Iu)] Rosuvastatin Calcium [Crestor] 10 mg PO DAILY 03/15/21 02/19/23 History Sertraline [Zoloft] 200 mg PO HS 03/15/21 02/19/23 History Metoprolol Tartrate [Lopressor] 25 mg PO HS 04/05/21 02/19/23 History Metoprolol Tartrate [Lopressor] 50 mg PO DAILY 04/05/21 02/19/23 History Aspirin EC [Ecotrin Low Dose] 81 mg PO DAILY 02/19/23 02/19/23 History Furosemide [Lasix] 40 mg PO DAILY 02/19/23 02/19/23 History Losartan [Cozaar] 50 mg PO DAILY 02/19/23 02/19/23 History Spironolactone [Aldactone] 12.5 mg PO HS 02/19/23 02/19/23 History Allergies Allergy/AdvReac Type Severity Reaction Status Date / Time No Known Allergies Allergy Verified 02/19/23 19:10 Physical Examination - Vital Signs Vital Signs: Vital Signs Temp Pulse Pulse Resp BP BP Pulse Ox 02/20/23 11:30 128 H 28 H 118/91 93 L 02/20/23 11:25 117 H 28 H 115/26 93 L 02/20/23 11:20 118 H 28 H 70/39 93 L 02/20/23 11:15 122 H 28 H 76/48 93 L 02/20/23 11:13 02/20/23 11:10 121 H 28 H 39/27 95 02/20/23 11:05 112 H 28 H 108/69 97 02/20/23 11:00 100 28 H 82/50 97 02/20/23 10:55 98 28 H 124/86 02/20/23 10:50 102 H 28 H 91/31 02/20/23 10:45 111 H 28 H 85/51 02/20/23 10:40 73 28 H 110/62 95 02/20/23 10:35 75 28 H 121/35 93 L 02/20/23 10:30 124 H 28 H 96/55 97 02/20/23 10:25 128 H 28 H 58/39 95 02/20/23 10:20 71 28 H 82/24 97 02/20/23 10:15 69 28 H 96/34 99 02/20/23 10:10 78 28 H 95/44 100 02/20/23 10:05 88 17 98/39 100 02/20/23 10:00 65 28 H 82/60 100 02/20/23 09:55 141 H 30 H 100 02/20/23 09:50 111 H 28 H 100 02/20/23 09:45 70 29 H 100 02/20/23 09:40 73 28 H 100 02/20/23 09:35 74 28 H 100 02/20/23 09:30 70 28 H 97/28 100 02/20/23 09:25 68 28 H 97/28 100 02/20/23 09:20 89 28 H 84/36 99 02/20/23 09:15 66 28 H 84/36 100 02/20/23 09:10 70 28 H 66/35 99 02/20/23 09:05 70 28 H 88/34 100 02/20/23 09:00 83 28 H 100 02/20/23 08:55 66 28 H 120/40 100 02/20/23 08:50 61 28 H 120/40 100 02/20/23 08:45 73 28 H 120/40 99 02/20/23 08:40 75 28 H 106/52 99 02/20/23 08:35 64 28 H 106/52 99 02/20/23 08:30 72 28 H 85/28 100 02/20/23 08:25 74 28 H 85/28 100 02/20/23 08:20 78 28 H 73/21 100 02/20/23 08:15 80 28 H 87/38 100 02/20/23 08:10 53 L 28 H 97 02/20/23 08:06 02/20/23 08:05 80 28 H 02/20/23 08:00 97.1 F L 76 28 H 96 02/20/23 07:55 82 28 H 02/20/23 07:50 83 28 H 112/28 89 L 02/20/23 07:45 77 28 H 112/28 87 L 02/20/23 07:40 74 28 H 88/62 99 02/20/23 07:35 73 28 H 88/62 02/20/23 07:30 78 28 H 100 02/20/23 07:25 80 28 H 100/31 02/20/23 07:20 72 28 H 90/43 02/20/23 07:15 70 28 H 90/43 96 02/20/23 07:10 71 4 L 69/39 94 L 02/20/23 07:05 67 28 H 69/39 96 02/20/23 07:00 78 14 46/35 97 02/20/23 06:45 70 22 74/57 94 L 02/20/23 06:30 70 18 118/67 96 02/20/23 06:15 68 11 L 81/71 95 02/20/23 06:00 68 11 L 117/85 90 L 02/20/23 05:45 76 19 106/94 91 L 02/20/23 05:30 74 12 98/62 98 02/20/23 05:27 97.3 F L 98 28 H 103/93 96 02/20/23 05:15 76 35 H 102/86 95 02/20/23 05:00 73 8 L 82/37 82 L 02/20/23 04:45 62 117/68 02/20/23 04:30 101 H 22 90/27 99 02/20/23 04:15 137 H 16 82/62 99 02/20/23 04:00 97.2 F L 133 H 32 H 118/92 02/20/23 03:45 144 H 30 H 02/20/23 03:30 133 H 28 H 95 02/20/23 03:27 02/20/23 03:15 131 H 23 57/41 02/20/23 03:00 144 H 25 H 66/52 78 L 02/20/23 02:45 120 H 24 02/20/23 02:30 96 15 02/20/23 02:15 99 34 H 103/93 02/20/23 02:02 97.3 F L 103 H 28 H 86/70 96 02/20/23 02:00 102 H 28 H 86/70 98 02/20/23 01:45 85 28 H 133/95 02/20/23 01:42 97.2 F L 91 31 H 133/95 98 02/20/23 01:33 97.0 F L 109 H 28 H 98/80 97 02/20/23 01:30 120 H 18 80/51 73 L 02/20/23 01:27 02/20/23 01:20 02/20/23 01:15 87 21 168/127 80 L 02/20/23 01:12 02/20/23 01:00 96 35 H 168/127 02/20/23 00:50 92 16 37/23 02/20/23 00:40 96.4 F L 93 91 18 59/40 93/77 79 L 02/20/23 00:30 86 17 52/28 02/20/23 00:20 85 18 93/77 02/20/23 00:10 79 29 H 110/36 02/20/23 00:00 79 21 45/30 02/19/23 23:50 78 21 127/97 02/19/23 23:40 79 24 84/68 02/19/23 23:30 79 25 H 111/68 02/19/23 23:20 78 24 106/63 02/19/23 23:10 76 34 H 106/63 02/19/23 23:00 77 23 94/78 02/19/23 22:50 70 26 H 153/137 91 L 02/19/23 22:40 67 23 109/76 96 02/19/23 22:30 67 20 109/76 02/19/23 22:20 67 19 122/101 02/19/23 22:10 36 H 105/88 02/19/23 22:00 63 79/53 02/19/23 21:50 61 49/28 02/19/23 21:40 75 134/107 82 L 02/19/23 21:30 100/74 02/19/23 21:20 59 L 19 100/74 02/19/23 21:10 59 L 17 02/19/23 20:40 56/37 02/19/23 20:30 56/37 02/19/23 20:20 58 L 20 102/71 99 02/19/23 20:10 56 L 20 67/40 99 02/19/23 20:00 59 L 20 58/48 97 02/19/23 19:50 55 L 20 92/66 100 02/19/23 19:40 55 L 22 103/73 100 02/19/23 19:36 55 L 20 103/73 100 02/19/23 19:35 62 20 103/73 99 02/19/23 19:20 57 L 17 83/60 92 L 02/19/23 19:19 83/60 02/19/23 19:15 3402/19/23 19:10 45 L 21 117/98 99 02/19/23 18:40 45 L 22 106/65 02/19/23 18:30 47 L 23 101/39 02/19/23 18:10 58 L 28 H 99/65 97 02/19/23 18:00 16 93/74 02/19/23 17:50 61 27 H 83/60 02/19/23 17:37 97 02/19/23 17:32 82 22 83/60 90 L FiO2 02/20/23 11:30 02/20/23 11:25 02/20/23 11:20 02/20/23 11:15 02/20/23 11:13 100 02/20/23 11:10 02/20/23 11:05 02/20/23 11:00 02/20/23 10:55 02/20/23 10:50 02/20/23 10:45 02/20/23 10:40 02/20/23 10:35 02/20/23 10:30 02/20/23 10:25 02/20/23 10:20 02/20/23 10:15 02/20/23 10:10 02/20/23 10:05 02/20/23 10:00 02/20/23 09:55 02/20/23 09:50 02/20/23 09:45 02/20/23 09:40 02/20/23 09:35 02/20/23 09:30 02/20/23 09:25 02/20/23 09:20 02/20/23 09:15 02/20/23 09:10 02/20/23 09:05 02/20/23 09:00 02/20/23 08:55 02/20/23 08:50 02/20/23 08:45 02/20/23 08:40 02/20/23 08:35 02/20/23 08:30 02/20/23 08:25 02/20/23 08:20 02/20/23 08:15 02/20/23 08:10 02/20/23 08:06 100 02/20/23 08:05 02/20/23 08:00 02/20/23 07:55 02/20/23 07:50 02/20/23 07:45 02/20/23 07:40 02/20/23 07:35 02/20/23 07:30 02/20/23 07:25 02/20/23 07:20 02/20/23 07:15 02/20/23 07:10 02/20/23 07:05 02/20/23 07:00 02/20/23 06:45 02/20/23 06:30 02/20/23 06:15 02/20/23 06:00 02/20/23 05:45 02/20/23 05:30 02/20/23 05:27 02/20/23 05:15 02/20/23 05:00 02/20/23 04:45 02/20/23 04:30 02/20/23 04:15 02/20/23 04:00 100 02/20/23 03:45 02/20/23 03:30 02/20/23 03:27 100 02/20/23 03:15 02/20/23 03:00 02/20/23 02:45 02/20/23 02:30 02/20/23 02:15 02/20/23 02:02 02/20/23 02:00 02/20/23 01:45 02/20/23 01:42 02/20/23 01:33 02/20/23 01:30 02/20/23 01:27 100 02/20/23 01:20 1.0 02/20/23 01:15 02/20/23 01:12 100 02/20/23 01:00 02/20/23 00:50 02/20/23 00:40 02/20/23 00:30 02/20/23 00:20 02/20/23 00:10 02/20/23 00:00 02/19/23 23:50 02/19/23 23:40 02/19/23 23:30 02/19/23 23:20 02/19/23 23:10 02/19/23 23:00 02/19/23 22:50 02/19/23 22:40 02/19/23 22:30 02/19/23 22:20 02/19/23 22:10 02/19/23 22:00 02/19/23 21:50 02/19/23 21:40 02/19/23 21:30 02/19/23 21:20 02/19/23 21:10 02/19/23 20:40 02/19/23 20:30 02/19/23 20:20 02/19/23 20:10 02/19/23 20:00 02/19/23 19:50 02/19/23 19:40 02/19/23 19:36 02/19/23 19:35 02/19/23 19:20 02/19/23 19:19 02/19/23 19:15 02/19/23 19:10 02/19/23 18:40 02/19/23 18:30 02/19/23 18:10 02/19/23 18:00 02/19/23 17:50 02/19/23 17:37 02/19/23 17:32 Intake and Output 02/19/23 02/20/23 02/20/23 22:59 06:59 14:59 Intake Total 610 3536.990 1237.254 Output Total 0 25 Balance 610 3536.990 1212.254 Intake: Intake, IV Titration 610 2426.990 1237.254 Amount Desmopressin Acetate 30 50 mcg In Sodium Chloride 0. 9% 50 ml @ 200 mls/hr IVPB ONCE ONE Rx#: [id number] Dexmedetomidine/0.9% NaCl 61.372 84.566 (Pmx) 400 mcg In Empty Bag 1 bag @ 0.2 MCG/KG/HR 3.856 mls/hr IV .Q24H KAITLYN Rx#:[id number] Dextrose 10% in Water 500 100 100 ml In Empty Bag 1 bag @ 50 mls/hr IV .Q10H KAITLYN Rx #:[id number] Dextrose 5% in Water 1, 200 900 500 000 ml @ 100 mls/hr IV . [id number] KAITLYN with Sodium Bicarb (1 Meq/ml) 150 ml Rx#:[id number] Norepinephrine 4 mg In 195.618 Sodium Chloride 0.9% 250 ml @ 0.03 MCG/KG/MIN 8. 814 mls/hr IV .Q24H K[facility]ITLYN Rx#:[id number] Sodium Chloride 0.9% 1, 260 1170 650 000 ml @ 130 mls/hr IV . [id number] STA Rx#:[id number] propofoL 1,000 mg In 2.688 Empty Bag 1 bag @ 15 MCG/ KG/MIN 5.04 mls/hr IV . [id number] KAITLYN Rx#:[id number] Blood Product 310 Rc As-1 Unit 310 [id number] Hemodialysis 800 Output: Urine 25 Hemodialysis 0 Other: Voiding Method Indwelling Catheter Indwelling Catheter Indwelling Catheter # Bowel Movements 1 1 Weight 77.111 kg 56 kg Patient is an elderly female, who is intubated, sedated with propofol. Patient is severely encephalopathic. Patient is not responding to calling her name. On nailbed pressure in the arms and legs, patient does exhibit dislike facial expression and tries to move her head. It was appropriate response. Speech and language otherwise another mental status cannot be assessed. Patient has slight bruising around the right eye. On cranial nerve examination, pupils are equal, , minimally reactive to light. They're very small. Oculocephalics could not be tested. Face and lower cranial nerves cannot be assessed because patient is intubated, sedated. On muscle strength testing, patient has very minimal movement of the feet with painful stimuli. She does facial grimacing with nailbed pressure. Deep tendon reflexes are symmetric and trace in the upper limbs, 1+ at the knees and plantars are possibly upgoing. Sensory to touch cannot be assessed, however with nailbed pressure response mentioned above. Cerebellar function cannot be assessed. Tone and bulk of muscles normal. Gait deferred.. On general examination, there is no carotid bruit or murmur, S1-S2 audible. Chest is clear on consultation. Abdomen is soft nontender. No organomegaly, bowel sounds present. Peripheral pulses are present. No peripheral edema. Results - Laboratory Findings CBC and BMP: 02/20/23 14:02 02/20/23 10:55 Abnormal Lab Findings: Abnormal Labs 02/19/23 02/19/23 02/19/23 17:39 17:40 17:43 WBC 17.8 H RBC 3.00 L Hgb 9.3 L Hct 29.8 L Plt Count Neutrophils # 15.8 H Lymphocytes # Lymphocytes # (Manual) ABG pH ABG pCO2 ABG pO2 ABG HCO3 ABG Total CO2 ABG O2 Saturation VBG pH VBG HCO3 Sodium Potassium Chloride Carbon Dioxide BUN Creatinine Glucose POC Glucose (mg/dL) 62 L Osmolality Plasma Lactic Acid [place] Calcium Magnesium AST ALT Alkaline Phosphatase Creatine Kinase Total Protein Albumin Free T4 Free T3 pg/mL Urine Appearance Urine Protein Urine Glucose (UA) Urine Ketones Urine Blood Urine Bilirubin Ur Leukocyte Esterase Urine WBC Ur Squamous Epith Cells Urine Bacteria Urine Mucus Stool Occult Blood Crossmatch See Detail 02/19/23 02/19/23 02/19/23 17:43 17:43 18:54 WBC RBC Hgb Hct Plt Count Neutrophils # Lymphocytes # Lymphocytes # (Manual) ABG pH ABG pCO2 ABG pO2 ABG HCO3 ABG Total CO2 ABG O2 Saturation VBG pH VBG HCO3 Sodium Potassium 7.2 H* Chloride 109 H Carbon Dioxide <5 L* BUN 165 H* Creatinine 8.20 H* Glucose 62 L POC Glucose (mg/dL) 156 H Osmolality Plasma Lactic Acid [place] Calcium 8.3 L Magnesium 2.5 H AST 1107 H ALT 630 H Alkaline Phosphatase 128 H Creatine Kinase Total Protein 6.0 L Albumin 3.2 L Free T4 Free T3 pg/mL Urine Appearance Urine Protein Urine Glucose (UA) Urine Ketones Urine Blood Urine Bilirubin Ur Leukocyte Esterase Urine WBC Ur Squamous Epith Cells Urine Bacteria Urine Mucus Stool Occult Blood Positive H Crossmatch 02/19/23 02/19/23 02/19/23 18:55 18:55 19:09 WBC 14.7 H RBC 2.82 L Hgb 9.0 L Hct 27.6 L Plt Count Neutrophils # 13.4 H Lymphocytes # 0.9 L Lymphocytes # (Manual) ABG pH ABG pCO2 ABG pO2 ABG HCO3 ABG Total CO2 ABG O2 Saturation VBG pH VBG HCO3 Sodium Potassium 6.6 H* Chloride 110 H Carbon Dioxide <5 L* BUN 161 H* Creatinine 7.93 H* Glucose 126 H POC Glucose (mg/dL) Osmolality 360 H* Plasma Lactic Acid [place] Calcium 7.6 L Magnesium AST 1069 H ALT 649 H Alkaline Phosphatase Creatine Kinase Total Protein 5.4 L Albumin 2.8 L Free T4 Free T3 pg/mL Urine Appearance Urine Protein Urine Glucose (UA) Urine Ketones Urine Blood Urine Bilirubin Ur Leukocyte Esterase Urine WBC Ur Squamous Epith Cells Urine Bacteria Urine Mucus Stool Occult Blood Crossmatch 02/19/23 02/19/23 02/19/23 19:09 19:15 19:41 WBC RBC Hgb Hct Plt Count Neutrophils # Lymphocytes # Lymphocytes # (Manual) ABG pH 7.06 L* ABG pCO2 26 L ABG pO2 ABG HCO3 7 L* ABG Total CO2 8 L ABG O2 Saturation 97.5 H VBG pH VBG HCO3 Sodium Potassium Chloride Carbon Dioxide BUN Creatinine Glucose POC Glucose (mg/dL) 136 H Osmolality Plasma Lactic Acid [place] Calcium Magnesium AST ALT Alkaline Phosphatase Creatine Kinase Total Protein Albumin Free T4 0.67 L Free T3 pg/mL 7.5 H Urine Appearance Urine Protein Urine Glucose (UA) Urine Ketones Urine Blood Urine Bilirubin Ur Leukocyte Esterase Urine WBC Ur Squamous Epith Cells Urine Bacteria Urine Mucus Stool Occult Blood Crossmatch 02/19/23 02/19/23 02/20/23 20:06 21:40 00:12 WBC RBC Hgb Hct Plt Count Neutrophils # Lymphocytes # Lymphocytes # (Manual) ABG pH ABG pCO2 ABG pO2 ABG HCO3 ABG Total CO2 ABG O2 Saturation VBG pH VBG HCO3 Sodium Potassium 5.5 H Chloride Carbon Dioxide BUN Creatinine Glucose POC Glucose (mg/dL) 120 H Osmolality Plasma Lactic Acid [place] Calcium Magnesium AST ALT Alkaline Phosphatase Creatine Kinase 310 H Total Protein Albumin Free T4 Free T3 pg/mL Urine Appearance Turbid H Urine Protein 3+ H Urine Glucose (UA) Trace H Urine Ketones Trace H Urine Blood Small H Urine Bilirubin 1+ H Ur Leukocyte Esterase Trace H Urine WBC 23 H Ur Squamous Epith Cells 16 H Urine Bacteria Occasional H Urine Mucus Rare H Stool Occult Blood Crossmatch 02/20/23 02/20/23 02/20/23 01:37 01:37 03:37 WBC RBC 2.16 L Hgb 6.6 L* D Hct 20.3 L Plt Count 120 L D Neutrophils # Lymphocytes # Lymphocytes # (Manual) 0.56 L ABG pH ABG pCO2 ABG pO2 ABG HCO3 ABG Total CO2 ABG O2 Saturation VBG pH VBG HCO3 Sodium 135 L Potassium 2.9 L 3.4 L Chloride 111 H Carbon Dioxide 12 L BUN 60 H Creatinine 3.00 H Glucose POC Glucose (mg/dL) Osmolality Plasma Lactic Acid [place] Calcium 7.3 L Magnesium AST 964 H ALT 522 H Alkaline Phosphatase Creatine Kinase Total Protein 3.8 L Albumin 1.9 L Free T4 Free T3 pg/mL Urine Appearance Urine Protein Urine Glucose (UA) Urine Ketones Urine Blood Urine Bilirubin Ur Leukocyte Esterase Urine WBC Ur Squamous Epith Cells Urine Bacteria Urine Mucus Stool Occult Blood Crossmatch 02/20/23 02/20/23 02/20/23 03:38 06:08 09:39 WBC RBC 2.77 L Hgb 8.5 L D Hct 26.1 L Plt Count 123 L Neutrophils # Lymphocytes # 0.4 L Lymphocytes # (Manual) ABG pH 7.17 L* ABG pCO2 ABG pO2 52 L* ABG HCO3 14 L ABG Total CO2 15 L ABG O2 Saturation 81.2 L VBG pH VBG HCO3 Sodium Potassium Chloride Carbon Dioxide BUN Creatinine Glucose POC Glucose (mg/dL) 148 H Osmolality Plasma Lactic Acid [place] Calcium Magnesium AST ALT Alkaline Phosphatase Creatine Kinase Total Protein Albumin Free T4 Free T3 pg/mL Urine Appearance Urine Protein Urine Glucose (UA) Urine Ketones Urine Blood Urine Bilirubin Ur Leukocyte Esterase Urine WBC Ur Squamous Epith Cells Urine Bacteria Urine Mucus Stool Occult Blood Crossmatch 02/20/23 02/20/23 02/20/23 09:46 10:00 10:55 WBC RBC Hgb Hct Plt Count Neutrophils # Lymphocytes # Lymphocytes # (Manual) ABG pH 7.26 L ABG pCO2 47 H ABG pO2 35 L* ABG HCO3 ABG Total CO2 ABG O2 Saturation 62.9 L VBG pH 7.19 L* VBG HCO3 15 L Sodium Potassium Chloride 111 H Carbon Dioxide 17 L BUN 52 H Creatinine 2.84 H Glucose 146 H POC Glucose (mg/dL) Osmolality Plasma Lactic Acid [place] Calcium 6.3 L* Magnesium 1.4 L AST ALT Alkaline Phosphatase Creatine Kinase Total Protein Albumin Free T4 Free T3 pg/mL Urine Appearance Urine Protein Urine Glucose (UA) Urine Ketones Urine Blood Urine Bilirubin Ur Leukocyte Esterase Urine WBC Ur Squamous Epith Cells Urine Bacteria Urine Mucus Stool Occult Blood Crossmatch 02/20/23 10:55 WBC RBC Hgb Hct Plt Count Neutrophils # Lymphocytes # Lymphocytes # (Manual) ABG pH ABG pCO2 ABG pO2 ABG HCO3 ABG Total CO2 ABG O2 Saturation VBG pH VBG HCO3 Sodium Potassium Chloride Carbon Dioxide BUN Creatinine Glucose POC Glucose (mg/dL) Osmolality Plasma Lactic Acid [place] 4.5 H* Calcium Magnesium AST ALT Alkaline Phosphatase Creatine Kinase Total Protein Albumin Free T4 Free T3 pg/mL Urine Appearance Urine Protein Urine Glucose (UA) Urine Ketones Urine Blood Urine Bilirubin Ur Leukocyte Esterase Urine WBC Ur Squamous Epith Cells Urine Bacteria Urine Mucus Stool Occult Blood Crossmatch Assessment and Plan Assessment: * Altered mental status, likely due to toxic metabolic encephalopathy. Reasons multifactorial as mentioned below * Acute kidney injury with acute renal failure, started on hemodialysis * Ventilator-dependent respiratory failure, on mechanical ventilation. * Leukocytosis, elevated lactate, rule out sepsis. * Acute GI bleed * Hyperlipidemia due to acute renal failure * Possible DKA * Shock liver * Severe cardiomyopathy and LV dysfunction * CAD * Hypertension * Hyperlipidemia Plan: * EEG was performed which was abnormal due to background slowing of severe degree. This suggestive of generalized cerebral dysfunction as can be seen with toxic metabolic encephalopathy or related to diffuse structural brain abnormality. Clinical correlation and follow-up EEG recommended as clinically indicated. No epileptiform activity was seen. * No need to continue Keppra. If patient has any more clinical seizures, we will start Keppra. * Ativan as needed when necessary seizures. * CT head without contrast, when patient hemodynamically stable. * Neurologically patient is showing meaningful response, with facial grimacing with noxious stimuli involving all 4 extremities. Patient's altered mentation is due to ongoing acute medical conditions as mentioned above. * Other management as per IM/critical care and other specialties on board. * Neurology will follow clinically. Thank you for the consult. Time with Patient: Greater than 30
[2023-02-20 17:52] LABS: Glucose,Whole Blood 93 mg/dL (70-110)
--- NOTE | 2023-02-20 18:40 | P.HPIM ---
History of Present Illness H&P Date: 02/20/23 aKtie Parry, is a 77-year-old female patient of Dr. Acosta who presented to [facility] emergency room with a chief complaint of She was evaluated in the emergency room vital examination on presentation revealed a temperature of 96.4 pulse 82 respiration 22 blood pressure 83/60 puls e ox 90% on room air Laboratory data reveals a white blood count of 14.7 hemoglobin 9.0 platelet cou nt 246 pH 7.06 pCO2 26 PO2 103 sodium 138 potassium 5.5 chloride 110 CO2 less than 5 BUN 161 creatinine 7.93 AST 1069 ALT 649 stools Hemoccult positive Testing in the emergency room revealed computed tomography scan of the abdomen and pelvis reveals changes suggestive for mild diverticulitis of the sigmoid colon and abdominal aortic aneurysm measuring 4.4 cm and atrophic left kidney. EKG revealed sinus bradycardia with first-degree AV block and intraventricular conduction delay. Patient was admitted to ICU for further evaluation and treatment. Past Medical History Past Medical History: Hyperlipidemia, Memory Impairment Additional Past Medical History / Comment(s): PAST HISTORY OF THYROID PROBLEMS, LEFT BREAST CANCER, swollen feet/takes Lasix History of Any Multi-Drug Resistant Organisms: None Reported Past Surgical History: Heart Catheterization With Stent Additional Past Surgical History / Comment(s): BILATERAL CATARACT SURGERY , LEFT BREAST LUMPECTOMY,LAPAROTOMY FOR ECTOPIC PREG, Left TIFFANY (12/07/21). Hip replacemnt in 2021 per jessie Ca Date of Last Stent Placement:: roughly July, Smoking Status: Current every day smoker Medications and Allergies Home Medications Medication Instructions Recorded Confirmed Type Cholecalciferol [Vitamin D3 (25 25 mcg PO DAILY 03/15/21 02/19/23 History Mcg = 1000 Iu)] Rosuvastatin Calcium [Crestor] 10 mg PO DAILY 03/15/21 02/19/23 History Sertraline [Zoloft] 200 mg PO HS 03/15/21 02/19/23 History Metoprolol Tartrate [Lopressor] 25 mg PO HS 04/05/21 02/19/23 History Metoprolol Tartrate [Lopressor] 50 mg PO DAILY 04/05/21 02/19/23 History Aspirin EC [Ecotrin Low Dose] 81 mg PO DAILY 02/19/23 02/19/23 History Furosemide [Lasix] 40 mg PO DAILY 02/19/23 02/19/23 History Losartan [Cozaar] 50 mg PO DAILY 02/19/23 02/19/23 History Spironolactone [Aldactone] 12.5 mg PO HS 02/19/23 02/19/23 History Allergies Allergy/AdvReac Type Severity Reaction Status Date / Time No Known Allergies Allergy Verified 02/19/23 19:10 Physical Exam Vitals: Vital Signs Temp Pulse Pulse Resp BP BP Pulse Ox 02/20/23 08:06 02/20/23 07:00 78 14 46/35 97 02/20/23 06:45 70 22 74/57 94 L 02/20/23 06:30 70 18 118/67 96 02/20/23 06:15 68 11 L 81/71 95 02/20/23 06:00 68 11 L 117/85 90 L 02/20/23 05:45 76 19 106/94 91 L 02/20/23 05:30 74 12 98/62 98 02/20/23 05:27 97.3 F L 98 28 H 103/93 96 02/20/23 05:15 76 35 H 102/86 95 02/20/23 05:00 73 8 L 82/37 82 L 02/20/23 04:45 62 117/68 02/20/23 04:30 101 H 22 90/27 99 02/20/23 04:15 137 H 16 82/62 99 02/20/23 04:00 97.2 F L 133 H 32 H 118/92 02/20/23 03:45 144 H 30 H 02/20/23 03:30 133 H 28 H 95 02/20/23 03:27 02/20/23 03:15 131 H 23 57/41 02/20/23 03:00 144 H 25 H 66/52 78 L 02/20/23 02:45 120 H 24 02/20/23 02:30 96 15 02/20/23 02:15 99 34 H 103/93 02/20/23 02:02 97.3 F L 103 H 28 H 86/70 96 02/20/23 02:00 102 H 28 H 86/70 98 02/20/23 01:45 85 28 H 133/95 02/20/23 01:42 97.2 F L 91 31 H 133/95 98 02/20/23 01:33 97.0 F L 109 H 28 H 98/80 97 02/20/23 01:30 120 H 18 80/51 73 L 02/20/23 01:27 02/20/23 01:20 02/20/23 01:15 87 21 168/127 80 L 02/20/23 01:12 02/20/23 01:00 96 35 H 168/127 02/20/23 00:50 92 16 37/02/20/23 00:40 96.4 F L 93 91 18 59/40 93/77 79 L 02/20/23 00:30 86 17 52/28 02/20/23 00:20 85 18 93/77 02/20/23 00:10 79 29 H 110/36 02/20/23 00:00 79 21 45/30 02/19/23 23:50 78 21 127/97 02/19/23 23:40 79 24 84/68 02/19/23 23:30 79 25 H 111/68 02/19/23 23:20 78 24 106/63 02/19/23 23:10 76 34 H 106/63 02/19/23 23:00 77 23 94/78 02/19/23 22:50 70 26 H 153/137 91 L 02/19/23 22:40 67 23 109/76 96 02/19/23 22:30 67 20 109/76 02/19/23 22:20 67 19 122/101 02/19/23 22:10 36 H 105/88 02/19/23 22:00 63 79/53 02/19/23 21:50 61 49/28 02/19/23 21:40 75 134/107 82 L 02/19/23 21:30 100/74 02/19/23 21:20 59 L 19 100/74 02/19/23 21:10 59 L 17 02/19/23 20:40 56/37 02/19/23 20:30 56/37 02/19/23 20:20 58 L 20 102/71 99 02/19/23 20:10 56 L 20 67/40 99 02/19/23 20:00 59 L 20 58/48 97 02/19/23 19:50 55 L 20 92/66 100 02/19/23 19:40 55 L 22 103/73 100 02/19/23 19:36 55 L 20 103/73 100 02/19/23 19:35 62 20 103/73 99 02/19/23 19:20 57 L 17 83/60 92 L 02/19/23 19:19 83/60 02/19/23 19:15 34/23 02/19/23 19:10 45 L 21 117/98 99 02/19/23 18:40 45 L 22 106/65 02/19/23 18:30 47 L 23 101/39 02/19/23 18:10 58 L 28 H 99/65 97 02/19/23 18:00 16 93/74 02/19/23 17:50 61 27 H 83/60 02/19/23 17:37 97 02/19/23 17:32 82 22 83/60 90 L FiO2 02/20/23 08:06 100 02/20/23 07:00 02/20/23 06:45 02/20/23 06:30 02/20/23 06:15 02/20/23 06:00 02/20/23 05:45 02/20/23 05:30 02/20/23 05:27 02/20/23 05:15 02/20/23 05:00 02/20/23 04:45 02/20/23 04:30 02/20/23 04:15 02/20/23 04:00 100 02/20/23 03:45 02/20/23 03:30 02/20/23 03:27 100 02/20/23 03:15 02/20/23 03:00 02/20/23 02:45 02/20/23 02:30 02/20/23 02:15 02/20/23 02:02 02/20/23 02:00 02/20/23 01:45 02/20/23 01:42 02/20/23 01:33 02/20/23 01:30 02/20/23 01:27 100 02/20/23 01:20 1.0 02/20/23 01:15 02/20/23 01:12 100 02/20/23 01:00 02/20/23 00:50 02/20/23 00:40 02/20/23 00:30 02/20/23 00:20 02/20/23 00:10 02/20/23 00:00 02/19/23 23:50 02/19/23 23:40 02/19/23 23:30 02/19/23 23:20 02/19/23 23:10 02/19/23 23:00 02/19/23 22:50 02/19/23 22:40 02/19/23 22:30 02/19/23 22:20 02/19/23 22:10 02/19/23 22:00 02/19/23 21:50 02/19/23 21:40 02/19/23 21:30 02/19/23 21:20 02/19/23 21:10 02/19/23 20:40 02/19/23 20:30 02/19/23 20:20 02/19/23 20:10 02/19/23 20:00 02/19/23 19:50 02/19/23 19:40 02/19/23 19:36 02/19/23 19:35 02/19/23 19:20 02/19/23 19:19 02/19/23 19:15 02/19/23 19:10 02/19/23 18:40 02/19/23 18:30 02/19/23 18:10 02/19/23 18:00 02/19/23 17:50 02/19/23 17:37 02/19/23 17:32 Intake and Output 02/19/23 02/20/23 02/20/23 22:59 06:59 14:59 Intake Total 610 3536.990 314.566 Output Total 0 Balance 610 3536.990 314.566 Intake: Intake, IV Titration 610 2426.990 314.566 Amount Desmopressin Acetate 30 50 mcg In Sodium Chloride 0. 9% 50 ml @ 200 mls/hr IVPB ONCE ONE Rx#: [id number] Dexmedetomidine/0.9% NaCl 61.372 84.566 (Pmx) 400 mcg In Empty Bag 1 bag @ 0.2 MCG/KG/HR 3.856 mls/hr IV .Q24H [facility] Rx#:[id number] Dextrose 10% in Water 500 100 100 ml In Empty Bag 1 bag @ 50 mls/hr IV .Q10H [facility] Rx #:[id number] Dextrose 5% in Water 1, 200 900 100 000 ml @ 100 mls/hr IV . [id number] [facility] with Sodium Bicarb (1 Meq/ml) 150 ml Rx#:[id number] Norepinephrine 4 mg In 195.618 Sodium Chloride 0.9% 250 ml @ 0.03 MCG/KG/MIN 8. 814 mls/hr IV .Q24H [facility] Rx#:[id number] Sodium Chloride 0.9% 1, 260 1170 130 000 ml @ 130 mls/hr IV . [id number] [facility] Rx#:[id number] Blood Product 310 Rc As-1 Unit 310 [id number] Hemodialysis 800 Output: Hemodialysis 0 Other: Voiding Method Indwelling Catheter Indwelling Catheter # Bowel Movements 1 1 Weight 77.111 kg 56 kg In general patient is intubated sedated maintained on mechanical ventilation HEENT head normocephalic and atraumatic Neck is supple no JVD no goiter no lymphadenopathy no carotid bruit Chest examination is clear to auscultation no crackles no wheezing Cardiac exam reveals regular heart sounds S1 and S2 no gallops no murmurs Abdomen is soft nontender no organomegaly with normal bowel sounds Extremity exam reveals no edema no cyanosis or clubbing Neurological examination reveals no gross focal deficits Results CBC & Chem 7: 02/20/23 14:02 02/20/23 10:55 Labs: Abnormal Lab Results - Last 24 Hours (Table) 02/19/23 02/19/23 02/19/23 Range/Units 17:39 17:40 17:43 WBC 17.8 H (3.8-10.6) k/uL RBC 3.00 L (3.80-5.40) m/uL Hgb 9.3 L (11.4-16.0) gm/dL Hct 29.8 L (34.0-46.0) % Plt Count (150-450) k/uL Neutrophils # 15.8 H (1.3-7.7) k/uL Lymphocytes # (1.0-4.8) k/uL Lymphocytes # (Manual) (1.0-4.8) k/uL ABG pH (7.35-7.45) ABG pCO2 (35-45) mmHg ABG HCO3 (21-25) mmol/L ABG Total CO2 (19-24) mmol/L ABG O2 Saturation (94-97) % Sodium (137-145) mmol/L Potassium (3.5-5.1) mmol/L Chloride (98-107) mmol/L Carbon Dioxide (22-30) mmol/L BUN (7-17) mg/dL Creatinine (0.52-1.04) mg/dL Glucose (74-99) mg/dL POC Glucose (mg/dL) 62 L (70-110) mg/dL Osmolality (280-301) mosm/kg Calcium (8.4-10.2) mg/dL Magnesium (1.6-2.3) mg/dL AST (14-36) U/L ALT (4-34) U/L Alkaline Phosphatase (38-126) U/L Creatine Kinase (30-135) U/L Total Protein (6.3-8.2) g/dL Albumin (3.5-5.0) g/dL Free T4 (0.78-2.19) ng/dL Free T3 pg/mL (2.8-5.3) pg/ml Urine Appearance (Clear) Urine Protein (Negative) Urine Glucose (UA) (Negative) Urine Ketones (Negative) Urine Blood (Negative) Urine Bilirubin (Negative) Ur Leukocyte Esterase (Negative) Urine WBC (0-5) /hpf Ur Squamous Epith Cells (0-4) /hpf Urine Bacteria (None) /hpf Urine Mucus (None) /hpf Stool Occult Blood (Negative) Crossmatch See Detail 02/19/23 02/19/23 02/19/23 Range/Units 17:43 17:43 18:54 WBC (3.8-10.6) k/uL RBC (3.80-5.40) m/uL Hgb (11.4-16.0) gm/dL Hct (34.0-46.0) % Plt Count (150-450) k/uL Neutrophils # (1.3-7.7) k/uL Lymphocytes # (1.0-4.8) k/uL Lymphocytes # (Manual) (1.0-4.8) k/uL ABG pH (7.35-7.45) ABG pCO2 (35-45) mmHg ABG HCO3 (21-25) mmol/L ABG Total CO2 (19-24) mmol/L ABG O2 Saturation (94-97) % Sodium (137-145) mmol/L Potassium 7.2 H* (3.5-5.1) mmol/L Chloride 109 H (98-107) mmol/L Carbon Dioxide <5 L* (22-30) mmol/L BUN 165 H* (7-17) mg/dL Creatinine 8.20 H* (0.52-1.04) mg/dL Glucose 62 L (74-99) mg/dL POC Glucose (mg/dL) 156 H (70-110) mg/dL Osmolality (280-301) mosm/kg Calcium 8.3 L (8.4-10.2) mg/dL Magnesium 2.5 H (1.6-2.3) mg/dL AST 1107 H (14-36) U/L ALT 630 H (4-34) U/L Alkaline Phosphatase 128 H (38-126) U/L Creatine Kinase (30-135) U/L Total Protein 6.0 L (6.3-8.2) g/dL Albumin 3.2 L (3.5-5.0) g/dL Free T4 (0.78-2.19) ng/dL Free T3 pg/mL (2.8-5.3) pg/ml Urine Appearance (Clear) Urine Protein (Negative) Urine Glucose (UA) (Negative) Urine Ketones (Negative) Urine Blood (Negative) Urine Bilirubin (Negative) Ur Leukocyte Esterase (Negative) Urine WBC (0-5) /hpf Ur Squamous Epith Cells (0-4) /hpf Urine Bacteria (None) /hpf Urine Mucus (None) /hpf Stool Occult Blood Positive H (Negative) Crossmatch 02/19/23 02/19/23 02/19/23 Range/Units 18:55 18:55 19:09 WBC 14.7 H (3.8-10.6) k/uL RBC 2.82 L (3.80-5.40) m/uL Hgb 9.0 L (11.4-16.0) gm/dL Hct 27.6 L (34.0-46.0) % Plt Count (150-450) k/uL Neutrophils # 13.4 H (1.3-7.7) k/uL Lymphocytes # 0.9 L (1.0-4.8) k/uL Lymphocytes # (Manual) (1.0-4.8) k/uL ABG pH (7.35-7.45) ABG pCO2 (35-45) mmHg ABG HCO3 (21-25) mmol/L ABG Total CO2 (19-24) mmol/L ABG O2 Saturation (94-97) % Sodium (137-145) mmol/L Potassium 6.6 H* (3.5-5.1) mmol/L Chloride 110 H (98-107) mmol/L Carbon Dioxide <5 L* (22-30) mmol/L BUN 161 H* (7-17) mg/dL Creatinine 7.93 H* (0.52-1.04) mg/dL Glucose 126 H (74-99) mg/dL POC Glucose (mg/dL) (70-110) mg/dL Osmolality 360 H* (280-301) mosm/kg Calcium 7.6 L (8.4-10.2) mg/dL Magnesium (1.6-2.3) mg/dL AST 1069 H (14-36) U/L ALT 649 H (4-34) U/L Alkaline Phosphatase (38-126) U/L Creatine Kinase (30-135) U/L Total Protein 5.4 L (6.3-8.2) g/dL Albumin 2.8 L (3.5-5.0) g/dL Free T4 (0.78-2.19) ng/dL Free T3 pg/mL (2.8-5.3) pg/ml Urine Appearance (Clear) Urine Protein (Negative) Urine Glucose (UA) (Negative) Urine Ketones (Negative) Urine Blood (Negative) Urine Bilirubin (Negative) Ur Leukocyte Esterase (Negative) Urine WBC (0-5) /hpf Ur Squamous Epith Cells (0-4) /hpf Urine Bacteria (None) /hpf Urine Mucus (None) /hpf Stool Occult Blood (Negative) Crossmatch 02/19/23 02/19/23 02/19/23 Range/Units 19:09 19:15 19:41 WBC (3.8-10.6) k/uL RBC (3.80-5.40) m/uL Hgb (11.4-16.0) gm/dL Hct (34.0-46.0) % Plt Count (150-450) k/uL Neutrophils # (1.3-7.7) k/uL Lymphocytes # (1.0-4.8) k/uL Lymphocytes # (Manual) (1.0-4.8) k/uL ABG pH 7.06 L* (7.35-7.45) ABG pCO2 26 L (35-45) mmHg ABG HCO3 7 L* (21-25) mmol/L ABG Total CO2 8 L (19-24) mmol/L ABG O2 Saturation 97.5 H (94-97) % Sodium (137-145) mmol/L Potassium (3.5-5.1) mmol/L Chloride (98-107) mmol/L Carbon Dioxide (22-30) mmol/L BUN (7-17) mg/dL Creatinine (0.52-1.04) mg/dL Glucose (74-99) mg/dL POC Glucose (mg/dL) 136 H (70-110) mg/dL Osmolality (280-301) mosm/kg Calcium (8.4-10.2) mg/dL Magnesium (1.6-2.3) mg/dL AST (14-36) U/L ALT (4-34) U/L Alkaline Phosphatase (38-126) U/L Creatine Kinase (30-135) U/L Total Protein (6.3-8.2) g/dL Albumin (3.5-5.0) g/dL Free T4 0.67 L (0.78-2.19) ng/dL Free T3 pg/mL 7.5 H (2.8-5.3) pg/ml Urine Appearance (Clear) Urine Protein (Negative) Urine Glucose (UA) (Negative) Urine Ketones (Negative) Urine Blood (Negative) Urine Bilirubin (Negative) Ur Leukocyte Esterase (Negative) Urine WBC (0-5) /hpf Ur Squamous Epith Cells (0-4) /hpf Urine Bacteria (None) /hpf Urine Mucus (None) /hpf Stool Occult Blood (Negative) Crossmatch 02/19/23 02/19/23 02/20/23 Range/Units 20:06 21:40 00:12 WBC (3.8-10.6) k/uL RBC (3.80-5.40) m/uL Hgb (11.4-16.0) gm/dL Hct (34.0-46.0) % Plt Count (150-450) k/uL Neutrophils # (1.3-7.7) k/uL Lymphocytes # (1.0-4.8) k/uL Lymphocytes # (Manual) (1.0-4.8) k/uL ABG pH (7.35-7.45) ABG pCO2 (35-45) mmHg ABG HCO3 (21-25) mmol/L ABG Total CO2 (19-24) mmol/L ABG O2 Saturation (94-97) % Sodium (137-145) mmol/L Potassium 5.5 H (3.5-5.1) mmol/L Chloride (98-107) mmol/L Carbon Dioxide (22-30) mmol/L BUN (7-17) mg/dL Creatinine (0.52-1.04) mg/dL Glucose (74-99) mg/dL POC Glucose (mg/dL) 120 H (70-110) mg/dL Osmolality (280-301) mosm/kg Calcium (8.4-10.2) mg/dL Magnesium (1.6-2.3) mg/dL AST (14-36) U/L ALT (4-34) U/L Alkaline Phosphatase (38-126) U/L Creatine Kinase 310 H (30-135) U/L Total Protein (6.3-8.2) g/dL Albumin (3.5-5.0) g/dL Free T4 (0.78-2.19) ng/dL Free T3 pg/mL (2.8-5.3) pg/ml Urine Appearance Turbid H (Clear) Urine Protein 3+ H (Negative) Urine Glucose (UA) Trace H (Negative) Urine Ketones Trace H (Negative) Urine Blood Small H (Negative) Urine Bilirubin 1+ H (Negative) Ur Leukocyte Esterase Trace H (Negative) Urine WBC 23 H (0-5) /hpf Ur Squamous Epith Cells 16 H (0-4) /hpf Urine Bacteria Occasional H (None) /hpf Urine Mucus Rare H (None) /hpf Stool Occult Blood (Negative) Crossmatch 02/20/23 02/20/23 02/20/23 Range/Units 01:37 01:37 03:37 WBC (3.8-10.6) k/uL RBC 2.16 L (3.80-5.40) m/uL Hgb 6.6 L* D (11.4-16.0) gm/dL Hct 20.3 L (34.0-46.0) % Plt Count 120 L D (150-450) k/uL Neutrophils # (1.3-7.7) k/uL Lymphocytes # (1.0-4.8) k/uL Lymphocytes # (Manual) 0.56 L (1.0-4.8) k/uL ABG pH (7.35-7.45) ABG pCO2 (35-45) mmHg ABG HCO3 (21-25) mmol/L ABG Total CO2 (19-24) mmol/L ABG O2 Saturation (94-97) % Sodium 135 L (137-145) mmol/L Potassium 2.9 L 3.4 L (3.5-5.1) mmol/L Chloride 111 H (98-107) mmol/L Carbon Dioxide 12 L (22-30) mmol/L BUN 60 H (7-17) mg/dL Creatinine 3.00 H (0.52-1.04) mg/dL Glucose (74-99) mg/dL POC Glucose (mg/dL) (70-110) mg/dL Osmolality (280-301) mosm/kg Calcium 7.3 L (8.4-10.2) mg/dL Magnesium (1.6-2.3) mg/dL AST 964 H (14-36) U/L ALT 522 H (4-34) U/L Alkaline Phosphatase (38-126) U/L Creatine Kinase (30-135) U/L Total Protein 3.8 L (6.3-8.2) g/dL Albumin 1.9 L (3.5-5.0) g/dL Free T4 (0.78-2.19) ng/dL Free T3 pg/mL (2.8-5.3) pg/ml Urine Appearance (Clear) Urine Protein (Negative) Urine Glucose (UA) (Negative) Urine Ketones (Negative) Urine Blood (Negative) Urine Bilirubin (Negative) Ur Leukocyte Esterase (Negative) Urine WBC (0-5) /hpf Ur Squamous Epith Cells (0-4) /hpf Urine Bacteria (None) /hpf Urine Mucus (None) /hpf Stool Occult Blood (Negative) Crossmatch 02/20/23 02/20/23 Range/Units 03:38 06:08 WBC (3.8-10.6) k/uL RBC 2.77 L (3.80-5.40) m/uL Hgb 8.5 L D (11.4-16.0) gm/dL Hct 26.1 L (34.0-46.0) % Plt Count 123 L (150-450) k/uL Neutrophils # (1.3-7.7) k/uL Lymphocytes # 0.4 L (1.0-4.8) k/uL Lymphocytes # (Manual) (1.0-4.8) k/uL ABG pH (7.35-7.45) ABG pCO2 (35-45) mmHg ABG HCO3 (21-25) mmol/L ABG Total CO2 (19-24) mmol/L ABG O2 Saturation (94-97) % Sodium (137-145) mmol/L Potassium (3.5-5.1) mmol/L Chloride (98-107) mmol/L Carbon Dioxide (22-30) mmol/L BUN (7-17) mg/dL Creatinine (0.52-1.04) mg/dL Glucose (74-99) mg/dL POC Glucose (mg/dL) 148 H (70-110) mg/dL Osmolality (280-301) mosm/kg Calcium (8.4-10.2) mg/dL Magnesium (1.6-2.3) mg/dL AST (14-36) U/L ALT (4-34) U/L Alkaline Phosphatase (38-126) U/L Creatine Kinase (30-135) U/L Total Protein (6.3-8.2) g/dL Albumin (3.5-5.0) g/dL Free T4 (0.78-2.19) ng/dL Free T3 pg/mL (2.8-5.3) pg/ml Urine Appearance (Clear) Urine Protein (Negative) Urine Glucose (UA) (Negative) Urine Ketones (Negative) Urine Blood (Negative) Urine Bilirubin (Negative) Ur Leukocyte Esterase (Negative) Urine WBC (0-5) /hpf Ur Squamous Epith Cells (0-4) /hpf Urine Bacteria (None) /hpf Urine Mucus (None) /hpf Stool Occult Blood (Negative) Crossmatch Assessment and Plan Plan: Acute gastrointestinal bleeding Acute renal failure Hypovolemic shock Acute metabolic acidosis Severe hyperkalemia requiring hemodialysis Acute shock liver Possible seizure activity, patient received IV Ativan, after nurse suspected seizure activity Underlying history of hypertension Underlying history of hyperlipidemia Underlying history of coronary artery disease At this time patient is admitted to intensive care unit, she was intubated and started on mechanical ventilation She received hemodialysis in the emergency room Pulmonary critical care, nephrology, neurology, and cardiology consultation req uested Prognosis is guarded
--- NOTE | 2023-02-20 18:53 | CA ---
Transthoracic Echo Report Name: Katie Parry Age: 77 Gender: F : 1945 Exam Date: 02/20/2023 10:05 Exam Location: [facility] Ht (in): 61 Wt (lb): 123 Ordering Physician: Linda Desir MD ([id number]) Attending/Referring Phys: [employer] Executive Chani Campa RDCS Procedure CPT: Indications: AMS, heart function Cardiac Hx: Technical Quality: Fair Contrast 1: Total Dose (mL): Contrast 2: Total Dose (mL): MEASUREMENTS (Male / Female) Normal Values 2D ECHO LV Diastolic Diameter PLAX 5.6 cm 4.2 - 5.9 / 3.9 - 5.3 cm LV Systolic Diameter PLAX 4.4 cm IVS Diastolic Thickness 1.1 cm 0.6 - 1.0 / 0.6 - 0.9 cm LVPW Diastolic Thickness 1.1 cm 0.6 - 1.0 / 0.6 - 0.9 cm LV Relative Wall Thickness 0.4 FINDINGS Left Ventricle Mildly increased septal wall thickness. Mildly increased posterior wall thickness. Mildly increased left ventricular diastolic diameter. Reduced global left ventricular systolic function. Left ventricular ejection fraction is estimated at 30-35 %. Right Ventricle Right Atrium Left Atrium Mitral Valve Moderate to severe mitral regurgitation. Aortic Valve Moderate aortic regurgitation. Tricuspid Valve Moderate tricuspid regurgitation Pulmonic Valve Pericardium No pericardial effusion. Pleural effusion. Aorta CONCLUSIONS Limited echo. 1. Severe global hyperkyphosis 2. Moderate severe mitral regurgitation with moderate tricuspid regurgitation 3. Moderate aortic regurgitation Previewed by: Dr. Manjeet Castro MD (Electronically Signed) Final Date: 20 February 2023 18:52
[2023-02-20] MEDS ORDERED: CHLORHEXIDINE GLUCONATE 15 ML CUP MUCOUS MEM SCH (21:00)
--- NOTE | 2023-02-20 21:27 | P.CONS ---
History of Present Illness - Reason for Consult Consult date: 02/20/23 - History of Present Illness Patient is a 77-year-old female with a past medical history pertinent for hyperlipidemia memory impairment patient was brought into the hospital by EMS with the daughter noted the patient having dark stools patient on presentation to the hospital was afebrile and no fever has been recorded subsequently patient was tachycardic and hypotensive patient did have elevated white count of 14.7 did have elevated urinary creatinine also elevated liver enzymes did have a positive urine sediment stool was positive patient did went into respiratory distress unresponsive get intubated in the ICU and currently on high-dose pressor support patient did have a ultrasound-guided right femoral d ialysis catheter placement last night by vascular surgery patient also have a CT of abdominal pelvis changes suggestive of mild diverticulitis sigmoid colon atrophic left kidney patient was started on Zosyn this morning infectious disease was consulted for further management of antibiotic therapy most information has been obtained from review the chart talking to the daughter at the bedside as well as to the nursing staff that the patient is currently intubated on the vent and cannot provide any history Past Medical History Past Medical History: Hyperlipidemia, Memory Impairment Additional Past Medical History / Comment(s): PAST HISTORY OF THYROID PROBLEMS, LEFT BREAST CANCER, swollen feet/takes Lasix History of Any Multi-Drug Resistant Organisms: None Reported Past Surgical History: Heart Catheterization With Stent Additional Past Surgical History / Comment(s): BILATERAL CATARACT SURGERY , LEFT BREAST LUMPECTOMY,LAPAROTOMY FOR ECTOPIC PREG, Left TIFFANY (12/07/21). Hip replacemnt in 2021 per jessie Ca Date of Last Stent Placement:: roughly July, Smoking Status: Current every day smoker Medications and Allergies Home Medications Medication Instructions Recorded Confirmed Type Cholecalciferol [Vitamin D3 (25 25 mcg PO DAILY 03/15/21 02/19/23 History Mcg = 1000 Iu)] Rosuvastatin Calcium [Crestor] 10 mg PO DAILY 03/15/21 02/19/23 History Sertraline [Zoloft] 200 mg PO HS 03/15/21 02/19/23 History Metoprolol Tartrate [Lopressor] 25 mg PO HS 04/05/21 02/19/23 History Metoprolol Tartrate [Lopressor] 50 mg PO DAILY 04/05/21 02/19/23 History Aspirin EC [Ecotrin Low Dose] 81 mg PO DAILY 02/19/23 02/19/23 History Furosemide [Lasix] 40 mg PO DAILY 02/19/23 02/19/23 History Losartan [Cozaar] 50 mg PO DAILY 02/19/23 02/19/23 History Spironolactone [Aldactone] 12.5 mg PO HS 02/19/23 02/19/23 History Allergies Allergy/AdvReac Type Severity Reaction Status Date / Time No Known Allergies Allergy Verified 02/19/23 19:10 Physical Exam Vitals: Vital Signs Temp Pulse Pulse Resp BP BP Pulse Ox 02/20/23 11:30 128 H 28 H 118/91 93 L 02/20/23 11:25 117 H 28 H 115/26 93 L 02/20/23 11:20 118 H 28 H 70/39 93 L 02/20/23 11:15 122 H 28 H 76/48 93 L 02/20/23 11:13 02/20/23 11:10 121 H 28 H 39/27 95 02/20/23 11:05 112 H 28 H 108/69 97 02/20/23 11:00 100 28 H 82/50 97 02/20/23 10:55 98 28 H 124/86 02/20/23 10:50 102 H 28 H 91/31 02/20/23 10:45 111 H 28 H 85/51 02/20/23 10:40 73 28 H 110/62 95 02/20/23 10:35 75 28 H 121/35 93 L 02/20/23 10:30 124 H 28 H 96/55 97 02/20/23 10:25 128 H 28 H 58/39 95 02/20/23 10:20 71 28 H 82/24 97 02/20/23 10:15 69 28 H 96/34 99 02/20/23 10:10 78 28 H 95/44 100 02/20/23 10:05 88 17 98/39 100 02/20/23 10:00 65 28 H 82/60 100 02/20/23 09:55 141 H 30 H 100 02/20/23 09:50 111 H 28 H 100 02/20/23 09:45 70 29 H 100 02/20/23 09:40 73 28 H 100 02/20/23 09:35 74 28 H 100 02/20/23 09:30 70 28 H 97/28 100 02/20/23 09:25 68 28 H 97/28 100 02/20/23 09:20 89 28 H 84/36 99 02/20/23 09:15 66 28 H 84/36 100 02/20/23 09:10 70 28 H 66/35 99 02/20/23 09:05 70 28 H 88/34 100 02/20/23 09:00 83 28 H 100 02/20/23 08:55 66 28 H 120/40 100 02/20/23 08:50 61 28 H 120/40 100 02/20/23 08:45 73 28 H 120/40 99 02/20/23 08:40 75 28 H 106/52 99 02/20/23 08:35 64 28 H 106/52 99 02/20/23 08:30 72 28 H 85/28 100 02/20/23 08:25 74 28 H 85/28 100 02/20/23 08:20 78 28 H 73/21 100 02/20/23 08:15 80 28 H 87/38 100 02/20/23 08:10 53 L 28 H 97 02/20/23 08:06 02/20/23 08:05 80 28 H 02/20/23 08:00 97.1 F L 76 28 H 96 02/20/23 07:55 82 28 H 02/20/23 07:50 83 28 H 112/28 89 L 02/20/23 07:45 77 28 H 112/28 87 L 02/20/23 07:40 74 28 H 88/62 99 02/20/23 07:35 73 28 H 88/62 02/20/23 07:30 78 28 H 100 02/20/23 07:25 80 28 H 100/31 02/20/23 07:20 72 28 H 90/43 02/20/23 07:15 70 28 H 90/43 96 02/20/23 07:10 71 4 L 69/39 94 L 02/20/23 07:05 67 28 H 69/39 96 02/20/23 07:00 78 14 46/35 97 02/20/23 06:45 70 22 74/57 94 L 02/20/23 06:30 70 18 118/67 96 02/20/23 06:15 68 11 L 81/71 95 02/20/23 06:00 68 11 L 117/85 90 L 02/20/23 05:45 76 19 106/94 91 L 02/20/23 05:30 74 12 98/62 98 02/20/23 05:27 97.3 F L 98 28 H 103/93 96 02/20/23 05:15 76 35 H 102/86 95 02/20/23 05:00 73 8 L 82/37 82 L 02/20/23 04:45 62 117/68 02/20/23 04:30 101 H 22 90/27 99 02/20/23 04:15 137 H 16 82/62 99 02/20/23 04:00 97.2 F L 133 H 32 H 118/92 02/20/23 03:45 144 H 30 H 02/20/23 03:30 133 H 28 H 95 02/20/23 03:27 02/20/23 03:15 131 H 23 57/41 02/20/23 03:00 144 H 25 H 66/52 78 L 02/20/23 02:45 120 H 24 02/20/23 02:30 96 15 02/20/23 02:15 99 34 H 103/93 02/20/23 02:02 97.3 F L 103 H 28 H 86/70 96 02/20/23 02:00 102 H 28 H 86/70 98 02/20/23 01:45 85 28 H 133/95 02/20/23 01:42 97.2 F L 91 31 H 133/95 98 02/20/23 01:33 97.0 F L 109 H 28 H 98/80 97 02/20/23 01:30 120 H 18 80/51 73 L 02/20/23 01:27 02/20/23 01:20 02/20/23 01:15 87 21 168/127 80 L 02/20/23 01:12 02/20/23 01:00 96 35 H 168/127 02/20/23 00:50 92 16 37/23 02/20/23 00:40 96.4 F L 93 91 18 59/40 93/77 79 L 02/20/23 00:30 86 17 52/28 02/20/23 00:20 85 18 93/77 02/20/23 00:10 79 29 H 110/36 02/20/23 00:00 79 21 45/30 02/19/23 23:50 78 21 127/97 02/19/23 23:40 79 24 84/68 02/19/23 23:30 79 25 H 111/68 02/19/23 23:20 78 24 106/63 02/19/23 23:10 76 34 H 106/63 02/19/23 23:00 77 23 94/78 02/19/23 22:50 70 26 H 153/137 91 L 02/19/23 22:40 67 23 109/76 96 02/19/23 22:30 67 20 109/76 02/19/23 22:20 67 19 122/101 02/19/23 22:10 36 H 105/88 02/19/23 22:00 63 79/53 02/19/23 21:50 61 49/28 02/19/23 21:40 75 134/107 82 L 02/19/23 21:30 100/74 02/19/23 21:20 59 L 19 100/74 02/19/23 21:10 59 L 17 02/19/23 20:40 56/37 02/19/23 20:30 56/37 02/19/23 20:20 58 L 20 102/71 99 02/19/23 20:10 56 L 20 67/40 99 02/19/23 20:00 59 L 20 58/48 97 02/19/23 19:50 55 L 20 92/66 100 02/19/23 19:40 55 L 22 103/73 100 02/19/23 19:36 55 L 20 103/73 100 02/19/23 19:35 62 20 103/73 99 02/19/23 19:20 57 L 17 83/60 92 L 02/19/23 19:19 83/60 02/19/23 19:15 34/23 02/19/23 19:10 45 L 21 117/98 99 02/19/23 18:40 45 L 22 106/65 02/19/23 18:30 47 L 23 101/39 02/19/23 18:10 58 L 28 H 99/65 97 02/19/23 18:00 16 93/74 02/19/23 17:50 61 27 H 83/60 02/19/23 17:37 97 02/19/23 17:32 82 22 83/60 90 L FiO2 02/20/23 11:30 02/20/23 11:25 02/20/23 11:20 02/20/23 11:15 02/20/23 11:13 100 02/20/23 11:10 02/20/23 11:05 02/20/23 11:00 02/20/23 10:55 02/20/23 10:50 02/20/23 10:45 02/20/23 10:40 02/20/23 10:35 02/20/23 10:30 02/20/23 10:25 02/20/23 10:20 02/20/23 10:15 02/20/23 10:10 02/20/23 10:05 02/20/23 10:00 02/20/23 09:55 02/20/23 09:50 02/20/23 09:45 02/20/23 09:40 02/20/23 09:35 02/20/23 09:30 02/20/23 09:25 02/20/23 09:20 02/20/23 09:15 02/20/23 09:10 02/20/23 09:05 02/20/23 09:00 02/20/23 08:55 02/20/23 08:50 02/20/23 08:45 02/20/23 08:40 02/20/23 08:35 02/20/23 08:30 02/20/23 08:25 02/20/23 08:20 02/20/23 08:15 02/20/23 08:10 02/20/23 08:06 100 02/20/23 08:05 02/20/23 08:00 02/20/23 07:55 02/20/23 07:50 02/20/23 07:45 02/20/23 07:40 02/20/23 07:35 02/20/23 07:30 02/20/23 07:25 02/20/23 07:20 02/20/23 07:15 02/20/23 07:10 02/20/23 07:05 02/20/23 07:00 02/20/23 06:45 02/20/23 06:30 02/20/23 06:15 02/20/23 06:00 02/20/23 05:45 02/20/23 05:30 02/20/23 05:27 02/20/23 05:15 02/20/23 05:00 02/20/23 04:45 02/20/23 04:30 02/20/23 04:15 02/20/23 04:00 100 02/20/23 03:45 02/20/23 03:30 02/20/23 03:27 100 02/20/23 03:15 02/20/23 03:00 02/20/23 02:45 02/20/23 02:30 02/20/23 02:15 02/20/23 02:02 02/20/23 02:00 02/20/23 01:45 02/20/23 01:42 02/20/23 01:33 02/20/23 01:30 02/20/23 01:27 100 02/20/23 01:20 1.0 02/20/23 01:15 02/20/23 01:12 100 02/20/23 01:00 02/20/23 00:50 02/20/23 00:40 02/20/23 00:30 02/20/23 00:20 02/20/23 00:10 02/20/23 00:00 02/19/23 23:50 02/19/23 23:40 02/19/23 23:30 02/19/23 23:20 02/19/23 23:10 02/19/23 23:00 02/19/23 22:50 02/19/23 22:40 02/19/23 22:30 02/19/23 22:20 02/19/23 22:10 02/19/23 22:00 02/19/23 21:50 02/19/23 21:40 02/19/23 21:30 02/19/23 21:20 02/19/23 21:10 02/19/23 20:40 02/19/23 20:30 02/19/23 20:20 02/19/23 20:10 02/19/23 20:00 02/19/23 19:50 02/19/23 19:40 02/19/23 19:36 02/19/23 19:35 02/19/23 19:20 02/19/23 19:19 02/19/23 19:15 02/19/23 19:10 02/19/23 18:40 02/19/23 18:30 02/19/23 18:10 02/19/23 18:00 02/19/23 17:50 02/19/23 17:37 02/19/23 17:32 Intake and Output 02/19/23 02/20/23 02/20/23 22:59 06:59 14:59 Intake Total 610 3536.990 1280.436 Output Total 0 25 Balance 610 3536.990 1255.436 Intake: Intake, IV Titration 610 2426.990 1280.436 Amount Desmopressin Acetate 30 50 mcg In Sodium Chloride 0. 9% 50 ml @ 200 mls/hr IVPB ONCE ONE Rx#: [id number] Dexmedetomidine/0.9% NaCl 61.372 127.748 (Pmx) 400 mcg In Empty Bag 1 bag @ 0.2 MCG/KG/HR 3.856 mls/hr IV .Q24H [facility] Rx#:[id number] Dextrose 10% in Water 500 100 100 ml In Empty Bag 1 bag @ 50 mls/hr IV .Q10H [facility] Rx #:[id number] Dextrose 5% in Water 1, 200 900 500 000 ml @ 100 mls/hr IV . [id number] [facility] with Sodium Bicarb (1 Meq/ml) 150 ml Rx#:[id number] Norepinephrine 4 mg In 195.618 Sodium Chloride 0.9% 250 ml @ 0.03 MCG/KG/MIN 8. 814 mls/hr IV .Q24H [facility] Rx#:[id number] Sodium Chloride 0.9% 1, 260 1170 650 000 ml @ 130 mls/hr IV . [id number] [facility]A Rx#:[id number] propofoL 1,000 mg In 2.688 Empty Bag 1 bag @ 15 MCG/ KG/MIN 5.04 mls/hr IV . [id number] [facility] Rx#:[id number] Blood Product 310 Rc As-1 Unit 310 [id number] Hemodialysis 800 Output: Urine 25 Hemodialysis 0 Other: Voiding Method Indwelling Catheter Indwelling Catheter Indwelling Catheter # Bowel Movements 1 1 Weight 77.111 kg 56 kg Results CBC & Chem 7: 02/20/23 14:02 02/20/23 10:55 Labs: Abnormal Lab Results - Last 24 Hours (Table) 02/19/23 02/19/23 02/19/23 Range/Units 17:39 17:40 17:43 WBC 17.8 H (3.8-10.6) k/uL RBC 3.00 L (3.80-5.40) m/uL Hgb 9.3 L (11.4-16.0) gm/dL Hct 29.8 L (34.0-46.0) % Plt Count (150-450) k/uL Neutrophils # 15.8 H (1.3-7.7) k/uL Lymphocytes # (1.0-4.8) k/uL Lymphocytes # (Manual) (1.0-4.8) k/uL ABG pH (7.35-7.45) ABG pCO2 (35-45) mmHg ABG pO2 (83-108) mmHg ABG HCO3 (21-25) mmol/L ABG Total CO2 (19-24) mmol/L ABG O2 Saturation (94-97) % VBG pH (7.31-7.41) VBG HCO3 (24-28) mmol/L Sodium (137-145) mmol/L Potassium (3.5-5.1) mmol/L Chloride (98-107) mmol/L Carbon Dioxide (22-30) mmol/L BUN (7-17) mg/dL Creatinine (0.52-1.04) mg/dL Glucose (74-99) mg/dL POC Glucose (mg/dL) 62 L (70-110) mg/dL Osmolality (280-301) mosm/kg Plasma Lactic Acid [place] (0.7-2.0) mmol/L Calcium (8.4-10.2) mg/dL Magnesium (1.6-2.3) mg/dL AST (14-36) U/L ALT (4-34) U/L Alkaline Phosphatase (38-126) U/L Creatine Kinase (30-135) U/L Total Protein (6.3-8.2) g/dL Albumin (3.5-5.0) g/dL Free T4 (0.78-2.19) ng/dL Free T3 pg/mL (2.8-5.3) pg/ml Urine Appearance (Clear) Urine Protein (Negative) Urine Glucose (UA) (Negative) Urine Ketones (Negative) Urine Blood (Negative) Urine Bilirubin (Negative) Ur Leukocyte Esterase (Negative) Urine WBC (0-5) /hpf Ur Squamous Epith Cells (0-4) /hpf Urine Bacteria (None) /hpf Urine Mucus (None) /hpf Stool Occult Blood (Negative) Crossmatch See Detail 02/19/23 02/19/23 02/19/23 Range/Units 17:43 17:43 18:54 WBC (3.8-10.6) k/uL RBC (3.80-5.40) m/uL Hgb (11.4-16.0) gm/dL Hct (34.0-46.0) % Plt Count (150-450) k/uL Neutrophils # (1.3-7.7) k/uL Lymphocytes # (1.0-4.8) k/uL Lymphocytes # (Manual) (1.0-4.8) k/uL ABG pH (7.35-7.45) ABG pCO2 (35-45) mmHg ABG pO2 (83-108) mmHg ABG HCO3 (21-25) mmol/L ABG Total CO2 (19-24) mmol/L ABG O2 Saturation (94-97) % VBG pH (7.31-7.41) VBG HCO3 (24-28) mmol/L Sodium (137-145) mmol/L Potassium 7.2 H* (3.5-5.1) mmol/L Chloride 109 H (98-107) mmol/L Carbon Dioxide <5 L* (22-30) mmol/L BUN 165 H* (7-17) mg/dL Creatinine 8.20 H* (0.52-1.04) mg/dL Glucose 62 L (74-99) mg/dL POC Glucose (mg/dL) 156 H (70-110) mg/dL Osmolality (280-301) mosm/kg Plasma Lactic Acid [place] (0.7-2.0) mmol/L Calcium 8.3 L (8.4-10.2) mg/dL Magnesium 2.5 H (1.6-2.3) mg/dL AST 1107 H (14-36) U/L ALT 630 H (4-34) U/L Alkaline Phosphatase 128 H (38-126) U/L Creatine Kinase (30-135) U/L Total Protein 6.0 L (6.3-8.2) g/dL Albumin 3.2 L (3.5-5.0) g/dL Free T4 (0.78-2.19) ng/dL Free T3 pg/mL (2.8-5.3) pg/ml Urine Appearance (Clear) Urine Protein (Negative) Urine Glucose (UA) (Negative) Urine Ketones (Negative) Urine Blood (Negative) Urine Bilirubin (Negative) Ur Leukocyte Esterase (Negative) Urine WBC (0-5) /hpf Ur Squamous Epith Cells (0-4) /hpf Urine Bacteria (None) /hpf Urine Mucus (None) /hpf Stool Occult Blood Positive H (Negative) Crossmatch 02/19/23 02/19/23 02/19/23 Range/Units 18:55 18:55 19:09 WBC 14.7 H (3.8-10.6) k/uL RBC 2.82 L (3.80-5.40) m/uL Hgb 9.0 L (11.4-16.0) gm/dL Hct 27.6 L (34.0-46.0) % Plt Count (150-450) k/uL Neutrophils # 13.4 H (1.3-7.7) k/uL Lymphocytes # 0.9 L (1.0-4.8) k/uL Lymphocytes # (Manual) (1.0-4.8) k/uL ABG pH (7.35-7.45) ABG pCO2 (35-45) mmHg ABG pO2 (83-108) mmHg ABG HCO3 (21-25) mmol/L ABG Total CO2 (19-24) mmol/L ABG O2 Saturation (94-97) % VBG pH (7.31-7.41) VBG HCO3 (24-28) mmol/L Sodium (137-145) mmol/L Potassium 6.6 H* (3.5-5.1) mmol/L Chloride 110 H (98-107) mmol/L Carbon Dioxide <5 L* (22-30) mmol/L BUN 161 H* (7-17) mg/dL Creatinine 7.93 H* (0.52-1.04) mg/dL Glucose 126 H (74-99) mg/dL POC Glucose (mg/dL) (70-110) mg/dL Osmolality 360 H* (280-301) mosm/kg Plasma Lactic Acid [place] (0.7-2.0) mmol/L Calcium 7.6 L (8.4-10.2) mg/dL Magnesium (1.6-2.3) mg/dL AST 1069 H (14-36) U/L ALT 649 H (4-34) U/L Alkaline Phosphatase (38-126) U/L Creatine Kinase (30-135) U/L Total Protein 5.4 L (6.3-8.2) g/dL Albumin 2.8 L (3.5-5.0) g/dL Free T4 (0.78-2.19) ng/dL Free T3 pg/mL (2.8-5.3) pg/ml Urine Appearance (Clear) Urine Protein (Negative) Urine Glucose (UA) (Negative) Urine Ketones (Negative) Urine Blood (Negative) Urine Bilirubin (Negative) Ur Leukocyte Esterase (Negative) Urine WBC (0-5) /hpf Ur Squamous Epith Cells (0-4) /hpf Urine Bacteria (None) /hpf Urine Mucus (None) /hpf Stool Occult Blood (Negative) Crossmatch 02/19/23 02/19/23 02/19/23 Range/Units 19:09 19:15 19:41 WBC (3.8-10.6) k/uL RBC (3.80-5.40) m/uL Hgb (11.4-16.0) gm/dL Hct (34.0-46.0) % Plt Count (150-450) k/uL Neutrophils # (1.3-7.7) k/uL Lymphocytes # (1.0-4.8) k/uL Lymphocytes # (Manual) (1.0-4.8) k/uL ABG pH 7.06 L* (7.35-7.45) ABG pCO2 26 L (35-45) mmHg ABG pO2 (83-108) mmHg ABG HCO3 7 L* (21-25) mmol/L ABG Total CO2 8 L (19-24) mmol/L ABG O2 Saturation 97.5 H (94-97) % VBG pH (7.31-7.41) VBG HCO3 (24-28) mmol/L Sodium (137-145) mmol/L Potassium (3.5-5.1) mmol/L Chloride (98-107) mmol/L Carbon Dioxide (22-30) mmol/L BUN (7-17) mg/dL Creatinine (0.52-1.04) mg/dL Glucose (74-99) mg/dL POC Glucose (mg/dL) 136 H (70-110) mg/dL Osmolality (280-301) mosm/kg Plasma Lactic Acid [place] (0.7-2.0) mmol/L Calcium (8.4-10.2) mg/dL Magnesium (1.6-2.3) mg/dL AST (14-36) U/L ALT (4-34) U/L Alkaline Phosphatase (38-126) U/L Creatine Kinase (30-135) U/L Total Protein (6.3-8.2) g/dL Albumin (3.5-5.0) g/dL Free T4 0.67 L (0.78-2.19) ng/dL Free T3 pg/mL 7.5 H (2.8-5.3) pg/ml Urine Appearance (Clear) Urine Protein (Negative) Urine Glucose (UA) (Negative) Urine Ketones (Negative) Urine Blood (Negative) Urine Bilirubin (Negative) Ur Leukocyte Esterase (Negative) Urine WBC (0-5) /hpf Ur Squamous Epith Cells (0-4) /hpf Urine Bacteria (None) /hpf Urine Mucus (None) /hpf Stool Occult Blood (Negative) Crossmatch 02/19/23 02/19/23 02/20/23 Range/Units 20:06 21:40 00:12 WBC (3.8-10.6) k/uL RBC (3.80-5.40) m/uL Hgb (11.4-16.0) gm/dL Hct (34.0-46.0) % Plt Count (150-450) k/uL Neutrophils # (1.3-7.7) k/uL Lymphocytes # (1.0-4.8) k/uL Lymphocytes # (Manual) (1.0-4.8) k/uL ABG pH (7.35-7.45) ABG pCO2 (35-45) mmHg ABG pO2 (83-108) mmHg ABG HCO3 (21-25) mmol/L ABG Total CO2 (19-24) mmol/L ABG O2 Saturation (94-97) % VBG pH (7.31-7.41) VBG HCO3 (24-28) mmol/L Sodium (137-145) mmol/L Potassium 5.5 H (3.5-5.1) mmol/L Chloride (98-107) mmol/L Carbon Dioxide (22-30) mmol/L BUN (7-17) mg/dL Creatinine (0.52-1.04) mg/dL Glucose (74-99) mg/dL POC Glucose (mg/dL) 120 H (70-110) mg/dL Osmolality (280-301) mosm/kg Plasma Lactic Acid [place] (0.7-2.0) mmol/L Calcium (8.4-10.2) mg/dL Magnesium (1.6-2.3) mg/dL AST (14-36) U/L ALT (4-34) U/L Alkaline Phosphatase (38-126) U/L Creatine Kinase 310 H (30-135) U/L Total Protein (6.3-8.2) g/dL Albumin (3.5-5.0) g/dL Free T4 (0.78-2.19) ng/dL Free T3 pg/mL (2.8-5.3) pg/ml Urine Appearance Turbid H (Clear) Urine Protein 3+ H (Negative) Urine Glucose (UA) Trace H (Negative) Urine Ketones Trace H (Negative) Urine Blood Small H (Negative) Urine Bilirubin 1+ H (Negative) Ur Leukocyte Esterase Trace H (Negative) Urine WBC 23 H (0-5) /hpf Ur Squamous Epith Cells 16 H (0-4) /hpf Urine Bacteria Occasional H (None) /hpf Urine Mucus Rare H (None) /hpf Stool Occult Blood (Negative) Crossmatch 02/20/23 02/20/23 02/20/23 Range/Units 01:37 01:37 03:37 WBC (3.8-10.6) k/uL RBC 2.16 L (3.80-5.40) m/uL Hgb 6.6 L* D (11.4-16.0) gm/dL Hct 20.3 L (34.0-46.0) % Plt Count 120 L D (150-450) k/uL Neutrophils # (1.3-7.7) k/uL Lymphocytes # (1.0-4.8) k/uL Lymphocytes # (Manual) 0.56 L (1.0-4.8) k/uL ABG pH (7.35-7.45) ABG pCO2 (35-45) mmHg ABG pO2 (83-108) mmHg ABG HCO3 (21-25) mmol/L ABG Total CO2 (19-24) mmol/L ABG O2 Saturation (94-97) % VBG pH (7.31-7.41) VBG HCO3 (24-28) mmol/L Sodium 135 L (137-145) mmol/L Potassium 2.9 L 3.4 L (3.5-5.1) mmol/L Chloride 111 H (98-107) mmol/L Carbon Dioxide 12 L (22-30) mmol/L BUN 60 H (7-17) mg/dL Creatinine 3.00 H (0.52-1.04) mg/dL Glucose (74-99) mg/dL POC Glucose (mg/dL) (70-110) mg/dL Osmolality (280-301) mosm/kg Plasma Lactic Acid [place] (0.7-2.0) mmol/L Calcium 7.3 L (8.4-10.2) mg/dL Magnesium (1.6-2.3) mg/dL AST 964 H (14-36) U/L ALT 522 H (4-34) U/L Alkaline Phosphatase (38-126) U/L Creatine Kinase (30-135) U/L Total Protein 3.8 L (6.3-8.2) g/dL Albumin 1.9 L (3.5-5.0) g/dL Free T4 (0.78-2.19) ng/dL Free T3 pg/mL (2.8-5.3) pg/ml Urine Appearance (Clear) Urine Protein (Negative) Urine Glucose (UA) (Negative) Urine Ketones (Negative) Urine Blood (Negative) Urine Bilirubin (Negative) Ur Leukocyte Esterase (Negative) Urine WBC (0-5) /hpf Ur Squamous Epith Cells (0-4) /hpf Urine Bacteria (None) /hpf Urine Mucus (None) /hpf Stool Occult Blood (Negative) Crossmatch 02/20/23 02/20/23 02/20/23 Range/Units 03:38 06:08 09:39 WBC (3.8-10.6) k/uL RBC 2.77 L (3.80-5.40) m/uL Hgb 8.5 L D (11.4-16.0) gm/dL Hct 26.1 L (34.0-46.0) % Plt Count 123 L (150-450) k/uL Neutrophils # (1.3-7.7) k/uL Lymphocytes # 0.4 L (1.0-4.8) k/uL Lymphocytes # (Manual) (1.0-4.8) k/uL ABG pH 7.17 L* (7.35-7.45) ABG pCO2 (35-45) mmHg ABG pO2 52 L* (83-108) mmHg ABG HCO3 14 L (21-25) mmol/L ABG Total CO2 15 L (19-24) mmol/L ABG O2 Saturation 81.2 L (94-97) % VBG pH (7.31-7.41) VBG HCO3 (24-28) mmol/L Sodium (137-145) mmol/L Potassium (3.5-5.1) mmol/L Chloride (98-107) mmol/L Carbon Dioxide (22-30) mmol/L BUN (7-17) mg/dL Creatinine (0.52-1.04) mg/dL Glucose (74-99) mg/dL POC Glucose (mg/dL) 148 H (70-110) mg/dL Osmolality (280-301) mosm/kg Plasma Lactic Acid [place] (0.7-2.0) mmol/L Calcium (8.4-10.2) mg/dL Magnesium (1.6-2.3) mg/dL AST (14-36) U/L ALT (4-34) U/L Alkaline Phosphatase (38-126) U/L Creatine Kinase (30-135) U/L Total Protein (6.3-8.2) g/dL Albumin (3.5-5.0) g/dL Free T4 (0.78-2.19) ng/dL Free T3 pg/mL (2.8-5.3) pg/ml Urine Appearance (Clear) Urine Protein (Negative) Urine Glucose (UA) (Negative) Urine Ketones (Negative) Urine Blood (Negative) Urine Bilirubin (Negative) Ur Leukocyte Esterase (Negative) Urine WBC (0-5) /hpf Ur Squamous Epith Cells (0-4) /hpf Urine Bacteria (None) /hpf Urine Mucus (None) /hpf Stool Occult Blood (Negative) Crossmatch 02/20/23 02/20/23 02/20/23 Range/Units 09:46 10:00 10:55 WBC (3.8-10.6) k/uL RBC (3.80-5.40) m/uL Hgb (11.4-16.0) gm/dL Hct (34.0-46.0) % Plt Count (150-450) k/uL Neutrophils # (1.3-7.7) k/uL Lymphocytes # (1.0-4.8) k/uL Lymphocytes # (Manual) (1.0-4.8) k/uL ABG pH 7.26 L (7.35-7.45) ABG pCO2 47 H (35-45) mmHg ABG pO2 35 L* (83-108) mmHg ABG HCO3 (21-25) mmol/L ABG Total CO2 (19-24) mmol/L ABG O2 Saturation 62.9 L (94-97) % VBG pH 7.19 L* (7.31-7.41) VBG HCO3 15 L (24-28) mmol/L Sodium (137-145) mmol/L Potassium (3.5-5.1) mmol/L Chloride 111 H (98-107) mmol/L Carbon Dioxide 17 L (22-30) mmol/L BUN 52 H (7-17) mg/dL Creatinine 2.84 H (0.52-1.04) mg/dL Glucose 146 H (74-99) mg/dL POC Glucose (mg/dL) (70-110) mg/dL Osmolality (280-301) mosm/kg Plasma Lactic Acid [place] (0.7-2.0) mmol/L Calcium 6.3 L* (8.4-10.2) mg/dL Magnesium 1.4 L (1.6-2.3) mg/dL AST (14-36) U/L ALT (4-34) U/L Alkaline Phosphatase (38-126) U/L Creatine Kinase (30-135) U/L Total Protein (6.3-8.2) g/dL Albumin (3.5-5.0) g/dL Free T4 (0.78-2.19) ng/dL Free T3 pg/mL (2.8-5.3) pg/ml Urine Appearance (Clear) Urine Protein (Negative) Urine Glucose (UA) (Negative) Urine Ketones (Negative) Urine Blood (Negative) Urine Bilirubin (Negative) Ur Leukocyte Esterase (Negative) Urine WBC (0-5) /hpf Ur Squamous Epith Cells (0-4) /hpf Urine Bacteria (None) /hpf Urine Mucus (None) /hpf Stool Occult Blood (Negative) Crossmatch 02/20/23 02/20/23 Range/Units 10:55 11:43 WBC (3.8-10.6) k/uL RBC (3.80-5.40) m/uL Hgb (11.4-16.0) gm/dL Hct (34.0-46.0) % Plt Count (150-450) k/uL Neutrophils # (1.3-7.7) k/uL Lymphocytes # (1.0-4.8) k/uL Lymphocytes # (Manual) (1.0-4.8) k/uL ABG pH (7.35-7.45) ABG pCO2 (35-45) mmHg ABG pO2 (83-108) mmHg ABG HCO3 (21-25) mmol/L ABG Total CO2 (19-24) mmol/L ABG O2 Saturation (94-97) % VBG pH (7.31-7.41) VBG HCO3 (24-28) mmol/L Sodium (137-145) mmol/L Potassium (3.5-5.1) mmol/L Chloride (98-107) mmol/L Carbon Dioxide (22-30) mmol/L BUN (7-17) mg/dL Creatinine (0.52-1.04) mg/dL Glucose (74-99) mg/dL POC Glucose (mg/dL) 151 H (70-110) mg/dL Osmolality (280-301) mosm/kg Plasma Lactic Acid [place] 4.5 H* (0.7-2.0) mmol/L Calcium (8.4-10.2) mg/dL Magnesium (1.6-2.3) mg/dL AST (14-36) U/L ALT (4-34) U/L Alkaline Phosphatase (38-126) U/L Creatine Kinase (30-135) U/L Total Protein (6.3-8.2) g/dL Albumin (3.5-5.0) g/dL Free T4 (0.78-2.19) ng/dL Free T3 pg/mL (2.8-5.3) pg/ml Urine Appearance (Clear) Urine Protein (Negative) Urine Glucose (UA) (Negative) Urine Ketones (Negative) Urine Blood (Negative) Urine Bilirubin (Negative) Ur Leukocyte Esterase (Negative) Urine WBC (0-5) /hpf Ur Squamous Epith Cells (0-4) /hpf Urine Bacteria (None) /hpf Urine Mucus (None) /hpf Stool Occult Blood (Negative) Crossmatch Assessment and Plan Plan: 1patient was in the hospital with sepsis in this patient who did have a elevated white count hypotension tachycardia patient presented with the dark stool concerning for GI bleed with a CT abdominal pelvis today shows evidence of diverticulitis we will need to cover for the enteric gram-negative both aerobes and anaerobes 2-patient with redness and has a high risk of nephrotoxicity 3-we will obtain blood cultures stat and check inflammatory markers 4-continue with Zosyn while waiting for the culture to finalize Daughter at the bedside questions were answered We will follow on clinical condition and cultures to further adjust medication if needed Thank you for this consultation we will follow the patient along with you Dictation was produced using [employer] dictation software. please excuse any grammatical, word or spelling errors. Time with Patient: Greater than 30
[2023-02-20 22:10] VITALS: TEMP 98.4
[2023-02-20] MEDS ORDERED: HYDROCORTISONE SUCCINATE 100 MG/2 ML VIAL IV STA (23:54)
[2023-02-21 01:05] VITALS: BP 91/44; PULSE 84; RESP 33
[2023-02-21 08:48] LABS: Ethanol Negative (Negative); Isopropanol Negative (Negative)
--- NOTE | 2023-02-21 10:37 | P.DS ---
Providers Date of admission: 02/19/23 20:15 Expected date of discharge: 02/21/23 Attending physician: Catherine Roberts Consults: 02/19/23 18:54 Consult Physician Routine Consulting Provider: Dontrell Holt Consult Reason/Comments: darell Do you want consulting provider notified?: Already Contacted 02/19/23 20:15 Consult Physician Stat Consulting Provider: Sara Girard Consult Reason/Comments: icu patient Do you want consulting provider notified?: Already Contacted 02/19/23 21:31 Consult Physician Stat Consulting Provider: Buddy Peter Consult Reason/Comments: EMERGENT HD CATH PLACEMENT Do you want consulting provider notified?: Already Contacted 02/19/23 21:46 Consult Physician Stat Consulting Provider: Buddy Peter Consult Reason/Comments: hd cath insertion emergency Do you want consulting provider notified?: Already Contacted 02/20/23 04:02 Consult Physician Stat Consulting Provider: Duarte Duarte Consult Reason/Comments: New afib RVR Do you want consulting provider notified?: Already Contacted 02/20/23 04:03 Consult Physician Stat Consulting Provider: Jesse Rodriguez Consult Reason/Comments: Possible seizures Do you want consulting provider notified?: Already Contacted 02/20/23 10:24 Consult Physician Routine Consulting Provider: Merlene Doshi Consult Reason/Comments: sepsis Do you want consulting provider notified?: Yes Primary care physician: Jamarcus Acosta [place] [facility] Course: Diagnosis on discharge: Acute gastrointestinal bleeding Acute renal failure Hypovolemic shock Acute metabolic acidosis Severe hyperkalemia requiring hemodialysis Acute shock liver Possible sepsis patient was covered with IV Zosyn and infectious disease consultation requested Possible seizure activity, patient received IV Ativan, after nurse suspected seizure activity Underlying history of hypertension Underlying history of hyperlipidemia Underlying history of coronary artery disease Hospital course: Katie Parry, is a 77-year-old female patient of Dr. Acosta who presented to [facility] emergency room with a chief complaint of She was evaluated in the emergency room vital examination on presentation revealed a temperature of 96.4 pulse 82 respiration 22 blood pressure 83/60 pulse ox 90% on room air Laboratory data reveals a white blood count of 14.7 hemoglobin 9.0 platelet count 246 pH 7.06 pCO2 26 PO2 103 sodium 138 potassium 5.5 chloride 110 CO2 less than 5 BUN 161 creatinine 7.93 AST 1069 ALT 649 stools Hemoccult positive Testing in the emergency room revealed computed tomography scan of the abdomen and pelvis reveals changes suggestive for mild diverticulitis of the sigmoid colon and abdominal aortic aneurysm measuring 4.4 cm and atrophic left kidney. EKG revealed sinus bradycardia with first-degree AV block and intraventricular conduction delay. Patient was admitted to ICU for further evaluation and treatment. Patient condition deteriorated during her ICU stay she on 04/23/2023 Patient Condition at Discharge: Critical Plan - Discharge Summary New Discharge Prescriptions: No Action Sertraline [Zoloft] 200 mg PO HS Cholecalciferol [Vitamin D3 (25 Mcg = 1000 Iu)] 25 mcg PO DAILY Metoprolol Tartrate [Lopressor] 25 mg PO HS Metoprolol Tartrate [Lopressor] 50 mg PO DAILY Furosemide [Lasix] 40 mg PO DAILY Aspirin EC [Ecotrin Low Dose] 81 mg PO DAILY Rosuvastatin Calcium [Crestor] 10 mg PO DAILY Spironolactone [Aldactone] 12.5 mg PO HS Losartan [Cozaar] 50 mg PO DAILY Discharge Medication List Cholecalciferol [Vitamin D3 (25 Mcg = 1000 Iu)] 25 mcg PO DAILY 03/15/21 [History] Rosuvastatin Calcium [Crestor] 10 mg PO DAILY 03/15/21 [History] Sertraline [Zoloft] 200 mg PO HS 03/15/21 [History] Metoprolol Tartrate [Lopressor] 25 mg PO HS 04/05/21 [History] Metoprolol Tartrate [Lopressor] 50 mg PO DAILY 04/05/21 [History] Aspirin EC [Ecotrin Low Dose] 81 mg PO DAILY 02/19/23 [History] Furosemide [Lasix] 40 mg PO DAILY 02/19/23 [History] Losartan [Cozaar] 50 mg PO DAILY 02/19/23 [History] Spironolactone [Aldactone] 12.5 mg PO HS 02/19/23 [History] Follow up Appointment(s)/Referral(s): Jamarcus Acosta MD [Primary Care Provider] - 1-2 days Discharge Disposition: - Preliminary Cause of Preliminary Cause of : Hypovolemic shock
--- NOTE | 2023-02-23 05:57 | CDI ---
Documentation Clarification Form Date: 02/23/23 From: Jessica Byrd Admit Date: 02/19/2023 08:15:00 PM Patient Name: Katie Parry Visit Number: [id number] Discharge Date: 02/21/2023 12:05:00 AM ATTENTION: The Clinical Documentation Specialists (CDI) and [facility] Coding Staff appreciate your assistance in clarifying documentation. Please respond to the clarification below the line at the bottom and electronically sign. The CDI & [facility] Coding staff will review the response and follow-up if needed. Please note: Queries are made part of the Legal Health Record. If you have any questions, please contact the author of this message via ITS. Dr. Catherine Roberts, Sepsis is documented in the Dr Meyer consult, Dr An consult and the DS. For each diagnosis, documentation must be clear to determine if the condition was present at the time of the patients inpatient admission or developed during the hospital stay. Additional clarification regarding the sepsis is requested. History/Risk Factors: HLD, memory impairment, hx of thyroid issues, left breast cancer Clinical Indicators: Presented to ED with a chief complaint of She was evaluated in the emergency room vital examination on presentation revealed a temperature of 96.4 pulse 82 respiration 22 [id number] pulse ox 90% on room air. Laboratory data reveals a white blood count of 14.7 hemoglobin 9.0 platelet count 246 pH 7.06 pCO2 26 PO2 103 sodium 138 potassium 5.5 chloride 110 CO2 less than 5 BUN 161 creatinine 7.93 AST 1069 ALT 649 stools hemoccult positive. Treatment: IV fluids, IV antibiotics, IV vasopressors, emergency hemodialysis, mechanical ventilation Definition of Present on Admission (POA): A diagnosis present at the time the order for admission to inpatient status was written. Please clarify if the SEPSIS was POA [ ] Y = Yes, the condition was present at the time of the order for inpatient admission. [ ] N = No, the condition was not present at the time of the order for inpatient admission. [ xxx ] W = Clinically undetermined if the condition was present at the time of the order for inpatient admission. MTDD
== END 2023-02-21 00:05 | disposition expired | DRG 377 ==
LOC: EC 17:22 → 2SICU 20:15
PROVIDERS: ADMIT Internal Medicine; ATTEND Internal Medicine
PROC: 0BH17EZ Insertion of Endotracheal Airway into Trachea, Via Natural or Artificial Opening (ICD-10-PCS; principal; 2023-02-20)
PROC: 0D9670Z Drainage of Stomach with Drainage Device, Via Natural or Artificial Opening (ICD-10-PCS; principal; 2023-02-20)
PROC: 5A1935Z Respiratory Ventilation, Less than 24 Consecutive Hours (ICD-10-PCS; principal; 2023-02-20)
PROC: 02HV33Z Insertion of Infusion Device into Superior Vena Cava, Percutaneous Approach (ICD-10-PCS; 2023-02-20)
PROC: 3E043XZ Introduction of Vasopressor into Central Vein, Percutaneous Approach (ICD-10-PCS; 2023-02-20)
PROC: 06HY33Z Insertion of Infusion Device into Lower Vein, Percutaneous Approach (ICD-10-PCS; 2023-02-20)
PROC: 5A1D70Z Performance of Urinary Filtration, Intermittent, Less than 6 Hours Per Day (ICD-10-PCS; 2023-02-20)
PROC: 30233N1 Transfusion of Nonautologous Red Blood Cells into Peripheral Vein, Percutaneous Approach (ICD-10-PCS; 2023-02-20)
PROC: 04HY32Z Insertion of Monitoring Device into Lower Artery, Percutaneous Approach (ICD-10-PCS; 2023-02-20)
PROC: 4A133J1 Monitoring of Arterial Pulse, Peripheral, Percutaneous Approach (ICD-10-PCS; 2023-02-20)
PROC: 4A133B1 Monitoring of Arterial Pressure, Peripheral, Percutaneous Approach (ICD-10-PCS; 2023-02-20)
DX: K57.33 Diverticulitis of large intestine without perforation or abscess with bleeding (principal); A41.9 Sepsis, unspecified organism; G92.8 Other toxic encephalopathy; N17.0 Acute kidney failure with tubular necrosis; K72.00 Acute and subacute hepatic failure without coma; J96.01 Acute respiratory failure with hypoxia; E87.21 Acute metabolic acidosis; I42.9 Cardiomyopathy, unspecified; R57.1 Hypovolemic shock; D63.1 Anemia in chronic kidney disease; I48.91 Unspecified atrial fibrillation; N18.31 Chronic kidney disease, stage 3a; I71.40 Abdominal aortic aneurysm, without rupture, unspecified; R56.9 Unspecified convulsions; Z66 Do not resuscitate; I25.82 Chronic total occlusion of coronary artery; I12.9 Hypertensive chronic kidney disease with stage 1 through stage 4 chronic kidney disease, or unspecified chronic kidney disease; E87.5 Hyperkalemia; E87.6 Hypokalemia; E86.1 Hypovolemia; I44.0 Atrioventricular block, first degree; I25.10 Atherosclerotic heart disease of native coronary artery without angina pectoris; E78.5 Hyperlipidemia, unspecified; F32.A Depression, unspecified; F41.9 Anxiety disorder, unspecified; F17.210 Nicotine dependence, cigarettes, uncomplicated; Z71.6 Tobacco abuse counseling; Z79.82 Long term (current) use of aspirin; Z79.899 Other long term (current) drug therapy; Z85.3 Personal history of malignant neoplasm of breast; Z96.643 Presence of artificial hip joint, bilateral; Z95.5 Presence of coronary angioplasty implant and graft
CPT/HCPCS: 36415; 36600; 71045; 74176; 80048; 80053; 80143; 80179; 80320; 81001; 82009; 82272; 82550; 82803; 82805; 83605; 83735; 83930; 84132; 84145; 84439; 84443; 84481; 84600; 85025; 85027; 85610; 85730; 86706; 86850; 86900; 86901; 86920; 87040; 87070; 87077; 87186; 87205; 87340; 90935; 93005; 93308; 94002; 95816; 96361; 96365; 96375; 99291; 99292